=== PATIENT | male | born 1970 | race Caucasian/White ===

== ENCOUNTER 2018-06-26 06:25 | Emergency (ER) | payer OTHER ==
[2018-06-26 06:45] VITALS: BP 153/107; PULSE 88; TEMP 98; BMI 22.1
--- NOTE | 2018-06-26 07:09 | PDOC ---
History of Present Illness - General Chief Complaint: Alcohol intoxication Stated Complaint: INTOX Time Seen by Provider: 06/26/18 07:09 - History of Present Illness Initial Comments: 45yo M with PMH of HTN and alcohol intoxication brought in by a friend for intoxication and shoulder pain. Patient admits to drinking 6 beers, the most recent at 5am. Per chart review, patient presented to [facility] last week but was ineligible for detox and referred to a bilingual rehab facility. Patient denies going to rehab. He also complains of left shoulder pain for which he was assessed by Kianna. 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 Has no other acute complaints. Denies recent falls, fever, chills, chest pain, shortness of breath , or abdominal pain. Past History - Past Medical History Allergies/Adverse Reactions: Allergies Allergy/AdvReac Type Severity Reaction Status Date / Time No Known Allergies Allergy Verified 06/21/18 19:09 Home Medications: Ambulatory Orders NK [No Known Home Medication] 06/21/18 Asthma: No Cardiac Disorders: No Diabetes: No GI Disorders: No Seizures: No - Suicide/Smoking/Psychosocial Hx Smoking History: Unknown if ever smoked Have you smoked in the past 12 months: No Hx Alcohol Use: Yes Drug/Substance Use Hx: No Review of Systems - Review of Systems Comments:: Constitutional: no fever, no chills Cardiovascular: no chest pain Respiratory: no cough, no shortness of breath Gastrointestinal: no abdominal pain, no nausea, no vomiting Musculoskeletal: +shoulder pain, no myalgia Skin: no rash, no itching Neurologic: no headache, no dizziness *Physical Exam - Vital Signs Last Vital Signs Temp Pulse Resp BP Pulse Ox 98 F 88 18 153/107 H 100 06/26/18 06:25 06/26/18 06:25 06/26/18 06:25 06/26/18 06:25 06/26/18 06:25 - Physical Exam Comments: General: Awake, alert, and fully oriented, sleeping in stretchable but arousable Head: No signs of trauma Eyes: EOMI, sclera anicteric ENT: Moist mucus membranes Neck: Normal ROM, supple Lungs: Lungs clear, Normal breath sounds Cardio: Regular rhythm, S1 and S2 present Abdomen: Soft, nontender, nondistended Extremities: Distal pulses present; Left shoulder tender on drop can test, normal abduction and adduction with full range of motion. No overlying wound or lesion, neurovascularly intact SKIN: Warm, Dry, normal turgor Neurologic: Cranial nerves II through XII grossly intact. Normal speech Medical Decision Making - Medical Decision Making 45yo M with PMH of HTN and alcohol intoxication brought in by a friend for intoxication and shoulder pain. -DDX includes but not limited to rotator cuff injury, gout, pseudogout, rheumatoid arthitis, cellulitis, osteoarthritis -Presentation consistent with rotator cuff injury as patient tender upon drop can test. Has full range of motion. Neurovascularly intact. Afebrile -Ordered lidocaine patch to place over left shoulder, but patient wanted to leave before receiving one. Patient refused xray as he already had one at [facility]. -Advised patient to enter inpatient rehab but he did not want to stay for case management and asked to be discharged. -Referred to hr specialist -Discharged. 06/26/18 08:35 *DC/Admit/Observation/Transfer Diagnosis at time of Disposition: Shoulder pain, Intoxication - Discharge Dispostion Disposition: HOME Condition at time of disposition: Stable - Referrals Referrals: Rowan Lentz [Primary Care Provider] - Quoc Valdivia MD [Staff Physician] - - Patient Instructions Printed Discharge Instructions: DI for Rotator Cuff Injury, DI for Alcohol Abuse Additional Instructions: You came to the ED for alcohol intoxication and shoulder pain. You did not want us to refer you to a rehab or detox facility. Take [id number] motrin for your pain. Follow the instructions on the medication bottle. We have referred you to an orthopedic doctor. Call and make an appointment at the number provided. Immediate medical attention is required if you experience: Increased pain or swelling, signs of infection including fever and chills, nausea and vomiting, lightheadedness, inability to breathe or very rapid breathing, rapid irregular heartbeat, chest pain. If you think you are having an emergency, call for emergency medical services or present to the emergency department right away --- Usted vino a la jeremy de emergencias por intoxicacin por alcohol y dolor en el hombro. No quiso que lo remitiramos a un centro de rehabilitacin o desintoxicacin. [place] motrin de venta ashia para altamirano dolor. Siga las instrucciones en el envase del medicamento. Le hemos remitido a un mdico ortopdico. Llame y prasad dwain segundo en el nmero proporcionado. Se requiere atencin mdica inmediata si experimenta: Dolor o hinchazn incrementados, signos de infeccin que incluyen fiebre y escalofros, nuseas y vmitos, mareos, incapacidad para respirar o respiracin muy rpida, latidos irregulares rpidos del corazn, dolor en el pecho. Si randy que tiene dwain emergencia, llame para solicitar servicios mdicos de emergencia o presente al departamento de emergencias de inmediato - Post Discharge Activity
[2018-06-26] MEDS ORDERED: LIDOCAINE 5% TOPICAL PATCH TP ONE (07:48)
--- NOTE | 2018-06-26 08:09 | PDOC ---
Attending Attestation - Resident Resident Name: SharonOmairaHannah - ED Attending Attestation I have performed the following: I have examined & evaluated the patient, The case was reviewed & discussed with the resident, I agree w/resident's findings & plan - [facility] HPI: 06/26/18 08:06 48-year-old male with no significant past medical history other than alcohol and cocaine abuse in the past, recently evaluated at [facility] for detox/ rehabilitation on 06/21 but deemed nonemergent and referred, presents now with 3 days of left shoulder pain sustained after pushing a heavy appliance upstairs. The patient was seen at [facility] ED and had an x-ray performed prior to his [facility] visit, x-ray was reportedly normal at that time, he presents now because his shoulder still hurts when he abducts it. No further injuries or falls, no motor or sensory deficit, denies any other complaints. Admits to drinking beer last night, arrives here on his own. Does not wish for detox or rehabilitation at this time, wants to go home. - Physicial Exam PE: 06/26/18 08:07 Vitals as noted, blood pressure slightly elevated, heart rate normal, no tremors to suggest withdrawal Alert, well-appearing, seated on stretcher and ambulating about the emergency department Coherent speech, Sinhala-speaking Exam is atraumatic Shoulder has no obvious deformities, full range of motion with full strength with slight discomfort on full abduction. Full strength in the hand, neurovascularly intact distally. Gait stable, no tremors, no tongue fasciculations - Medical Decision Making 06/26/18 08:08 48-year-old male with alcohol abuse presents with left shoulder strain, neurovascularly intact. No history of direct injury to suggest fracture, had an x-ray at [facility] which was normal. Reassured regarding time frame of healing for shoulder strains and rotator cuff injuries, agrees with NSAIDs course and orthopedics referral as needed, understands return criteria. No indication for emergent imaging NSAIDs course and referral to orthopedics for consideration of MRI imaging as needed Declines detox or rehabilitation, no evidence of intoxication or withdrawal at this time Understands return criteria
[2018-06-26] MEDS ORDERED: LIDOCAINE PATCH REMOVAL MC SCH (22:00)
== END 2018-06-26 08:40 | disposition home or self-care (01) ==
LOC: JER 06:25
DX: F10.120 Alcohol abuse with intoxication, uncomplicated (principal); M25.512 Pain in left shoulder; I10 Essential (primary) hypertension
CPT/HCPCS: 99282-25

== ENCOUNTER 2018-07-09 08:17 | Inpatient (IN) | payer OTHER ==
[2018-07-09 08:35] VITALS: BMI 234.5
--- NOTE | 2018-07-09 08:42 | HP ---
CIWA Score Nausea/Vomitin Muscle Tremors: 2 Anxiety: 2 Agitation: 2 Paroxysmal Sweats: 1-Minimal Palms Moist Orientation: 0-Oriented Tacttile Disturbances: 1-Very Mild Itch/Numbness Auditory Disturbances: 1-Very Mild Visual Disturbances: 0-None Headache: 2-Mild CIWA-Ar Total Score: 13 - Admission Criteria [facility]ASAS Guidelines: Admission for Medically Managed Detox: Requires at least one of the followin. CIWA greater than 12 2. Seizures within the past 24 hours 3. Delirium tremens within the past 24 hours 4. Hallucinations within the past 24 hours 5. Acute intervention needed for co occurring medical disorder 6. Acute intervention needed for co occurring psychiatric disorder 7. Severe withdrawal that cannot be handled at a lower level of care (continued vomiting, continued diarrhea, abnormal vital signs) requiring intravenous medication and/or fluids 8. Patient presents the following: CIWA greater than 12 Admission Criteria Met: Admission criteria met Admission ROS [facility] - HPI Chief Complaint: i need help to stop drinking alcohol and cocaine Allergies/Adverse Reactions: Allergies Allergy/AdvReac Type Severity Reaction Status Date / Time No Known Allergies Allergy Verified 06/21/18 19:09 History of Present Illness: this 48 years old male with alcohol and cocaine dependence,seeking detox, withdrawal symptom,never been in detox before syncope alcohol need help to come in for detox Exam Limitations: No Limitations - Ebola screening Have you been sick,other than usual withdrawal symptoms: No - Review of Systems Constitutional: Loss of Appetite, Malaise, Night Sweats, Changes in sleep, Weakness, Unintentional Wgt. Loss EENT: reports: Nose Congestion Respiratory: reports: No Symptoms reported Cardiac: reports: No Symptoms Reported GI: reports: Nausea, Vomiting, Abdominal cramping : reports: No Symptoms Reported Musculoskeletal: reports: Back Pain, Muscle Pain Integumentary: reports: Dryness Neuro: reports: Headache, Tremors Endocrine: reports: No Symptoms Reported Hematology: reports: No Symptoms Reported Psychiatric: reports: No Sypmtoms Reported Other Systems: Reviewed and Negative Patient History - Patient Medical History Hx Asthma: No Hx Chronic Obstructive Pulmonary Disease (COPD): No Hx Cardiac Disorders: No Hx Congestive Heart Failure: No Hx Hypertension: No HX Cerebrovascular Accident: No Hx Seizures: No Hx Dementia: No Hx Diabetes: No Hx Gastrointestinal Disorders: No Hx Liver Disease: No Hx Genitourinary Disorders: No Hx Sexually Transmitted Disorders: No Hx Renal Disease (ESRD): No Hx Thyroid Disease: No Hx Human Immunodeficiency Virus (HIV): No (last 01/05 negative) Hx Hepatitis C: No Hx Depression: Yes Hx Suicide Attempt: No Hx Bipolar Disorder: No Hx Schizophrenia: No Other Medical History: nosuicidal,no homicidal - Patient Surgical History Past Surgical History: No - PPD History Previous Implant?: Yes Documented Results: Negative w/o proof Implanted On Prior [facility] Admission?: No PPD to be Administered?: Yes - Smoking Cessation Smoking history: Unknown if ever smoked Have you smoked in the past 12 months: No Hx Chewing Tobacco Use: No Initiated information on smoking cessation: Yes 'Breaking Loose' booklet given: 07/09/18 - Substance & Tx. History Hx Alcohol Use: Yes Hx Substance Use: No Substance Use Type: Alcohol Hx Substance Use Treatment: No - Substances Abused Alcohol Route: Oral Amount used: 1pint of rum/2 of 6 packs of 12 ozs of beer Age of first use: 20 Date of Last Use: 07/08/18 Family Disease History - Family Disease History Family Disease History: Other: Father (alcohol,sober) Admission Physical Exam S - Vital Signs Vital Signs: Vital Signs - 24 hr 07/09/18 08:30 Temperature 97.0 F L Pulse Rate 86 Respiratory 19 Rate Blood Pressure 122/80 - Physical General Appearance: Yes: Moderate Distress, Tremorous, Irritable, Sweating, Anxious HEENTM: Yes: Normal ENT Inspection, CECELIA, Pharynx Normal Respiratory: Yes: Lungs Clear, Normal Breath Sounds, No Respiratory Distress Neck: Yes: Within Normal Limits, Supple, Trachea in good position Breast: Yes: Within Normal Limits Cardiology: Yes: Within Normal Limits, Regular Rate, S1, S2 Abdominal: Yes: Within Normal Limits, Normal Bowel Sounds, Non Tender, Flat, Soft Genitourinary: Yes: Within Normal Limits Back: Yes: Muscle Spasm Musculoskeletal: Yes: Back pain, Muscle Pain Extremities: Yes: Tremors Neurological: Yes: Within Normal Limits, clamp truck driver II-XII NML intact, Fully Oriented, Alert, Motor Strength 5/5 Integumentary: Yes: Dry Lymphatic: Yes: Within Normal Limits - Diagnostic (1) Alcohol dependence with uncomplicated withdrawal Current Visit: Yes Status: Acute (2) Syncope Current Visit: Yes Status: Acute (3) Weight loss Current Visit: Yes Status: Acute Cleared for Admission [facility] - Detox or Rehab [facility] Level of Care: Medically Managed Detox Regimen/Protocol: Librium [facility] Breath Alcohol Content Breath Alcohol Content: 0 Urine Drug Screen - Results Drug Screen Negative: No Urine Drug Screen Results: THADDEUS-Cocaine, BZO-Benzodiazepines
[2018-07-09] MEDS ORDERED: MAGNESIUM CITRATE 300 ML BOTTLE PO PRN (09:12)
[2018-07-09] MEDS ORDERED: MAGNESIUM HYDROX 2400MG/30ML ORAL SUSPENSION 30 ML CUP PO PRN (09:12)
[2018-07-09] MEDS ORDERED: MENTHOL/PHENOL 1 EACH UD MM PRN (09:12)
[2018-07-09] MEDS ORDERED: LOPERAMIDE HCL 2 MG CAPSULE PO PRN (09:12)
[2018-07-09] MEDS ORDERED: guaiFENesin/D-METHORPHAN HB 10 ML UNIT-DOSE CUPS PO PRN (09:12)
[2018-07-09] MEDS ORDERED: MAG HYDROX/AL HYDROX/SIMETH 30 ML UNIT-DOSE CUP PO PRN (09:12)
[2018-07-09] MEDS ORDERED: P-EPHED 60MG/TRIPROLIDI 2.5MG TABLET PO PRN (09:12)
[2018-07-09] MEDS ORDERED: ACETAMINOPHEN 325 MG TABLET (FP) PO PRN (09:12)
[2018-07-09] MEDS ORDERED: chlordiazePOXIDE HCL 25 MG CAPSULE PO PRN (09:12)
[2018-07-09] MEDS: chlordiazePOXIDE HCL 25 MG CAPSULE PO SCH ×3 (11:01→22:03)
[2018-07-09] MEDS: PRENATAL VITAMINS W/ FOLIC ACID TABLET (FP) PO SCH (11:02)
[2018-07-09] MEDS: IBUPROFEN 400 MG TABLET (FP) PO PRN (16:36)
[2018-07-09 17:54] LABS: URINE APPEARANCE CLEAR; URINE BILIRUBIN NEGATIVE (<2.0 mg/dL); URINE COLOR YELLOW; URINE GLUCOSE (UA) NEGATIVE (NEGATIVE); URINE KETONE NEGATIVE (NEGATIVE); URINE LEUK ESTERASE NEGATIVE (NEGATIVE); URINE NITRITE NEGATIVE (NEGATIVE); URINE PROTEIN NEGATIVE (NEGATIVE); URINE UROBILINOGEN NEGATIVE mg/dL (0.2-1.0)
[2018-07-09] MEDS: MELATONIN 5 MG TABLETS PO PRN (22:03)
[2018-07-09] MEDS: THIAMINE HCL 100 MG TABLET (FP) PO SCH (22:03)
[2018-07-10] MEDS: chlordiazePOXIDE HCL 25 MG CAPSULE PO SCH ×4 (05:14→22:12)
[2018-07-10 10:09] LABS: HEMATOCRIT 37.3 % (35.4-49); HEMOGLOBIN 12.7 GM/dL (11.7-16.9); MCH 29.4 pg (25.7-33.7); MCHC 34.1 g/dl (32.0-35.9); MEAN CELL VOLUME 86.4 fl (80-96); MEAN PLT VOLUME 8.1 fl (7.5-11.1); PLATELET COUNT 248 K/MM3 (134-434); RBC 4.32 M/mm3 (4.00-5.60); RDW 14.2 % (11.9-15.9)
[2018-07-10] MEDS: PRENATAL VITAMINS W/ FOLIC ACID TABLET (FP) PO SCH (10:23)
[2018-07-10] MEDS: IBUPROFEN 400 MG TABLET (FP) PO PRN (10:23)
[2018-07-10 11:05] LABS: ALK PHOS 110 U/L (45-117); ANION GAP 12 MMOL/L (8-16); BILIRUBIN,TOTAL 0.6 mg/dL (0.2-1); BLOOD UREA NITROGEN 16 mg/dL (7-18); CHLORIDE 103 mmol/L (98-107); CO2 25 mmol/L (21-32); CREATININE 0.8 mg/dL (0.55-1.3); GLUCOSE,RANDOM 101 mg/dL (74-106); POTASSIUM 4.5 mmol/L (3.5-5.1); SGOT/AST 48 U/L (15-37); SGPT/ALT 39 U/L (13-61); SODIUM 139 mmol/L (136-145); TOT PROT 7.4 g/dl (6.4-8.2)
--- NOTE | 2018-07-10 11:28 | PN ---
S CIWA - CIWA Score Nausea/Vomitin Muscle Tremors: 4-Moderate,w/Arms Extend Anxiety: 4-Mod. Anxious/Guarded Agitation: 2 Paroxysmal Sweats: 3 Orientation: 0-Oriented Tacttile Disturbances: 1-Very Mild Itch/Numbness Auditory Disturbances: 0-None Visual Disturbances: 0-None Headache: 0-None Present CIWA-Ar Total Score: 16 [facility] Progress Note (SOAP) Subjective: Pain left arm, interrupted sleep, anxiety Objective: 07/10/18 11:27 Last Vital Signs Temp Pulse Resp BP Pulse Ox 96.9 F L 84 16 105/62 07/10/18 10:03 07/10/18 10:03 07/10/18 10:03 07/10/18 10:03 Laboratory Tests 07/09/18 07/09/18 07/10/18 10:48 11:00 05:45 WBC 6.0 RBC 4.32 Hgb 12.7 Hct 37.3 MCV 86.4 MCH 29.4 MCHC 34.1 RDW 14.2 Plt Count 248 MPV 8.1 Sodium Potassium Chloride Carbon Dioxide Anion Gap BUN Creatinine Creat Clearance w eGFR Random Glucose Calcium Total Bilirubin AST ALT Alkaline Phosphatase Total Protein Albumin Urine Color Yellow Urine Appearance Clear Urine pH 5.0 Ur Specific Ong 1.019 Urine Protein Negative Urine Glucose (UA) Negative Urine Ketones Negative Urine Blood Negative Urine Nitrite Negative Urine Bilirubin Negative Urine Urobilinogen Negative Ur Leukocyte Esterase Negative HIV 1&2 Antibody Screen Negative HIV P24 Antigen Negative 07/10/18 05:45 WBC RBC Hgb Hct MCV MCH MCHC RDW Plt Count MPV Sodium 139 Potassium 4.5 Chloride 103 Carbon Dioxide 25 Anion Gap 12 BUN 16 Creatinine 0.8 Creat Clearance w eGFR > 60 Random Glucose 101 Calcium 9.0 Total Bilirubin 0.6 AST 48 H ALT 39 Alkaline Phosphatase 110 Total Protein 7.4 Albumin 4.0 Urine Color Urine Appearance Urine pH Ur Specific Ong Urine Protein Urine Glucose (UA) Urine Ketones Urine Blood Urine Nitrite Urine Bilirubin Urine Urobilinogen Ur Leukocyte Esterase HIV 1&2 Antibody Screen HIV P24 Antigen Labs reviewed Assessment: 07/10/18 11:27 Withdrawal symptoms Plan: Continue detox Encouraged PO water intake
[2018-07-10] MEDS: THIAMINE HCL 100 MG TABLET (FP) PO SCH (22:12)
[2018-07-11] MEDS: chlordiazePOXIDE HCL 25 MG CAPSULE PO SCH (06:07)
[2018-07-11] MEDS: chlordiazePOXIDE 5 MG CAPSULE PO SCH ×3 (10:21→22:30)
[2018-07-11] MEDS: PRENATAL VITAMINS W/ FOLIC ACID TABLET (FP) PO SCH (10:21)
--- NOTE | 2018-07-11 15:03 | PN ---
S CIWA - CIWA Score Nausea/Vomitin-Mild Nausea/No Vomiting Muscle Tremors: 3 Anxiety: 2 Agitation: 3 Paroxysmal Sweats: 2 Orientation: 0-Oriented Tacttile Disturbances: 0-None Auditory Disturbances: 1-Very Mild Visual Disturbances: 0-None Headache: 1-Very Mild CIWA-Ar Total Score: 13 S Progress Note (SOAP) Subjective: Tremor, chills, sweating Objective: 07/11/18 15:02 Last Vital Signs Temp Pulse Resp BP Pulse Ox 98.3 F 98 H 17 113/69 07/11/18 13:44 07/11/18 13:44 07/11/18 13:44 07/11/18 13:44 Laboratory Tests 07/09/18 07/09/18 07/10/18 10:48 11:00 05:45 WBC 6.0 RBC 4.32 Hgb 12.7 Hct 37.3 MCV 86.4 MCH 29.4 MCHC 34.1 RDW 14.2 Plt Count 248 MPV 8.1 Sodium Potassium Chloride Carbon Dioxide Anion Gap BUN Creatinine Creat Clearance w eGFR Random Glucose Calcium Total Bilirubin AST ALT Alkaline Phosphatase Total Protein Albumin Urine Color Yellow Urine Appearance Clear Urine pH 5.0 Ur Specific [place] 1.019 Urine Protein Negative Urine Glucose (UA) Negative Urine Ketones Negative Urine Blood Negative Urine Nitrite Negative Urine Bilirubin Negative Urine Urobilinogen Negative Ur Leukocyte Esterase Negative RPR Titer HIV 1&2 Antibody Screen Negative HIV P24 Antigen Negative 07/10/18 07/10/18 05:45 05:45 WBC RBC Hgb Hct MCV MCH MCHC RDW Plt Count MPV Sodium 139 Potassium 4.5 Chloride 103 Carbon Dioxide 25 Anion Gap 12 BUN 16 Creatinine 0.8 Creat Clearance w eGFR > 60 Random Glucose 101 Calcium 9.0 Total Bilirubin 0.6 AST 48 H ALT 39 Alkaline Phosphatase 110 Total Protein 7.4 Albumin 4.0 Urine Color Urine Appearance Urine pH Ur Specific [place] Urine Protein Urine Glucose (UA) Urine Ketones Urine Blood Urine Nitrite Urine Bilirubin Urine Urobilinogen Ur Leukocyte Esterase RPR Titer Nonreactive HIV 1&2 Antibody Screen HIV P24 Antigen Labs reviewed Assessment: 07/11/18 15:02 Withdrawal symptoms Plan: Continue detox Encouraged PO water intake
[2018-07-11] MEDS: THIAMINE HCL 100 MG TABLET (FP) PO SCH (22:30)
[2018-07-12] MEDS: chlordiazePOXIDE 5 MG CAPSULE PO SCH (05:53)
[2018-07-12] MEDS: chlordiazePOXIDE HCL 10 MG CAPSULE PO SCH ×3 (10:38→22:15)
[2018-07-12] MEDS: PRENATAL VITAMINS W/ FOLIC ACID TABLET (FP) PO SCH (10:38)
[2018-07-12] MEDS: IBUPROFEN 400 MG TABLET (FP) PO PRN (10:39)
--- NOTE | 2018-07-12 12:51 | PN ---
BHS Progress Note (SOAP) Subjective: Tremor, interrupted sleep Objective: 07/12/18 12:50 Last Vital Signs Temp Pulse Resp BP Pulse Ox 97.0 F L 67 18 100/57 L 07/12/18 09:11 07/12/18 09:11 07/12/18 09:11 07/12/18 09:11 Laboratory Tests 07/09/18 07/09/18 07/10/18 10:48 11:00 05:45 WBC 6.0 RBC 4.32 Hgb 12.7 Hct 37.3 MCV 86.4 MCH 29.4 MCHC 34.1 RDW 14.2 Plt Count 248 MPV 8.1 Sodium Potassium Chloride Carbon Dioxide Anion Gap BUN Creatinine Creat Clearance w eGFR Random Glucose Calcium Total Bilirubin AST ALT Alkaline Phosphatase Total Protein Albumin Urine Color Yellow Urine Appearance Clear Urine pH 5.0 Ur Specific [place] 1.019 Urine Protein Negative Urine Glucose (UA) Negative Urine Ketones Negative Urine Blood Negative Urine Nitrite Negative Urine Bilirubin Negative Urine Urobilinogen Negative Ur Leukocyte Esterase Negative RPR Titer HIV 1&2 Antibody Screen Negative HIV P24 Antigen Negative 07/10/18 07/10/18 05:45 05:45 WBC RBC Hgb Hct MCV MCH MCHC RDW Plt Count MPV Sodium 139 Potassium 4.5 Chloride 103 Carbon Dioxide 25 Anion Gap 12 BUN 16 Creatinine 0.8 Creat Clearance w eGFR > 60 Random Glucose 101 Calcium 9.0 Total Bilirubin 0.6 AST 48 H ALT 39 Alkaline Phosphatase 110 Total Protein 7.4 Albumin 4.0 Urine Color Urine Appearance Urine pH Ur Specific [place] Urine Protein Urine Glucose (UA) Urine Ketones Urine Blood Urine Nitrite Urine Bilirubin Urine Urobilinogen Ur Leukocyte Esterase RPR Titer Nonreactive HIV 1&2 Antibody Screen HIV P24 Antigen Labs reviewed Assessment: 07/12/18 12:50 Withdrawal symptoms Plan: Continue detox Encouraged PO water intake
[2018-07-12] MEDS: THIAMINE HCL 100 MG TABLET (FP) PO SCH (22:15)
[2018-07-12] MEDS: MELATONIN 5 MG TABLETS PO PRN (22:16)
[2018-07-13] MEDS: chlordiazePOXIDE HCL 10 MG CAPSULE PO SCH (06:06)
[2018-07-13 06:24] VITALS: BP 94/63; PULSE 67; TEMP 97.1
--- NOTE | 2018-07-13 13:09 | DS ---
[facility] Detox Discharge Summary Admission Date: 07/09/18 Discharge Date: 07/13/18 - History Present History: Alcohol Dependence - Physical Exam Results Vital Signs: Vital Signs Temperature 97.1 F L 07/13/18 06:23 Pulse Rate 67 07/13/18 06:23 Respiratory Rate 18 07/13/18 06:23 Blood Pressure 94/63 07/13/18 06:23 O2 Sat by Pulse Oximetry (%) - Treatment Hospital Course: Detox Protocol Followed, Detoxed Safely, Responded well, Discharged Condition Good - Medication Discharge Medications: Ambulatory Orders NK [No Known Home Medication] 06/21/18 - AMA Did Patient Leave Against Medical Advice: No
== END 2018-07-13 10:57 | disposition home or self-care (01) | DRG 774 ==
LOC: YASAS 08:17 → Y3N 10:05
PROVIDERS: ADMIT Neuromusculoskeletal Medicine & OMM; ATTEND Neuromusculoskeletal Medicine & OMM
PROC: HZ2ZZZZ Detoxification Services for Substance Abuse Treatment (ICD-10-PCS; principal; 2018-07-09)
DX: F10.230 Alcohol dependence with withdrawal, uncomplicated (principal); F14.20 Cocaine dependence, uncomplicated; F32.9 Major depressive disorder, single episode, unspecified; R55 Syncope and collapse; M25.512 Pain in left shoulder; R63.4 Abnormal weight loss; Z68.23 Body mass index [BMI] 23.0-23.9, adult
CPT/HCPCS: 36415; 80053; 81003; 85027; 86593; 87389

== ENCOUNTER 2018-08-27 09:09 | Inpatient (IN) | payer OTHER ==
[2018-08-27 09:31] VITALS: BMI 23.3
--- NOTE | 2018-08-27 09:47 | HP ---
CIWA Score Nausea/Vomitin Muscle Tremors: 2 Anxiety: 2 Agitation: 2 Paroxysmal Sweats: 1-Minimal Palms Moist Orientation: 0-Oriented Tacttile Disturbances: 1-Very Mild Itch/Numbness Auditory Disturbances: 1-Very Mild Visual Disturbances: 0-None Headache: 2-Mild CIWA-Ar Total Score: 13 - Admission Criteria OASAS Guidelines: Admission for Medically Managed Detox: Requires at least one of the followin. CIWA greater than 12 2. Seizures within the past 24 hours 3. Delirium tremens within the past 24 hours 4. Hallucinations within the past 24 hours 5. Acute intervention needed for co occurring medical disorder 6. Acute intervention needed for co occurring psychiatric disorder 7. Severe withdrawal that cannot be handled at a lower level of care (continued vomiting, continued diarrhea, abnormal vital signs) requiring intravenous medication and/or fluids 8. Patient presents the following: CIWA greater than 12 Admission Criteria Met: Admission criteria met Admission ROS BHS - HPI Chief Complaint: i need help to stop drinking alcohol Allergies/Adverse Reactions: Allergies Allergy/AdvReac Type Severity Reaction Status Date / Time No Known Allergies Allergy Verified 08/27/18 09:39 History of Present Illness: this 48 years old male with alcohol dependence,seekining detox,withdrawal symptom,last detox [facility] 07/09/18 to 07/13/18 syncope alcohol related had previous admission before but relapse history of depression no significant period of sobriety Exam Limitations: No Limitations - Ebola screening Have you traveled outside of the country in the last 21 days: No Have you had contact with anyone from an Ebola affected area: No Have you been sick,other than usual withdrawal symptoms: No Do you have a fever: No - Review of Systems Constitutional: Loss of Appetite, Malaise, Night Sweats, Changes in sleep, Weakness, Unintentional Wgt. Loss EENT: reports: Tearing, Nose Congestion Respiratory: reports: No Symptoms reported Cardiac: reports: No Symptoms Reported GI: reports: Nausea, Poor Appetite, Abdominal cramping : reports: No Symptoms Reported Musculoskeletal: reports: Back Pain, Muscle Pain Integumentary: reports: Dryness Neuro: reports: Headache, Tremors Endocrine: reports: No Symptoms Reported Hematology: reports: No Symptoms Reported Psychiatric: reports: Judgement Intact, Mood/Affect Appropiate, Orientated x3, Agitated, Depressed Patient History - Patient Medical History Hx Anemia: No Hx Asthma: No Hx Chronic Obstructive Pulmonary Disease (COPD): No Hx Cancer: No Hx Cardiac Disorders: No Hx Congestive Heart Failure: No Hx Hypertension: No Hx Hypercholesterolemia: No Hx Pacemaker: No HX Cerebrovascular Accident: No Hx Seizures: No Hx Dementia: No Hx Diabetes: No Hx Gastrointestinal Disorders: No Hx Liver Disease: No Hx Genitourinary Disorders: No Hx Sexually Transmitted Disorders: No Hx Renal Disease (ESRD): No Hx Thyroid Disease: No Hx Human Immunodeficiency Virus (HIV): No (last 07/08 negative) Hx Hepatitis C: No Hx Depression: Yes Hx Suicide Attempt: No Hx Bipolar Disorder: No Hx Schizophrenia: No Other Medical History: no suicidal,no homicidal - Patient Surgical History Past Surgical History: No Hx Neurologic Surgery: No Hx Cataract Extraction: No Hx Cardiac Surgery: No Hx Lung Surgery: No Hx Breast Surgery: No Hx Breast Biopsy: No Hx Abdominal Surgery: No Hx Appendectomy: No Hx Cholecystectomy: No Hx Genitourinary Surgery: No Hx Section: No Hx Orthopedic Surgery: No Anesthesia Reaction: No - PPD History Previous Implant?: Yes Documented Results: Negative w/proof Implanted On Prior [facility] Admission?: Yes Date: 07/11/18 Results: 0 mm PPD to be Administered?: No - Smoking Cessation Smoking history: Unknown if ever smoked Have you smoked in the past 12 months: No Hx Chewing Tobacco Use: No - Substance & Tx. History Hx Alcohol Use: Yes Hx Substance Use: No Substance Use Type: Alcohol Hx Substance Use Treatment: Yes ([facility] 07/09/18 to 07/13/18) - Substances Abused Alcohol-beer Route: Oral Frequency: Daily Amount used: 2-6 pks. Age of first use: 20 Date of Last Use: 08/26/18 Family Disease History - Family Disease History Family Disease History: Other: Father (alcohol,sober) Admission Physical Exam BHS - Vital Signs Vital Signs: Vital Signs - 24 hr 08/27/18 09:18 Temperature 97.4 F L Pulse Rate 89 Respiratory 20 Rate Blood Pressure 122/76 - Physical General Appearance: Yes: Moderate Distress, Tremorous, Irritable, Sweating, Anxious HEENTM: Yes: Normal ENT Inspection, CECELIA, Pharynx Normal, Other (cataract left eye) Respiratory: Yes: Lungs Clear, Normal Breath Sounds, No Respiratory Distress Neck: Yes: Within Normal Limits, Supple, Trachea in good position Breast: Yes: Within Normal Limits Cardiology: Yes: Within Normal Limits, Regular Rhythm, Regular Rate, S1, S2 Abdominal: Yes: Normal Bowel Sounds, Non Tender, Flat, Soft, Organomegaly Genitourinary: Yes: Within Normal Limits Back: Yes: Within Normal Limits, Normal Inspection, Muscle Spasm Musculoskeletal: Yes: Back pain, Muscle Pain Extremities: Yes: Within Normal Limits, Normal Range of Motion, Tremors Neurological: Yes: Within Normal Limits, basketball player II-XII NML intact, Fully Oriented, Alert, Motor Strength 5/5 Integumentary: Yes: Dry Lymphatic: Yes: Within Normal Limits - Diagnostic (1) Alcohol dependence with uncomplicated withdrawal Current Visit: No Status: Resolved (2) Weight loss Current Visit: No Status: Acute (3) Depression Current Visit: No Status: Chronic (4) Syncope Current Visit: No Status: Chronic (5) Cataract, left eye Current Visit: Yes Status: Acute Cleared for Admission [facility] - Detox or Rehab [facility] Level of Care: Medically Managed Detox Regimen/Protocol: Librium S Breath Alcohol Content Breath Alcohol Content: 0.094 Urine Drug Screen - Results Drug Screen Negative: Yes
[2018-08-27] MEDS ORDERED: MAGNESIUM CITRATE 300 ML BOTTLE PO PRN (09:50)
[2018-08-27] MEDS ORDERED: hydrOXYzine PAMOATE 50 MG CAPSULE (FP) PO PRN (09:50)
[2018-08-27] MEDS ORDERED: ACETAMINOPHEN 325 MG TABLET (FP) PO PRN (09:50)
[2018-08-27] MEDS ORDERED: LOPERAMIDE HCL 2 MG CAPSULE PO PRN (09:50)
[2018-08-27] MEDS ORDERED: chlordiazePOXIDE HCL 25 MG CAPSULE PO PRN (09:50)
[2018-08-27] MEDS ORDERED: MENTHOL/PHENOL 1 EACH UD MM PRN (09:50)
[2018-08-27] MEDS ORDERED: MAGNESIUM HYDROX 2400MG/30ML ORAL SUSPENSION 30 ML CUP PO PRN (09:50)
[2018-08-27] MEDS ORDERED: P-EPHED 60MG/TRIPROLIDI 2.5MG TABLET PO PRN (09:50)
[2018-08-27] MEDS ORDERED: MAG HYDROX/AL HYDROX/SIMETH 30 ML UNIT-DOSE CUP PO PRN (09:50)
[2018-08-27] MEDS ORDERED: guaiFENesin/D-METHORPHAN HB 10 ML UNIT-DOSE CUPS PO PRN (09:50)
[2018-08-27] MEDS: PRENATAL VITAMINS W/ FOLIC ACID TABLET (FP) PO SCH (11:14)
[2018-08-27] MEDS: chlordiazePOXIDE HCL 25 MG CAPSULE PO SCH ×3 (11:14→23:46)
[2018-08-27 14:52] LABS: URINE APPEARANCE CLEAR; URINE BILIRUBIN NEGATIVE (<2.0 mg/dL); URINE COLOR STRAW; URINE GLUCOSE (UA) NEGATIVE (NEGATIVE); URINE KETONE NEGATIVE (NEGATIVE); URINE LEUK ESTERASE NEGATIVE (NEGATIVE); URINE NITRITE NEGATIVE (NEGATIVE); URINE PROTEIN NEGATIVE (NEGATIVE); URINE UROBILINOGEN NEGATIVE mg/dL (0.2-1.0)
[2018-08-27] MEDS ORDERED: MELATONIN 5 MG TABLETS PO PRN (22:00)
[2018-08-27] MEDS: THIAMINE HCL 100 MG TABLET (FP) PO SCH (23:46)
[2018-08-28] MEDS: chlordiazePOXIDE HCL 25 MG CAPSULE PO SCH ×4 (05:56→22:35)
[2018-08-28] MEDS: PRENATAL VITAMINS W/ FOLIC ACID TABLET (FP) PO SCH (10:11)
[2018-08-28 10:27] LABS: HEMATOCRIT 40.3 % (35.4-49); HEMOGLOBIN 12.8 GM/dL (11.7-16.9); MCH 27.5 pg (25.7-33.7); MCHC 31.7 g/dl (32.0-35.9); MEAN CELL VOLUME 86.7 fl (80-96); MEAN PLT VOLUME 8.5 fl (7.5-11.1); PLATELET COUNT 222 K/MM3 (134-434); RBC 4.65 M/mm3 (4.00-5.60); RDW 12.8 % (11.9-15.9); WHITE BLOOD COUNT 4.3 K/mm3 (4.0-10.0)
[2018-08-28 10:37] LABS: ALK PHOS 80 U/L (45-117); ANION GAP 9 MMOL/L (8-16); BILIRUBIN,TOTAL 0.4 mg/dL (0.2-1); BLOOD UREA NITROGEN 7 mg/dL (7-18); CALCIUM 8.6 mg/dL (8.5-10.1); CHLORIDE 99 mmol/L (98-107); CO2 28 mmol/L (21-32); CREATININE 0.9 mg/dL (0.55-1.3); GLUCOSE,RANDOM 71 mg/dL (74-106); POTASSIUM 4.5 mmol/L (3.5-5.1); SGOT/AST 30 U/L (15-37); SGPT/ALT 33 U/L (13-61); SODIUM 135 mmol/L (136-145); TOT PROT 7.2 g/dl (6.4-8.2)
[2018-08-28] MEDS: METHYL SALICYLATE/MENTHOL OINT 30 GM TUBE TP SCH ×2 (12:22→22:36)
[2018-08-28] MEDS: CYCLOBENZAPRINE HCL 10 MG TABLET (FP) PO SCH ×2 (13:31→22:35)
--- NOTE | 2018-08-28 16:00 | PN ---
[facility] CIWA - CIWA Score Nausea/Vomitin-No Nausea/No Vomiting Muscle Tremors: None Anxiety: 4-Mod. Anxious/Guarded Agitation: 2 Paroxysmal Sweats: No Perspiration Orientation: 0-Oriented Tacttile Disturbances: 2-Mild Itch/Numbness/Burn Auditory Disturbances: 2-Mild Harshness/Frighten Visual Disturbances: 2-Mild Sensitivity Headache: 0-None Present CIWA-Ar Total Score: 12 S Progress Note (SOAP) Subjective: Body Aches, Anxious. Objective: PATIENT A & O X 3, OBSERVED AMBULATING ON UNIT. IN NO ACUTE DISTRESS. 08/28/18 15:56 Vital Signs Temperature 97.9 F 08/28/18 15:31 Pulse Rate 74 08/28/18 15:31 Respiratory Rate 18 08/28/18 15:31 Blood Pressure 114/59 L 08/28/18 15:31 O2 Sat by Pulse Oximetry (%) Laboratory Tests 08/27/18 08/28/18 08/28/18 11:40 06:00 06:00 WBC 4.3 RBC 4.65 Hgb 12.8 Hct 40.3 MCV 86.7 MCH 27.5 MCHC 31.7 L RDW 12.8 Plt Count 222 MPV 8.5 Sodium 135 L Potassium 4.5 Chloride 99 Carbon Dioxide 28 Anion Gap 9 BUN 7 Creatinine 0.9 Creat Clearance w eGFR > 60 Random Glucose 71 L Calcium 8.6 Total Bilirubin 0.4 AST 30 ALT 33 Alkaline Phosphatase 80 Total Protein 7.2 Albumin 4.0 Urine Color Straw Urine Appearance Clear Urine pH 6.[address] [place] 1.004 L Urine Protein Negative Urine Glucose (UA) Negative Urine Ketones Negative Urine Blood Negative Urine Nitrite Negative Urine Bilirubin Negative Urine Urobilinogen Negative Ur Leukocyte Esterase Negative RPR Titer 08/28/18 06:00 WBC RBC Hgb Hct MCV MCH MCHC RDW Plt Count MPV Sodium Potassium Chloride Carbon Dioxide Anion Gap BUN Creatinine Creat Clearance w eGFR Random Glucose Calcium Total Bilirubin AST ALT Alkaline Phosphatase Total Protein Albumin Urine Color Urine Appearance Urine pH Ur Specific [place] Urine Protein Urine Glucose (UA) Urine Ketones Urine Blood Urine Nitrite Urine Bilirubin Urine Urobilinogen Ur Leukocyte Esterase RPR Titer Nonreactive LABS NOTED. Assessment: 08/28/18 15:57 WITHDRAWAL SYMPTOMS. Plan: CONTINUE DETOX. PATIENT REPORTS PAIN IN NECK AND LEFT UPPER BACK AREA X APPROX. 3 DAYS. ECG ORDERED TO R/O ACUTE CARDIAC DISORDER. RESULTS NOTED, NO EVIDENCE OF ACUTE CARDIAC DISORDER. PATIENT ADVISED TO FOLLOW-UP WITH CHEMICAL RADIATION TECHNICIAN AFTER DISCHARGE FROM DETOX UNIT FOR FURTHER EVALUATION IF PAIN CONDITION PERSISTS. PATIENT VERBALIZED UNDERSTANDING OF RECOMMENDATION.
[2018-08-28] MEDS: IBUPROFEN 400 MG TABLET (FP) PO PRN (18:13)
[2018-08-28] MEDS: THIAMINE HCL 100 MG TABLET (FP) PO SCH (22:35)
[2018-08-29] MEDS: chlordiazePOXIDE HCL 25 MG CAPSULE PO SCH (05:56)
[2018-08-29] MEDS: CYCLOBENZAPRINE HCL 10 MG TABLET (FP) PO SCH ×3 (05:56→22:28)
[2018-08-29] MEDS: METHYL SALICYLATE/MENTHOL OINT 30 GM TUBE TP SCH ×2 (10:48→22:28)
[2018-08-29] MEDS: PRENATAL VITAMINS W/ FOLIC ACID TABLET (FP) PO SCH (10:48)
[2018-08-29] MEDS: chlordiazePOXIDE 5 MG CAPSULE PO SCH ×3 (10:48→22:28)
[2018-08-29] MEDS: IBUPROFEN 400 MG TABLET (FP) PO PRN (10:52)
--- NOTE | 2018-08-29 11:44 | PN ---
[facility] CIWA - CIWA Score Nausea/Vomitin-No Nausea/No Vomiting Muscle Tremors: 3 Anxiety: 2 Agitation: 3 Paroxysmal Sweats: 3 Orientation: 0-Oriented Tacttile Disturbances: 0-None Auditory Disturbances: 0-None Visual Disturbances: 0-None Headache: 0-None Present CIWA-Ar Total Score: 11 [facility] Progress Note (SOAP) Subjective: left shoulder pain body aches sweats anxiety Objective: 08/29/18 11:49 Vital Signs Temperature 97.7 F 08/29/18 09:31 Pulse Rate 82 08/29/18 09:31 Respiratory Rate 18 08/29/18 09:31 Blood Pressure 130/69 08/29/18 09:31 O2 Sat by Pulse Oximetry (%) Laboratory Tests 08/27/18 08/28/18 08/28/18 11:40 06:00 06:00 WBC 4.3 RBC 4.65 Hgb 12.8 Hct 40.3 MCV 86.7 MCH 27.5 MCHC 31.7 L RDW 12.8 Plt Count 222 MPV 8.5 Sodium 135 L Potassium 4.5 Chloride 99 Carbon Dioxide 28 Anion Gap 9 BUN 7 Creatinine 0.9 Creat Clearance w eGFR > 60 Random Glucose 71 L Calcium 8.6 Total Bilirubin 0.4 AST 30 ALT 33 Alkaline Phosphatase 80 Total Protein 7.2 Albumin 4.0 Urine Color Straw Urine Appearance Clear Urine pH 6.0 Ur Specific [place] 1.004 L Urine Protein Negative Urine Glucose (UA) Negative Urine Ketones Negative Urine Blood Negative Urine Nitrite Negative Urine Bilirubin Negative Urine Urobilinogen Negative Ur Leukocyte Esterase Negative RPR Titer 08/28/18 06:00 WBC RBC Hgb Hct MCV MCH MCHC RDW Plt Count MPV Sodium Potassium Chloride Carbon Dioxide Anion Gap BUN Creatinine Creat Clearance w eGFR Random Glucose Calcium Total Bilirubin AST ALT Alkaline Phosphatase Total Protein Albumin Urine Color Urine Appearance Urine pH Ur Specific [place] Urine Protein Urine Glucose (UA) Urine Ketones Urine Blood Urine Nitrite Urine Bilirubin Urine Urobilinogen Ur Leukocyte Esterase RPR Titer Nonreactive aaox3 ambulating no acute distress Assessment: 08/29/18 11:50 withdrawal sx Plan: continue detox increase fluids lidocaine patch ordered naproxyn 500mg bid
--- NOTE | 2018-08-29 12:56 | EKG ---
Test Reason : Blood Pressure : / mmHG Vent. Rate : 064 BPM Atrial Rate : 064 BPM P-R Int : 144 ms QRS Dur : 088 ms QT Int : 408 ms P-R-T Axes : 043 035 048 degrees QTc Int : 420 ms NORMAL SINUS RHYTHM WITH SINUS ARRHYTHMIA MINIMAL VOLTAGE CRITERIA FOR LVH, MAY BE NORMAL VARIANT BORDERLINE ECG NO PREVIOUS ECGS AVAILABLE Confirmed by KRZYSZTOF RESTREPO MD ([id number]) on 08/29/2018 12:56:19 PM Referred By: Confirmed By:KRZYSZTOF RESTREPO MD
[2018-08-29] MEDS: NAPROXEN 500 MG TABLET (FP) PO SCH ×2 (14:25→22:28)
[2018-08-29] MEDS: LIDOCAINE 5% TOPICAL PATCH TP SCH (14:25)
[2018-08-29] MEDS: THIAMINE HCL 100 MG TABLET (FP) PO SCH (22:27)
[2018-08-29] MEDS: LIDOCAINE PATCH REMOVAL MC SCH (22:28)
[2018-08-30] MEDS: chlordiazePOXIDE 5 MG CAPSULE PO SCH (06:06)
[2018-08-30] MEDS: CYCLOBENZAPRINE HCL 10 MG TABLET (FP) PO SCH ×3 (06:06→23:07)
[2018-08-30] MEDS: chlordiazePOXIDE HCL 10 MG CAPSULE PO SCH ×3 (10:25→23:07)
[2018-08-30] MEDS: NAPROXEN 500 MG TABLET (FP) PO SCH ×2 (10:25→23:07)
[2018-08-30] MEDS: PRENATAL VITAMINS W/ FOLIC ACID TABLET (FP) PO SCH (10:25)
[2018-08-30] MEDS: METHYL SALICYLATE/MENTHOL OINT 30 GM TUBE TP SCH ×2 (10:25→23:08)
[2018-08-30] MEDS: LIDOCAINE 5% TOPICAL PATCH TP SCH (10:26)
--- NOTE | 2018-08-30 10:30 | PN ---
[facility] Progress Note (SOAP) Subjective: less pain to shoulder irritable Objective: 08/30/18 10:29 Vital Signs Temperature 97.3 F L 08/30/18 09:37 Pulse Rate 83 08/30/18 09:37 Respiratory Rate 18 08/30/18 09:37 Blood Pressure 129/62 08/30/18 09:37 O2 Sat by Pulse Oximetry (%) aaox3 ambulating no acute distress Assessment: 08/30/18 10:30 mild withdrawal Plan: continue detox increase fluids continue with lidocaine patch and naproxyn d/c in am
[2018-08-30] MEDS: THIAMINE HCL 100 MG TABLET (FP) PO SCH (23:07)
[2018-08-30] MEDS: LIDOCAINE PATCH REMOVAL MC SCH (23:08)
[2018-08-31] MEDS: CYCLOBENZAPRINE HCL 10 MG TABLET (FP) PO SCH (05:44)
[2018-08-31] MEDS: chlordiazePOXIDE HCL 10 MG CAPSULE PO SCH (05:45)
[2018-08-31 06:51] VITALS: BP 108/65; PULSE 84; TEMP 97.5
--- NOTE | 2018-08-31 09:29 | DS ---
[facility] Detox Discharge Summary Admission Date: 08/27/18 Discharge Date: 08/31/18 - History Present History: Alcohol Dependence, Cocaine Dependence - Physical Exam Results Vital Signs: Vital Signs Temperature 97.5 F L 08/31/18 06:50 Pulse Rate 84 08/31/18 06:50 Respiratory Rate 16 08/31/18 06:50 Blood Pressure 108/65 08/31/18 06:50 O2 Sat by Pulse Oximetry (%) - Treatment Hospital Course: Detox Protocol Followed, Detoxed Safely, Responded well, Discharged Condition Good, Rehab Referral Accepted - Medication Discharge Medications: Ambulatory Orders NK [No Known Home Medication] 06/21/18 - Diagnosis (1) Alcohol dependence with uncomplicated withdrawal Current Visit: Yes Status: Chronic (2) Cataract, left eye Current Visit: Yes Status: Chronic Qualifiers: Cataract type: unspecified Qualified Code(s): H26.9 - Unspecified cataract (3) Weight loss Current Visit: Yes Status: Acute (4) Depression Current Visit: Yes Status: Chronic Qualifiers: Depression Type: unspecified Qualified Code(s): F32.9 - Major depressive disorder, single episode, unspecified (5) Syncope Current Visit: Yes Status: Chronic Qualifiers: Syncope type: unspecified Qualified Code(s): R55 - Syncope and collapse (6) Cocaine use disorder Current Visit: Yes Status: Chronic (7) Shoulder pain Current Visit: No Status: Chronic Qualifiers: Laterality: left - AMA Did Patient Leave Against Medical Advice: No ([facility])
== END 2018-08-31 08:56 | disposition home or self-care (01) | DRG 774 ==
LOC: YASAS 09:09 → Y6N 10:03
PROC: HZ2ZZZZ Detoxification Services for Substance Abuse Treatment (ICD-10-PCS; principal; 2018-08-27)
DX: F10.230 Alcohol dependence with withdrawal, uncomplicated (principal); F14.90 Cocaine use, unspecified, uncomplicated; F32.9 Major depressive disorder, single episode, unspecified; H26.9 Unspecified cataract; M25.512 Pain in left shoulder; Z59.0 Homelessness
CPT/HCPCS: 36415; 80053; 81003; 85027; 86593; 93005; 93010

== ENCOUNTER 2018-10-30 10:42 | Inpatient (IN) | payer OTHER ==
[2018-10-30] MEDS ORDERED: SODIUM CHLORIDE 1,000 ML IV STA (11:14)
--- NOTE | 2018-10-30 11:26 | PDOC ---
History of Present Illness - General Chief Complaint: Pain, Acute Stated Complaint: INTOX Time Seen by Provider: 10/30/18 11:04 Past History - Past Medical History Allergies/Adverse Reactions: Allergies Allergy/AdvReac Type Severity Reaction Status Date / Time No Known Allergies Allergy Verified 10/30/18 10:58 Home Medications: Ambulatory Orders NK [No Known Home Medication] 06/21/18 Anemia: No Asthma: No Cancer: No Cardiac Disorders: No CVA: No COPD: No CHF: No Dementia: No Diabetes: No GI Disorders: No Disorders: No HTN: No Hypercholesterolemia: No Kidney Stones: No Liver Disease: No Seizures: No Thyroid Disease: No - Surgical History Abdominal Surgery: No Appendectomy: No Cardiac Surgery: No Cholecystectomy: No Lung Surgery: No Neurologic Surgery: No Orthopedic Surgery: No - Reproductive History Testicular Surgery: No - Suicide/Smoking/Psychosocial Hx Smoking History: Never smoked Have you smoked in the past 12 months: No 'Breaking Loose' booklet given: 07/09/18 Hx Alcohol Use: Yes Drug/Substance Use Hx: No Substance Use Type: Alcohol Hx Substance Use Treatment: Yes ([facility] 07/09/18 to 07/13/18) *Physical Exam - Vital Signs Last Vital Signs Temp Pulse Resp BP Pulse Ox 98.1 F 109 H 18 114/78 99 10/30/18 10:58 10/30/18 10:58 10/30/18 10:58 10/30/18 10:58 10/30/18 10:58 Moderate Sedation - Procedure Monitoring Vital Signs: Procedure Monitoring Vital Signs Temperature 98.1 F 10/30/18 10:58 Pulse Rate 109 H 10/30/18 10:58 Respiratory Rate 18 10/30/18 10:58 Blood Pressure 114/78 10/30/18 10:58 O2 Sat by Pulse Oximetry (%) 99 10/30/18 10:58
--- NOTE | 2018-10-30 11:27 | PDOC ---
History of Present Illness - General Chief Complaint: Pain, Acute Stated Complaint: INTOX Time Seen by Provider: 10/30/18 11:04 History Source: Patient Past History - Past Medical History Allergies/Adverse Reactions: Allergies Allergy/AdvReac Type Severity Reaction Status Date / Time No Known Allergies Allergy Verified 10/30/18 10:58 Home Medications: Ambulatory Orders NK [No Known Home Medication] 06/21/18 Anemia: No Asthma: No Cancer: No Cardiac Disorders: No CVA: No COPD: No CHF: No Dementia: No Diabetes: No GI Disorders: No Disorders: No HTN: No Hypercholesterolemia: No Kidney Stones: No Liver Disease: No Seizures: No Thyroid Disease: No - Surgical History Abdominal Surgery: No Appendectomy: No Cardiac Surgery: No Cholecystectomy: No Lung Surgery: No Neurologic Surgery: No Orthopedic Surgery: No - Reproductive History Testicular Surgery: No - Suicide/Smoking/Psychosocial Hx Smoking History: Never smoked Have you smoked in the past 12 months: No 'Breaking Loose' booklet given: 07/09/18 Hx Alcohol Use: Yes Drug/Substance Use Hx: No Substance Use Type: Alcohol Hx Substance Use Treatment: Yes ([facility] 07/09/18 to 07/13/18) Review of Systems - Review of Systems Constitutional: No: Chills, Fever Respiratory: No: Cough, Shortness of Breath Cardiac (ROS): No: Chest Pain, Lightheadedness, Palpitations, Syncope ABD/GI: No: Constipated, Diarrhea, Nausea, Vomiting, Abdominal cramping : No: Dysuria Musculoskeletal: Yes: Joint Pain. No: Joint Swelling Neurological: No: Headache, Dizziness *Physical Exam - Vital Signs Last Vital Signs Temp Pulse Resp BP Pulse Ox 98.1 F 109 H 18 114/78 99 10/30/18 10:58 10/30/18 10:58 10/30/18 10:58 10/30/18 10:58 10/30/18 10:58 - Physical Exam General Appearance: Yes: Appropriately Dressed, Intoxicated Neck: positive: Supple Respiratory/Chest: positive: Lungs Clear, Normal Breath Sounds. negative: Respiratory Distress Cardiovascular: positive: Regular Rate, S1, S2 Gastrointestinal/Abdominal: positive: Soft. negative: Tender Integumentary: positive: Dry, Warm Moderate Sedation - Procedure Monitoring Vital Signs: Procedure Monitoring Vital Signs Temperature 98.1 F 10/30/18 10:58 Pulse Rate 109 H 03/12/19 10:58 Respiratory Rate 18 10/30/18 10:58 Blood Pressure 114/78 10/30/18 10:58 O2 Sat by Pulse Oximetry (%) 99 10/30/18 10:58 ED Treatment Course - LABORATORY CBC & Chemistry Diagram: 10/30/18 11:35 10/30/18 11:35 Medical Decision Making - Medical Decision Making 10/30/18 11:41 48-year-old undomiciled male, history of depression, alcohol abuse, chronic L shoulder pain, here requesting detox. Last alcohol intake was this am per pt. No acute medical complaints. Denies recent fall. Denies any other illicit drugs recently, but per records, patient has a history of cocaine use. Of note , patient was discharged from [facility] this am after p/w ETOH intox and his chronic L shoulder pain See exam ETOH intox Req detox Last inpt detox 09/08 at [facility] No med complaints No recent fall Tachy to 109 and mostly somnolent in ED -IVF -librium to prevent withdrawal -medical clearance -arrange transfer to [facility] 10/30/18 11:47 Spoke to staff at [facility] who reports bed is available. Pt to be transferred via security once medically cleared in ER 10/30/18 12:48 EKG today C/F ? [facility] per ED attg, given deep TWI in lead V3 (of note no TWI in V2), similar findings on rpt EKG today. Changes new compared to EKG 09/08. Cardiac enzyme pending. Will admit to OBs tele. Of note, pt has no CP or SOB. Endorses L shoulder pain which is chronic in nature 10/30/18 12:52 10/30/18 13:30 I discussed case with hospitalist who recommends that I discuss case with cardiology at this time to discuss dispo 10/30/18 14:01 Case and EKG findings d/w Dr Gonzalez of cards who states if trop negative, pt can be admitted to tele. Hospitalist aware. On reassessment, pt more sober, requesting food at this time. Denies any CP or SOB. Trop neg *DC/Admit/Observation/Transfer Diagnosis at time of Disposition: Acute electrocardiogram changes Alcohol intoxication Qualifiers: Complication of substance-induced condition: uncomplicated Qualified Code(s): F10.920 - Alcohol use, unspecified with intoxication, uncomplicated - Discharge Dispostion Condition at time of disposition: Fair Decision to Admit order: Yes - Referrals Referrals: Nancy Santa [Primary Care Provider] - - Patient Instructions - Post Discharge Activity
[2018-10-30] MEDS ORDERED: KETOROLAC TROMETHAMINE 30 MG/1 ML VIAL ONE (11:28)
[2018-10-30] MEDS ORDERED: KETOROLAC TROMETHAMINE 30 MG/1 ML VIAL IVPUSH ONE (11:28)
[2018-10-30] MEDS ORDERED: chlordiazePOXIDE HCL 25 MG CAPSULE PO ONE (11:46)
[2018-10-30] MEDS ORDERED: chlordiazePOXIDE HCL 25 MG CAPSULE ONE (11:54)
[2018-10-30 12:07] LABS: BASO % 0.5 % (0-2.0); EOS % 0.8 % (0-4.5); HEMATOCRIT 37.8 % (35.4-49); HEMOGLOBIN 13.1 GM/dL (11.7-16.9); MCH 29.6 pg (25.7-33.7); MCHC 34.7 g/dl (32.0-35.9); MEAN CELL VOLUME 85.4 fl (80-96); MEAN PLT VOLUME 7.3 fl (7.5-11.1); MONO % 6.8 % (3.8-10.2); NEUT % 77.9 % (42.8-82.8); PLATELET COUNT 192 K/MM3 (134-434); RBC 4.43 M/mm3 (4.00-5.60); RDW 13.6 % (11.9-15.9)
[2018-10-30 12:28] LABS: INR 1.06 (0.83-1.09); PROTHROMBIN TIME (PATIENT) 12.5 SEC (9.7-13.0)
[2018-10-30 12:49] LABS: ALBUMIN 3.8 g/dl (3.4-5.0); ALK PHOS 88 U/L (45-117); ANION GAP 11 MMOL/L (8-16); BILIRUBIN,TOTAL 0.6 mg/dL (0.2-1); BLOOD UREA NITROGEN 7 mg/dL (7-18); CALCIUM 8.6 mg/dL (8.5-10.1); CHLORIDE 103 mmol/L (98-107); CO2 22 mmol/L (21-32); GLUCOSE,RANDOM 95 mg/dL (74-106); LIPASE 94 U/L (73-393); POTASSIUM 3.5 mmol/L (3.5-5.1); SGOT/AST 40 U/L (15-37); SGPT/ALT 36 U/L (13-61); SODIUM 136 mmol/L (136-145); TOT PROT 7.1 g/dl (6.4-8.2)
--- NOTE | 2018-10-30 13:48 | CON.CARD ---
Consult Consult Specialty:: Cardiology Reason for Consultation:: abnormal ekg - History of Present Illness History of Present Illness: 48-year-old undomiciled male, history of depression, alcohol abuse, chronic L shoulder pain, here requesting detox. Last alcohol intake was this am per pt. No acute medical complaints. Denies recent fall. Denies any other illicit drugs recently, but per records, patient has a history of cocaine use. Of note , patient was discharged from [facility] this am after p/w ETOH intox and his chronic L shoulder pain - History Source History Provided By: Patient, Medical Record - Alcohol/Substance Use Hx Alcohol Use: Yes - Smoking History Smoking history: Never smoked Have you smoked in the past 12 months: No Home Medications - Allergies Allergies/Adverse Reactions: Allergies Allergy/AdvReac Type Severity Reaction Status Date / Time No Known Allergies Allergy Verified 10/30/18 10:58 - Home Medications Home Medications: Ambulatory Orders NK [No Known Home Medication] 06/21/18 Family Disease History - Family Disease History Family Disease History: Other: Father (alcohol,sober) Review of Systems - Review of Systems Constitutional: reports: No Symptoms Eyes: reports: No Symptoms HENT: reports: No Symptoms Neck: reports: No Symptoms Cardiovascular: reports: No Symptoms Gastrointestinal: reports: No Symptoms Genitourinary: reports: No Symptoms Breasts: reports: No Symptoms Reported Musculoskeletal: reports: No Symptoms Integumentary: reports: No Symptoms Neurological: reports: No Symptoms Endocrine: reports: No Symptoms Hematology/Lymphatic: reports: No Symptoms Psychiatric: reports: No Symptoms Vital Signs: Vital Signs Temperature 98.1 F 10/30/18 10:58 Pulse Rate 109 H 10/30/18 10:58 Respiratory Rate 18 10/30/18 10:58 Blood Pressure 114/78 10/30/18 10:58 O2 Sat by Pulse Oximetry (%) 99 10/30/18 10:58 Constitutional: Yes: Well Nourished, No Distress, Calm Eyes: Yes: WNL, Conjunctiva Clear, EOM Intact HENT: Yes: WNL, Atraumatic, Normocephalic Neck: Yes: WNL, Supple, Trachea Midline Respiratory: Yes: WNL, Regular, CTA Bilaterally Gastrointestinal: Yes: WNL, Normal Bowel Sounds Renal/: Yes: WNL Cardiovascular: Yes: WNL, Regular Rate and Rhythm Heart Sounds: Yes: S1, S2 Musculoskeletal: Yes: WNL Extremities: Yes: WNL Integumentary: Yes: WNL Neurological: Yes: WNL, Alert, Oriented ...Motor Strength: WNL Psychiatric: Yes: WNL, Alert, Oriented - Other Data Labs, Other Data: CBC, BMP 10/30/18 11:35 10/30/18 11:35 INR, PTT INR 1.06 (0.83-1.09) 10/30/18 11:35 Troponin, BNP 10/30/18 11:35 Troponin I < 0.02 Troponin, BNP 10/30/18 11:35 Troponin I < 0.02 Laboratory Tests 10/30/18 10/30/18 10/30/18 11:35 11:35 11:35 WBC 7.0 RBC 4.43 Hgb 13.1 Hct 37.8 MCV 85.4 MCH 29.6 MCHC 34.7 RDW 13.6 Plt Count 192 MPV 7.3 L D Absolute Neuts (auto) 5.5 Neutrophils % 77.9 Lymphocytes % 14.0 Monocytes % 6.8 Eosinophils % 0.8 Basophils % 0.5 Nucleated RBC % 0 PT with INR 12.50 INR 1.06 Sodium 136 Potassium 3.5 Chloride 103 Carbon Dioxide 22 Anion Gap 11 BUN 7 Creatinine 1.0 Creat Clearance w eGFR > 60 Random Glucose 95 Hemoglobin A1c % Calcium 8.6 Phosphorus 3.1 Magnesium 2.1 Total Bilirubin 0.6 AST 40 H ALT 36 Alkaline Phosphatase 88 Creatine Kinase 526 H Creatine Kinase Index 0.7 CK-MB (CK-2) 4.1 H Troponin I < 0.02 Total Protein 7.1 Albumin 3.8 Triglycerides Cholesterol Total LDL Cholesterol HDL Cholesterol Lipase 94 Urine Color Urine Appearance Urine pH Ur Specific [place] Urine Protein Urine Glucose (UA) Urine Ketones Urine Blood Urine Nitrite Urine Bilirubin Urine Urobilinogen Ur Leukocyte Esterase Opiates Screen Methadone Screen Barbiturate Screen Phencyclidine Screen Ur Amphetamines Screen MDMA (Ecstasy) Screen Benzodiazepines Screen Cocaine Screen U Marijuana (THC) Screen Alcohol, Quantitative 10/30/18 10/30/18 10/30/18 14:11 14:12 16:30 WBC RBC Hgb Hct MCV MCH MCHC RDW Plt Count MPV Absolute Neuts (auto) Neutrophils % Lymphocytes % Monocytes % Eosinophils % Basophils % Nucleated RBC % PT with INR INR Sodium Potassium Chloride Carbon Dioxide Anion Gap BUN Creatinine Creat Clearance w eGFR Random Glucose Hemoglobin A1c % Calcium Phosphorus 2.9 Magnesium 2.0 Total Bilirubin AST ALT Alkaline Phosphatase Creatine Kinase Creatine Kinase Index CK-MB (CK-2) Troponin I Total Protein Albumin Triglycerides 73 Cholesterol 159 Total LDL Cholesterol 38 HDL Cholesterol 99 H Lipase Urine Color Straw Urine Appearance Clear Urine pH 6.0 Ur Specific [place] 1.006 L Urine Protein Negative Urine Glucose (UA) Negative Urine Ketones Negative Urine Blood Negative Urine Nitrite Negative Urine Bilirubin Negative Urine Urobilinogen Negative Ur Leukocyte Esterase Negative Opiates Screen Negative Methadone Screen Negative Barbiturate Screen Negative Phencyclidine Screen Negative Ur Amphetamines Screen Negative MDMA (Ecstasy) Screen Negative Benzodiazepines Screen Negative Cocaine Screen Negative U Marijuana (THC) Screen Negative Alcohol, Quantitative 32.3 H 10/30/18 16:30 WBC RBC Hgb Hct MCV MCH MCHC RDW Plt Count MPV Absolute Neuts (auto) Neutrophils % Lymphocytes % Monocytes % Eosinophils % Basophils % Nucleated RBC % PT with INR INR Sodium Potassium Chloride Carbon Dioxide Anion Gap BUN Creatinine Creat Clearance w eGFR Random Glucose Hemoglobin A1c % 4.6 Calcium Phosphorus Magnesium Total Bilirubin AST ALT Alkaline Phosphatase Creatine Kinase Creatine Kinase Index CK-MB (CK-2) Troponin I Total Protein Albumin Triglycerides Cholesterol Total LDL Cholesterol HDL Cholesterol Lipase Urine Color Urine Appearance Urine pH Ur Specific [place] Urine Protein Urine Glucose (UA) Urine Ketones Urine Blood Urine Nitrite Urine Bilirubin Urine Urobilinogen Ur Leukocyte Esterase Opiates Screen Methadone Screen Barbiturate Screen Phencyclidine Screen Ur Amphetamines Screen MDMA (Ecstasy) Screen Benzodiazepines Screen Cocaine Screen U Marijuana (THC) Screen Alcohol, Quantitative Imaging - Results Chest X-ray: Image Reviewed (no i/e) EKG: Image Reviewed (sr rep abn) Problem List - Problems (1) Acute electrocardiogram changes Code(s): R94.31 - ABNORMAL ELECTROCARDIOGRAM [ECG] [EKG] (2) Alcohol intoxication Code(s): F10.929 - ALCOHOL USE, UNSPECIFIED WITH INTOXICATION, UNSPECIFIED Qualifiers: Complication of substance-induced condition: uncomplicated Qualified Code(s ): F10.920 - Alcohol use, unspecified with intoxication, uncomplicated (3) Weight loss Code(s): R63.4 - ABNORMAL WEIGHT LOSS (4) Alcohol dependence with uncomplicated withdrawal Code(s): F10.230 - ALCOHOL DEPENDENCE WITH WITHDRAWAL, UNCOMPLICATED (5) Cataract, left eye Code(s): H26.9 - UNSPECIFIED CATARACT Qualifiers: Cataract type: unspecified Qualified Code(s): H26.9 - Unspecified cataract (6) Cocaine use disorder Code(s): F14.10 - COCAINE ABUSE, UNCOMPLICATED (7) Depression Code(s): F32.9 - MAJOR DEPRESSIVE DISORDER, SINGLE EPISODE, UNSPECIFIED Qualifiers: Depression Type: unspecified Qualified Code(s): F32.9 - Major depressive disorder, single episode, unspecified (8) Shoulder pain Code(s): M25.519 - PAIN IN UNSPECIFIED SHOULDER Qualifiers: Laterality: left (9) Syncope Code(s): R55 - SYNCOPE AND COLLAPSE Qualifiers: Syncope type: unspecified Qualified Code(s): R55 - Syncope and collapse Assessment/Plan etoh abuse/intoxication abnormal ekg l shoulder pain r/o mi - ist tni neg h/o cocaine use Plan rx for ETOH withdrawal echo EST when medically stable
[2018-10-30] MEDS ORDERED: FOLIC ACID INJECTION - 1 MG, THIAMINE HCL 100 MG, MULTIVIT INJECTION ADULT 10 ML in SOD... IVPB ONE (13:53)
[2018-10-30 14:25] LABS: URINE APPEARANCE CLEAR; URINE BILIRUBIN NEGATIVE (<2.0 mg/dL); URINE COLOR STRAW; URINE GLUCOSE (UA) NEGATIVE (NEGATIVE); URINE KETONE NEGATIVE (NEGATIVE); URINE LEUK ESTERASE NEGATIVE (NEGATIVE); URINE NITRITE NEGATIVE (NEGATIVE); URINE PROTEIN NEGATIVE (NEGATIVE); URINE UROBILINOGEN NEGATIVE mg/dL (0.2-1.0)
[2018-10-30] MEDS ORDERED: ASPIRIN 81 MG CHEWABLE TABLETS PO ONE (14:40)
[2018-10-30] MEDS ORDERED: chlordiazePOXIDE HCL 10 MG CAPSULE PO PRN (14:42)
[2018-10-30 14:46] LABS: MAGNESIUM 2.1 mg/dL (1.8-2.4); PHOSPHOROUS 3.1 mg/dL (2.5-4.9)
--- NOTE | 2018-10-30 14:52 | HP ---
CHIEF COMPLAINT: detox request PCP: Dr. Pedraza HISTORY OF PRESENT ILLNESS: 48 y/o homeless M with PMH depression, cocaine abuse, alcohol abuse, chronic L shoulder pain, who presents to the ED requesting detox. As per ED staff, pt was d/c from [facility] this AM for alcohol withdrawal tx, and subsequently presented to [facility] ED. Pt poor historian likely 2/2 current state of withdrawal. States that last drink was this AM and consisted of "branham and liquor." Unable to quantify. During this time, pt only c/o L shoulder pain, exacerbated by active and passive ROM. Without further complaint. Denies [place], fever, chills, N/V, chest pain or pressure, or changes in urinary or bowel function. As per ED staff, pt received a bed at [facility] to continue detox. However, was recommended to stay at [facility] for cardiac medical clearance prior to doing so due to new EKG changes compared to previous (08/2018): deep TWI in lead V3. ER course was notable for: (1) librium 50mg x 1 (2) toradol 30mg x 1 (3) IVF NS 1L Recent Travel: denies PAST MEDICAL HISTORY: as above PAST SURGICAL HISTORY: denies Social History: homeless. unable to obtain due to pt condition, see above Smoking: Alcohol: Drugs: Family History: as above Allergies No Known Allergies Allergy (Verified 10/30/18 10:58) HOME MEDICATIONS: Home Medications Medication Instructions Recorded NK [No Known Home Medication] 06/21/18 REVIEW OF SYSTEMS CONSTITUTIONAL: Absent: fever, chills, diaphoresis, generalized weakness, malaise, loss of appetite, weight change HEENT: Absent: rhinorrhea, nasal congestion, throat pain, throat swelling, difficulty swallowing, mouth swelling, ear pain, eye pain, visual changes CARDIOVASCULAR: Absent: chest pain, syncope, palpitations, irregular heart rate, lightheadedness , peripheral edema RESPIRATORY: Absent: cough, shortness of breath, dyspnea with exertion, orthopnea, wheezing, stridor, hemoptysis GASTROINTESTINAL: Absent: abdominal pain, abdominal distension, nausea, vomiting, diarrhea, constipation, melena, hematochezia GENITOURINARY: Absent: dysuria, frequency, urgency, hesitancy, hematuria, flank pain, genital pain MUSCULOSKELETAL: Absent: myalgia, arthralgia, joint swelling, back pain, neck pain SKIN: Absent: rash, itching, pallor HEMATOLOGIC/IMMUNOLOGIC: Absent: easy bleeding, easy bruising, lymphadenopathy, frequent infections ENDOCRINE: Absent: unexplained weight gain, unexplained weight loss, heat intolerance, cold intolerance NEUROLOGIC: +confusion Absent: headache, focal weakness or paresthesias, dizziness, unsteady gait, seizure, mental status changes, bladder or bowel incontinence PSYCHIATRIC: Absent: anxiety, depression, suicidal or homicidal ideation, hallucinations. PHYSICAL EXAMINATION Vital Signs - 24 hr 10/30/18 10/30/18 10:58 14:39 Temperature 98.1 F Pulse Rate 109 H Pulse Rate [ 96 H Apical] Respiratory 18 18 Rate Blood Pressure 114/78 Blood Pressure 118/64 [Left Arm] O2 Sat by Pulse 99 99 Oximetry (%) GENERAL: AAOx1 (self). pleasant, resting in bed HEAD: Normal with no signs of trauma. EYES: Pupils equal, round and reactive to light, extraocular movements intact, sclera anicteric, conjunctiva clear. EARS, NOSE, THROAT: Ears normal, nares patent, oropharynx clear without exudates. Moist mucous membranes. NECK: Normal range of motion, supple without lymphadenopathy LUNGS: Breath sounds equal, clear to auscultation bilaterally. No wheezes, and no crackles. No accessory muscle use. HEART: +tachycardic rate and rhythm, normal S1 and S2 without murmur, rub or gallop. ABDOMEN: Soft, nontender, not distended, normoactive bowel sounds, no guarding, no rebound, no masses. MUSCULOSKELETAL: +decreased active and passive ROM - R shoulder. UPPER EXTREMITIES: 2+ radial pulses, warm, well-perfused. No cyanosis. No clubbing. No peripheral edema. LOWER EXTREMITIES: 2+ pt pulses, warm, well-perfused. No calf tenderness. +RLE: with trace edema at ankle. without bruising NEUROLOGICAL: unable to assess due to pt condition- however able to move UE, LE PSYCHIATRIC: Cooperative however appears confused SKIN: Warm, dry, normal turgor Laboratory Results - last 24 hr 10/30/18 10/30/18 10/30/18 11:35 11:35 11:35 WBC 7.0 RBC 4.43 Hgb 13.1 Hct 37.8 MCV 85.4 MCH 29.6 MCHC 34.7 RDW 13.6 Plt Count 192 MPV 7.3 L D Absolute Neuts (auto) 5.5 Neutrophils % 77.9 Lymphocytes % 14.0 Monocytes % 6.8 Eosinophils % 0.8 Basophils % 0.5 Nucleated RBC % 0 PT with INR 12.50 INR 1.06 Sodium 136 Potassium 3.5 Chloride 103 Carbon Dioxide 22 Anion Gap 11 BUN 7 Creatinine 1.0 Creat Clearance w eGFR > 60 Random Glucose 95 Calcium 8.6 Phosphorus 3.1 Magnesium 2.1 Total Bilirubin 0.6 AST 40 H ALT 36 Alkaline Phosphatase 88 Creatine Kinase 526 H Creatine Kinase Index 0.7 CK-MB (CK-2) 4.1 H Troponin I < 0.02 Total Protein 7.1 Albumin 3.8 Lipase 94 Urine Color CXR: without acute abnormalities EKG: NSR, rate 90bpm, qtc 457ms. with new deep TWI in v3 compared to previous from 08/2018 ASSESSMENT/PLAN: 48 y/o homeless M with PMH depression, cocaine abuse, alcohol abuse, chronic L shoulder pain, who presents to the ED requesting detox. #New EKG changes -new deep TWI v3 compared to 09/08, however asymptomatic. without chest pain -possibility of wellen syndrome, though less likely as changes only seen in V3. without biphasic T waves as well -as per cardio rec, will give asax1 -f/u lipid profile, trops, serial EKG -f/u ECHO -cont to follow lytes; dilia K, Mg, P. K>4, Mg>2 -cardio on board: Dr. Richardson -tele monitoring #alcohol withdrawal -current CIWA 6-7; mild withdrawal -will give banana bag, follow lytes -c/w thiamine, folic -librium protocol #L shoulder pain, R foot pain -f/u XR imaging (L shoulder, R foot) -f/u uric acid to r/o gout #F/E/N IV NS 100 cc/hr continue to follow lytes NPO to avoid aspiration d/t lethargy. reassess as day progresses #PPX DVT: lovenox #Dispo obs tele upon d/c can continue detox at [facility], once cardiac clearance obtained Visit type - Emergency Visit Emergency Visit: Yes ED Registration Date: 10/30/18 Care time: The patient presented to the Emergency Department on the above date and was hospitalized for further evaluation of their emergent condition. - New Patient This patient is new to me today: Yes Date on this admission: 10/30/18 - Critical Care Critical Care patient: No
[2018-10-30] MEDS ORDERED: ASPIRIN 81 MG CHEWABLE TABLETS ONE (15:03)
[2018-10-30 15:39] LABS: COCAINE, UR NEGATIVE ng/ml (CUTOFF=300); METHADONE, UR NEGATIVE ng/ml (CUTOFF=300); OPIATES, URI NEGATIVE ng/ml (CUTOFF=300); PHENCYCLIDINE,URINE NEGATIVE ng/ml (CUTOFF=25); URINE AMPHETAMINES NEGATIVE ng/ml (CUTOFF=500); URINE BARBITURATES NEGATIVE ng/ml (CUTOFF=200); URINE BENZODIAZEPINES NEGATIVE ng/ml (CUTOFF=200)
[2018-10-30 15:53] VITALS: BMI 23.3
[2018-10-30] MEDS: chlordiazePOXIDE HCL 25 MG CAPSULE PO SCH ×2 (15:58→22:05)
[2018-10-30 17:29] LABS: PHOSPHOROUS 2.9 mg/dL (2.5-4.9)
--- NOTE | 2018-10-30 18:39 | PN ---
Teaching Attending Note Name of Resident: Patrica Gonzalez ATTENDING PHYSICIAN STATEMENT I saw and evaluated the patient. I reviewed the resident's note and discussed the case with the resident. I agree with the resident's findings and plan as documented. SUBJECTIVE: Complains of Left shoulder and R foot pain. Denies trauma. No chest pain/palpitations/SOB. Last alcoholic beverage today. OBJECTIVE: Afebrile, Hemodynamically Stable. Last Vital Signs Temp Pulse Resp BP Pulse Ox 98.8 F 108 H 18 134/78 98 10/30/18 15:56 10/30/18 15:56 10/30/18 15:56 10/30/18 15:56 10/30/18 15:30 HEENT - Atraumatic, Normocephalic. Neuro - Drowsy but rousable to orientation X 3. Heart - S1, S2, tachy Lungs - clear to auscultation, no crackles/wheeze. Abdomen - Soft, non-tender. Bowel Sounds normal. Extremities - R foot swelling/tenderness. No bruising. No calf tenderness. MS - R shoulder pain on ROM Laboratory Results - last 24 hr 10/30/18 10/30/18 10/30/18 11:35 11:35 11:35 WBC 7.0 RBC 4.43 Hgb 13.1 Hct 37.8 MCV 85.4 MCH 29.6 MCHC 34.7 RDW 13.6 Plt Count 192 MPV 7.3 L D Absolute Neuts (auto) 5.5 Neutrophils % 77.9 Lymphocytes % 14.0 Monocytes % 6.8 Eosinophils % 0.8 Basophils % 0.5 Nucleated RBC % 0 PT with INR 12.50 INR 1.06 Sodium 136 Potassium 3.5 Chloride 103 Carbon Dioxide 22 Anion Gap 11 BUN 7 Creatinine 1.0 Creat Clearance w eGFR > 60 Random Glucose 95 Calcium 8.6 Phosphorus 3.1 Magnesium 2.1 Total Bilirubin 0.6 AST 40 H ALT 36 Alkaline Phosphatase 88 Creatine Kinase 526 H Creatine Kinase Index 0.7 CK-MB (CK-2) 4.1 H Troponin I < 0.02 Total Protein 7.1 Albumin 3.8 Triglycerides Cholesterol Total LDL Cholesterol HDL Cholesterol Lipase 94 Urine Color Urine Appearance Urine pH Ur Specific [place] Urine Protein Urine Glucose (UA) Urine Ketones Urine Blood Urine Nitrite Urine Bilirubin Urine Urobilinogen Ur Leukocyte Esterase Opiates Screen Methadone Screen Barbiturate Screen Phencyclidine Screen Ur Amphetamines Screen MDMA (Ecstasy) Screen Benzodiazepines Screen Cocaine Screen U Marijuana (THC) Screen Alcohol, Quantitative 10/30/18 10/30/18 10/30/18 14:11 14:12 16:30 WBC RBC Hgb Hct MCV MCH MCHC RDW Plt Count MPV Absolute Neuts (auto) Neutrophils % Lymphocytes % Monocytes % Eosinophils % Basophils % Nucleated RBC % PT with INR INR Sodium Potassium Chloride Carbon Dioxide Anion Gap BUN Creatinine Creat Clearance w eGFR Random Glucose Calcium Phosphorus 2.9 Magnesium 2.0 Total Bilirubin AST ALT Alkaline Phosphatase Creatine Kinase Creatine Kinase Index CK-MB (CK-2) Troponin I Total Protein Albumin Triglycerides 73 Cholesterol 159 Total LDL Cholesterol 38 HDL Cholesterol 99 H Lipase Urine Color Straw Urine Appearance Clear Urine pH 6.0 Ur Specific [place] 1.006 L Urine Protein Negative Urine Glucose (UA) Negative Urine Ketones Negative Urine Blood Negative Urine Nitrite Negative Urine Bilirubin Negative Urine Urobilinogen Negative Ur Leukocyte Esterase Negative Opiates Screen Negative Methadone Screen Negative Barbiturate Screen Negative Phencyclidine Screen Negative Ur Amphetamines Screen Negative MDMA (Ecstasy) Screen Negative Benzodiazepines Screen Negative Cocaine Screen Negative U Marijuana (THC) Screen Negative Alcohol, Quantitative 32.3 H Current Medications Generic Name Dose Route Start Last Admin Trade Name Freq PRN Reason Stop Dose Admin Chlordiazepoxide HCl 10 mg 11/01/18 13:00 Librium - PO 11/02/18 12:59 Q12H PRN Signs/symptoms of Withdrawal Chlordiazepoxide HCl 10 mg 10/30/18 14:42 Librium - PO 10/31/18 14:41 Q8H PRN Signs/symptoms of Withdrawal Chlordiazepoxide HCl 25 mg 10/30/18 15:00 10/30/18 15:58 Librium - PO 10/31/18 07:01 25 mg Q8H LEILA Administration Chlordiazepoxide HCl 15 mg 10/31/18 15:00 Librium - PO 11/01/18 07:01 Q8H LEILA Chlordiazepoxide HCl 10 mg 11/01/18 15:00 Librium - PO 11/02/18 15:01 Q8H LEILA Folic Acid 1 mg 10/31/18 10:00 Folic Acid - PO DAILY LEILA Folic Acid 1 mg/ Thiamine HCl 1,000 mls @ 125 mls/hr 10/30/18 13:53 10/30/18 15:02 100 mg/ Multivitamins/Minerals IVPB 10/30/18 21:52 125 mls/hr 10 ml/ Sodium Chloride ONCE ONE Administration Sodium Chloride 1,000 mls @ 100 mls/hr 10/30/18 15:00 Normal Saline - IV ASDIR LEILA Thiamine HCl 100 mg 10/31/18 10:00 Vitamin B1 - PO DAILY LEILA ASSESSMENT AND PLAN: 48 year old undomiciled male with Depression, Polysubstance Abuse (cocaine, alcohol), presents asking for detox as per ED notes. Currently patient only reports attending for L shoulder and R foot pain., recommended for admission due to ECG abnormality. CXR: no acute cardiopulmonary findings. EKG: NSR rate 90, non-specific T wave abnormality with some inversion in V3. 1. Non-specific ECG changes - recommended for admission by Cardiology. Chest Pain free, denies episodes of palpitations, lightheadedness, nausea, diaphoresis Electrolytes normal. Urine toxicology negative. Troponin negative, will trend Echo requested Cardiology formally consulted for further eval and recommendations. Telemonitoring. 2. Left shoulder and R foot pain/swelling Etiology unclear - patient poor historian - no clear history of trauma Xray Left shoulder and R foot requested. Possible gout R foot - will add on Uric Acid levels. 3. Acute Alcohol Withdrawal On Librium protocol. Banana bag Daily thiamine, Folic Acid. IV hydration ongoing. Electrolyte monitoring. DVT Px - Lovenox SQ
[2018-10-30 20:58] LABS: BASO % 0.2 % (0-2.0); EOS % 0.8 % (0-4.5); HEMATOCRIT 37.7 % (35.4-49); HEMOGLOBIN 12.8 GM/dL (11.7-16.9); LYMPH % 8.9 % (8-40); MCHC 33.8 g/dl (32.0-35.9); MEAN CELL VOLUME 85.9 fl (80-96); MEAN PLT VOLUME 7.4 fl (7.5-11.1); NEUT % 82.1 % (42.8-82.8); PLATELET COUNT 179 K/MM3 (134-434); RBC 4.39 M/mm3 (4.00-5.60); WHITE BLOOD COUNT 5.4 K/mm3 (4.0-10.0)
[2018-10-30 21:11] LABS: PROTHROMBIN TIME (PATIENT) 11.8 SEC (9.7-13.0)
[2018-10-30 21:27] LABS: URIC ACID 5.8 mg/dL (2.6-7.2)
[2018-10-30] MEDS: SODIUM CHLORIDE 1,000 ML IV SCH (22:00)
[2018-10-31] MEDS ORDERED: chlordiazePOXIDE 5 MG CAPSULE PO PRN (04:45)
[2018-10-31] MEDS: chlordiazePOXIDE HCL 25 MG CAPSULE PO SCH (06:41)
--- NOTE | 2018-10-31 07:15 | EKG ---
Test Reason : Blood Pressure : / mmHG Vent. Rate : 098 BPM Atrial Rate : 098 BPM P-R Int : 134 ms QRS Dur : 084 ms QT Int : 342 ms P-R-T Axes : 052 034 041 degrees QTc Int : 436 ms NORMAL SINUS RHYTHM NONSPECIFIC T WAVE ABNORMALITY ABNORMAL ECG WHEN COMPARED WITH ECG OF 28-AUG-2018 14:57, VENT. RATE HAS INCREASED BY [address] NO LONGER ELEVATED IN INFERIOR LEADS Confirmed by MD MILY, BOWEN ([id number]) on 10/30/2018 5:13:56 PM Referred By: Confirmed By:BOWEN MINOR MD
[2018-10-31 07:41] LABS: PHOSPHOROUS 2.6 mg/dL (2.5-4.9)
[2018-10-31] MEDS: SODIUM CHLORIDE 1,000 ML IV SCH (09:43)
[2018-10-31] MEDS ORDERED: THIAMINE HCL 100 MG TABLET (FP) PO SCH (10:00)
[2018-10-31] MEDS ORDERED: ENOXAPARIN NA (PORCINE) 40 MG/0.4 ML DISP.SYRIN SQ SCH (10:00)
[2018-10-31] MEDS ORDERED: FOLIC ACID 1 MG TABLET (FP) PO SCH (10:00)
--- NOTE | 2018-10-31 10:12 | PN ---
Progress Note, Physician History of Present Illness: 48-year-old undomiciled male, history of depression, alcohol abuse, chronic L shoulder pain, here requesting detox. Last alcohol intake was this am per pt. No acute medical complaints. Denies recent fall. Denies any other illicit drugs recently, but per records, patient has a history of cocaine use. Of note , patient was discharged from [facility] this am after p/w ETOH intox and his chronic L shoulder pain - Current Medication List Current Medications: Active Medications Chlordiazepoxide HCl (Librium -) 10 mg PO Q12H PRN PRN Reason: Signs/symptoms of Withdrawal Stop: 11/02/18 12:59 Chlordiazepoxide HCl (Librium -) 15 mg PO Q8H [facility] Stop: 11/01/18 07:01 Chlordiazepoxide HCl (Librium -) 10 mg PO Q8H [facility] Stop: 11/02/18 15:01 Chlordiazepoxide HCl (Librium -) 10 mg PO Q8H PRN PRN Reason: Signs/symptoms of Withdrawal Stop: 10/31/18 14:41 Enoxaparin Sodium (Lovenox -) 40 mg SQ DAILY [facility] Last Admin: 10/31/18 09:42 Dose: 40 mg Folic Acid (Folic Acid -) 1 mg PO DAILY [facility] Last Admin: 10/31/18 09:41 Dose: 1 mg Sodium Chloride (Normal Saline -) 1,000 mls @ 100 mls/hr IV ASDIR [facility] Last Admin: 10/31/18 09:43 Dose: 100 mls/hr Thiamine HCl (Vitamin B1 -) 100 mg PO DAILY [facility] Last Admin: 10/31/18 09:42 Dose: 100 mg - Objective Vital Signs: Vital Signs Temperature 97.7 F 10/31/18 09:39 Pulse Rate 84 10/31/18 09:39 Respiratory Rate 18 10/31/18 09:39 Blood Pressure 142/86 10/31/18 09:39 O2 Sat by Pulse Oximetry (%) 99 10/30/18 21:00 Eyes: Yes: WNL, Conjunctiva Clear, EOM Intact HENT: Yes: WNL, Atraumatic, Normocephalic Neck: Yes: WNL, Supple, Trachea Midline Cardiovascular: Yes: WNL, Regular Rate and Rhythm Respiratory: Yes: WNL, Regular, CTA Bilaterally Gastrointestinal: Yes: WNL, Normal Bowel Sounds Genitourinary: Yes: WNL Musculoskeletal: Yes: WNL Extremities: Yes: WNL Edema: No Integumentary: Yes: WNL Neurological: Yes: WNL, Alert, Oriented ...Motor Strength: WNL Psychiatric: Yes: WNL Labs: CBC, BMP 10/30/18 20:30 10/30/18 11:35 INR, PTT INR 1.00 (0.83-1.09) 10/30/18 20:30 Problem List - Problems (1) Acute electrocardiogram changes Code(s): R94.31 - ABNORMAL ELECTROCARDIOGRAM [ECG] [EKG] (2) Alcohol intoxication Code(s): F10.929 - ALCOHOL USE, UNSPECIFIED WITH INTOXICATION, UNSPECIFIED Qualifiers: Complication of substance-induced condition: uncomplicated Qualified Code(s ): F10.920 - Alcohol use, unspecified with intoxication, uncomplicated (3) Weight loss Code(s): R63.4 - ABNORMAL WEIGHT LOSS (4) Alcohol dependence with uncomplicated withdrawal Code(s): F10.230 - ALCOHOL DEPENDENCE WITH WITHDRAWAL, UNCOMPLICATED (5) Cataract, left eye Code(s): H26.9 - UNSPECIFIED CATARACT Qualifiers: Cataract type: unspecified Qualified Code(s): H26.9 - Unspecified cataract (6) Cocaine use disorder Code(s): F14.10 - COCAINE ABUSE, UNCOMPLICATED (7) Depression Code(s): F32.9 - MAJOR DEPRESSIVE DISORDER, SINGLE EPISODE, UNSPECIFIED Qualifiers: Depression Type: unspecified Qualified Code(s): F32.9 - Major depressive disorder, single episode, unspecified (8) Shoulder pain Code(s): M25.519 - PAIN IN UNSPECIFIED SHOULDER Qualifiers: Laterality: left (9) Syncope Code(s): R55 - SYNCOPE AND COLLAPSE Qualifiers: Syncope type: unspecified Qualified Code(s): R55 - Syncope and collapse Assessment/Plan etoh abuse/intoxication abnormal ekg l shoulder pain r/o mi - ist tni neg h/o cocaine use Plan rx for ETOH withdrawal echo EST today
--- NOTE | 2018-10-31 11:07 | EKG ---
Test Reason : Blood Pressure : / mmHG Vent. Rate : 083 BPM Atrial Rate : 083 BPM P-R Int : 138 ms QRS Dur : 088 ms QT Int : 374 ms P-R-T Axes : 052 029 036 degrees QTc Int : 439 ms NORMAL SINUS RHYTHM MINIMAL VOLTAGE CRITERIA FOR LVH, MAY BE NORMAL VARIANT NONSPECIFIC ST AND T WAVE ABNORMALITY ABNORMAL ECG WHEN COMPARED WITH ECG OF 30-OCT-2018 15:43, NO SIGNIFICANT CHANGE WAS FOUND Confirmed by [email or web address] RESTREPO MD ([id number]) on 10/31/2018 11:07:26 AM Referred By: David PERERA Confirmed By:[id number] RESTREPO MD
--- NOTE | 2018-10-31 11:14 | ECHO ---
Name: GAIL HURLEY Exam:Adult Echocardiogram Study Date: 10/31/2018 07:38 AM Age: 48 yrs Reason For Study: ekg changes Height: 67 in Weight: 158 lb BSA: 1.8 m2 MMode/2D Measurements & Calculations IVSd: 0.92 cm Ao root diam: 3.8 cm LVIDd: 4.4 cm LA dimension: 2.7 cm LVIDs: 3.1 cm ACS: 2.5 cm LVPWd: 1.0 cm IVSs: 1.1 cm LVPWs: 1.1 cm EDV(Teich): 88.9 ml ESV(Teich): 37.6 ml Doppler Measurements & Calculations MV E max david: 63.4 cm/sec Ao V2 max: 110.9 cm/sec MV A max david: 57.8 cm/sec Ao max P.9 mmHg MV E/A: 1.1 Ao V2 mean: 75.9 cm/sec Ao mean P.7 mmHg Ao V2 VTI: 18.7 cm TR max david: 219.2 cm/sec Med Peak E' David: 9.5 cm/sec TR max P.3 mmHg Med E/e': 6.7 Lat Peak E' David: 8.4 cm/sec Lat E/e': 7.6 Procedure A two-dimensional transthoracic echocardiogram with color flow and Doppler was performed. Left Ventricle The left ventricular size, thickness and function are normal. The left ventricular ejection fraction is normal. Left Ventricular Filling pattern is normal for age. The left ventricular wall motion is irene l. Right Ventricle The right ventricle is normal size. There is normal right ventricular wall thickness. The right ventr icular systolic function is normal. The right ventricular wall motion is normal. Atria Normal left and right atrial size and function. Right atrial size is normal. The interatrial septum i s intact with no evidence for an atrial septal defect. Mitral Valve There is mild mitral valve thickening. There is no mitral valve stenosis. There is trace mitral regur gitation. Tricuspid Valve The tricuspid valve is normal in structure and function. There is no tricuspid stenosis. There is tra ce tricuspid regurgitation. Right ventricular systolic pressure is normal. Aortic Valve The aortic valve is normal in structure and function. No hemodynamically significant valvular aortic stenosis. No aortic regurgitation is present. Pulmonic Valve The pulmonic valve is not well visualized. There is no pulmonic valvular stenosis. There is no pulmon ic valvular regurgitation. Great Vessels The aortic root is normal size. Pericardium/Pleura There is no pericardial effusion. Interpretation Summary There is trace mitral regurgitation. The left ventricular size, thickness and function are normal The left ventricular ejection fraction is normal. Left Ventricular Filling pattern is normal for age. The left ventricular wall motion is normal. There is trace tricuspid regurgitation. Right ventricular systolic pressure is normal. MD Bright Richardson 10/31/2018 11:14 AM
--- NOTE | 2018-10-31 14:18 | TRE ---
Protocol Name : MARLO Max Work Load (METS*10) : 74 Time In Exercise Phase : 00:06:17 Max. Systolic BP : 158 mmHg Max Diastolic BP : 94 mmHg Max Heart Rate : 136 BPM Max Predicted Heart Rate : 174 BPM Attending Physician : DR. RESTREPO Reason For Termination : Syncope Reason for Test : CP Stress Protocol : MARLO Rest HR : 80 BPM PeakEx METs : 7.4 METS Recovery ECG Response (OLD) : Diagnosis : Negative stress test. at peak exercise no diagnostic ekg changes no arrhythmias no ischemic symptoms Confirmed by LAURO MOSQUEDA, [id number] ([id number]) on 10/31/2018 2:18:32 PM
[2018-10-31] MEDS ORDERED: chlordiazePOXIDE 5 MG CAPSULE PO SCH (15:00)
[2018-10-31] MEDS ORDERED: ACETAMINOPHEN 325 MG TABLET (FP) PO PRN (15:22)
[2018-10-31] MEDS ORDERED: IBUPROFEN 400 MG TABLET (FP) PO PRN (15:23)
--- NOTE | 2018-10-31 15:27 | PN ---
Physical Exam: SUBJECTIVE: Patient seen and examined at bedside. Complains of ongoing Left shoulder and R foot pain, per pt has been to multiple hospitals, in [place] they gave him steroid shot which helped. Denies trauma. No chest pain/ palpitations/SOB, fever, n/v/d, urinary sx. Last alcoholic beverage on 09/27 OBJECTIVE: Vital Signs Period Temp Pulse Resp BP Sys/Pena Pulse Ox Last 24 Hr 97.7 F-99.1 F 83-108 18-20 117-142/67-86 96-99 GENERAL: AAOx3. pleasant, resting in bed. CIWA 0-2 HEAD: Normal with no signs of trauma. EYES: Pupils equal, round and reactive to light, extraocular movements intact, sclera anicteric, conjunctiva clear. EARS, NOSE, THROAT: nares patent, oropharynx clear without exudates. Moist mucous membranes. NECK: Normal range of motion, supple without lymphadenopathy LUNGS: CTAB HEART: RRR, normal S1 and S2 without murmur, rub or gallop. ABDOMEN: Soft, nontender, not distended, normoactive bowel sounds, no guarding, no rebound, no masses. MUSCULOSKELETAL: +decreased active and passive ROM - R shoulder. R shoulder tenderness. +mild tremor UPPER EXTREMITIES: 2+ radial pulses, warm, well-perfused. No cyanosis. No clubbing. No peripheral edema. LOWER EXTREMITIES: 2+ pt pulses, warm, well-perfused. No calf tenderness. +RLE: with trace edema at ankle. without bruising NEUROLOGICAL: strength sensation grossly intact. CN II-XII grossly intact PSYCHIATRIC: Cooperative however appears confused SKIN: Warm, dry, normal turgor Laboratory Results - last 24 hr 10/30/18 10/30/18 10/30/18 14:11 16:30 16:30 WBC RBC Hgb Hct MCV MCH MCHC RDW Plt Count MPV Absolute Neuts (auto) Neutrophils % Lymphocytes % Monocytes % Eosinophils % Basophils % Nucleated RBC % PT with INR INR Hemoglobin A1c % 4.6 Uric Acid Phosphorus 2.9 Magnesium 2.0 Creatine Kinase Creatine Kinase Index CK-MB (CK-2) Troponin I Triglycerides 73 Cholesterol 159 Total LDL Cholesterol 38 HDL Cholesterol 99 H Opiates Screen Negative Methadone Screen Negative Barbiturate Screen Negative Phencyclidine Screen Negative Ur Amphetamines Screen Negative MDMA (Ecstasy) Screen Negative Benzodiazepines Screen Negative Cocaine Screen Negative U Marijuana (THC) Screen Negative Alcohol, Quantitative 32.3 H 10/30/18 10/30/18 10/30/18 20:30 20:30 20:30 WBC 5.4 RBC 4.39 Hgb 12.8 Hct 37.7 MCV 85.9 MCH 29.0 MCHC 33.8 RDW 14.0 Plt Count 179 MPV 7.4 L Absolute Neuts (auto) 4.5 Neutrophils % 82.1 Lymphocytes % 8.9 D Monocytes % 8.0 Eosinophils % 0.8 Basophils % 0.2 Nucleated RBC % 0 PT with INR 11.80 INR 1.00 Hemoglobin A1c % Uric Acid 5.8 Phosphorus Magnesium Creatine Kinase 332 H Creatine Kinase Index 0.6 CK-MB (CK-2) 2.2 Troponin I < 0.02 Triglycerides Cholesterol Total LDL Cholesterol HDL Cholesterol Opiates Screen Methadone Screen Barbiturate Screen Phencyclidine Screen Ur Amphetamines Screen MDMA (Ecstasy) Screen Benzodiazepines Screen Cocaine Screen U Marijuana (THC) Screen Alcohol, Quantitative 10/31/18 10/31/18 05:50 05:50 WBC RBC Hgb Hct MCV MCH MCHC RDW Plt Count MPV Absolute Neuts (auto) Neutrophils % Lymphocytes % Monocytes % Eosinophils % Basophils % Nucleated RBC % PT with INR INR Hemoglobin A1c % Uric Acid Phosphorus 2.6 Magnesium 2.0 Creatine Kinase 216 Creatine Kinase Index 0.5 CK-MB (CK-2) 1.1 Troponin I Triglycerides Cholesterol Total LDL Cholesterol HDL Cholesterol Opiates Screen Methadone Screen Barbiturate Screen Phencyclidine Screen Ur Amphetamines Screen MDMA (Ecstasy) Screen Benzodiazepines Screen Cocaine Screen U Marijuana (THC) Screen Alcohol, Quantitative Active Medications Generic Name Dose Route Start Last Admin Trade Name Freq PRN Reason Stop Dose Admin Acetaminophen 650 mg 10/31/18 15:22 Tylenol - PO Q4H PRN PAIN LEVEL 7-10 Chlordiazepoxide HCl 10 mg 11/01/18 13:00 Librium - PO 11/02/18 12:59 Q12H PRN Signs/symptoms of Withdrawal Chlordiazepoxide HCl 15 mg 10/31/18 15:00 10/31/18 14:32 Librium - PO 11/01/18 07:01 15 mg Q8H LEILA Administration Chlordiazepoxide HCl 10 mg 11/01/18 15:00 Librium - PO 11/02/18 15:01 Q8H LEILA Enoxaparin Sodium 40 mg 10/31/18 10:00 10/31/18 09:42 Lovenox - SQ 40 mg DAILY LEILA Administration Folic Acid 1 mg 10/31/18 10:00 10/31/18 09:41 Folic Acid - PO 1 mg DAILY LEILA Administration Sodium Chloride 1,000 mls @ 100 mls/hr 10/30/18 15:00 10/31/18 09:43 Normal Saline - IV 100 mls/hr ASDIR LEILA Administration Ibuprofen 400 mg 10/31/18 15:23 Motrin - PO Q8H PRN PAIN LEVEL 4 - 6 Thiamine HCl 100 mg 10/31/18 10:00 10/31/18 09:42 Vitamin B1 - PO 100 mg DAILY LEILA Administration CXR: without acute abnormalities EKG: NSR, rate 90bpm, qtc 457ms. with new deep TWI in v3 compared to previous from 08/2018 ECHO Interpretation Summary There is trace mitral regurgitation. The left ventricular size, thickness and function are normal The left ventricular ejection fraction is normal. Left Ventricular Filling pattern is normal for age. The left ventricular wall motion is normal. There is trace tricuspid regurgitation. Right ventricular systolic pressure is normal. ASSESSMENT/PLAN: 48 y/o homeless M with PMH depression, cocaine abuse, alcohol abuse, chronic L shoulder pain, presents with Left shoulder pain, recommended for admission due to ECG abnormality. Denies chest pain. #Non-specific EKG changes - resolved. recommended for admission by Cardiology. Chest Pain free, denies episodes of palpitations, lightheadedness, nausea, diaphoresis -new deep TWI v3 compared to 09/08, however asymptomatic. without chest pain. trops neg x3 -possibility of wellen syndrome, though less likely as changes only seen in V3. without biphasic T waves as well -as per cardio rec, s/p asax1 -lipid profile: HDL 99, no need for statin low ASCVD score -Urine toxicology negative. -ECHO nl -stress test nl -cont to follow lytes; dilia K, Mg, P. K>4, Mg>2 -cardio on board: Dr. Richardson -tele monitoring -A1c 4.6 #alcohol withdrawal - pt [facility] and wants to detox here -current CIWA 0-2 -s/p banana bag, follow lytes -c/w thiamine, folic -librium protocol #L shoulder pain, R foot pain - Etiology unclear, no clear history of trauma. per pt has been to multiple hospitals, in [place] they gave him steroid shot which helped. - XR imaging (L shoulder, R foot) - no acute frx. +arthritic changes -Uric Acid level 5.8 -ortho consult for L shoulder steroid shot -pain ctl: motrin/tylenol #F/E/N PO hydration continue to follow lytes regular diet #PPX DVT: lovenox SQ #Dispo tele Visit type - Emergency Visit Emergency Visit: Yes ED Registration Date: 10/30/18 Care time: The patient presented to the Emergency Department on the above date and was hospitalized for further evaluation of their emergent condition. - New Patient This patient is new to me today: Yes Date on this admission: 10/31/18 - Critical Care Critical Care patient: No
--- NOTE | 2018-10-31 15:48 | PN ---
Teaching Attending Note Name of Resident: Loi Urbina ATTENDING PHYSICIAN STATEMENT I saw and evaluated the patient. I reviewed the resident's note and discussed the case with the resident. I agree with the resident's findings and plan as documented. SUBJECTIVE: Complains of ongoing Left shoulder and R foot pain. Denies trauma. No chest pain/palpitations/SOB. Last alcoholic beverage 2/7 ago OBJECTIVE: Afebrile, Hemodynamically Stable. Last Vital Signs Temp Pulse Resp BP Pulse Ox 98.3 F 83 20 117/82 96 10/31/18 14:00 10/31/18 14:00 10/31/18 14:00 10/31/18 14:00 10/31/18 09:00 HEENT - Atraumatic, Normocephalic. Neuro - AAO X 3. Tone/Power normal all 4 extremities. Heart - S1, S2, RRR Lungs - clear to auscultation, no crackles/wheeze. Abdomen - Soft, non-tender. Bowel Sounds normal. Extremities - R foot swelling/tenderness. No bruising. No calf tenderness. MS - R shoulder tenderness and decreased ROM Laboratory Results - last 24 hr 10/30/18 10/30/18 10/30/18 16:30 16:30 20:30 WBC 5.4 RBC 4.39 Hgb 12.8 Hct 37.7 MCV 85.9 MCH 29.0 MCHC 33.8 RDW 14.0 Plt Count 179 MPV 7.4 L Absolute Neuts (auto) 4.5 Neutrophils % 82.1 Lymphocytes % 8.9 D Monocytes % 8.0 Eosinophils % 0.8 Basophils % 0.2 Nucleated RBC % 0 PT with INR INR Hemoglobin A1c % 4.6 Uric Acid Phosphorus 2.9 Magnesium 2.0 Creatine Kinase Creatine Kinase Index CK-MB (CK-2) Troponin I Triglycerides 73 Cholesterol 159 Total LDL Cholesterol 38 HDL Cholesterol 99 H Alcohol, Quantitative 32.3 H 10/30/18 10/30/18 10/31/18 20:30 20:30 05:50 WBC RBC Hgb Hct MCV MCH MCHC RDW Plt Count MPV Absolute Neuts (auto) Neutrophils % Lymphocytes % Monocytes % Eosinophils % Basophils % Nucleated RBC % PT with INR 11.80 INR 1.00 Hemoglobin A1c % Uric Acid 5.8 Phosphorus 2.6 Magnesium 2.0 Creatine Kinase 332 H Creatine Kinase Index 0.6 CK-MB (CK-2) 2.2 Troponin I < 0.02 Triglycerides Cholesterol Total LDL Cholesterol HDL Cholesterol Alcohol, Quantitative 10/31/18 05:50 WBC RBC Hgb Hct MCV MCH MCHC RDW Plt Count MPV Absolute Neuts (auto) Neutrophils % Lymphocytes % Monocytes % Eosinophils % Basophils % Nucleated RBC % PT with INR INR Hemoglobin A1c % Uric Acid Phosphorus Magnesium Creatine Kinase 216 Creatine Kinase Index 0.5 CK-MB (CK-2) 1.1 Troponin I Triglycerides Cholesterol Total LDL Cholesterol HDL Cholesterol Alcohol, Quantitative Current Medications Generic Name Dose Route Start Last Admin Trade Name Freq PRN Reason Stop Dose Admin Acetaminophen 650 mg 10/31/18 15:22 Tylenol - PO Q4H PRN PAIN LEVEL 7-10 Chlordiazepoxide HCl 10 mg 11/01/18 13:00 Librium - PO 11/02/18 12:59 Q12H PRN Signs/symptoms of Withdrawal Chlordiazepoxide HCl 15 mg 10/31/18 15:00 10/31/18 14:32 Librium - PO 11/01/18 07:01 15 mg Q8H LEILA Administration Chlordiazepoxide HCl 10 mg 11/01/18 15:00 Librium - PO 11/02/18 15:01 Q8H LEILA Enoxaparin Sodium 40 mg 10/31/18 10:00 10/31/18 09:42 Lovenox - SQ 40 mg DAILY LEILA Administration Folic Acid 1 mg 10/31/18 10:00 10/31/18 09:41 Folic Acid - PO 1 mg DAILY LEILA Administration Sodium Chloride 1,000 mls @ 100 mls/hr 10/30/18 15:00 10/31/18 09:43 Normal Saline - IV 100 mls/hr ASDIR LEILA Administration Ibuprofen 400 mg 10/31/18 15:23 Motrin - PO Q8H PRN PAIN LEVEL 4 - 6 Thiamine HCl 100 mg 10/31/18 10:00 10/31/18 09:42 Vitamin B1 - PO 100 mg DAILY LEILA Administration ASSESSMENT AND PLAN: 48 year old undomiciled male with Depression, Polysubstance Abuse (cocaine, alcohol), presents with Left shoulder pain, recommended for admission due to ECG abnormality. Denies chest pain. CXR: no acute cardiopulmonary findings. EKG: NSR rate 90, non-specific T wave abnormality with some inversion in V3. 1. Non-specific ECG changes - recommended for admission by Cardiology. Chest Pain free, denies episodes of palpitations, lightheadedness, nausea, diaphoresis Electrolytes normal. Urine toxicology negative. Troponin negative x 3 Echo normal Cardiology formally consulted for further eval and recommendations - recommended Stress Test which was also negative. 2. Left shoulder and R foot pain/swelling Etiology unclear - patient poor historian - no clear history of trauma Xray Left shoulder and R foot - no fracture Uric Acid level 5.8 Orthopedic eval requested. 3. Acute Alcohol Withdrawal On Librium protocol. Banana bag given Daily thiamine, Folic Acid. IV hydration ongoing. Electrolyte monitoring. DVT Px - Lovenox SQ
--- NOTE | 2018-10-31 17:56 | DS ---
Physical Exam: SUBJECTIVE: pt left AMA OBJECTIVE: Vital Signs Period Temp Pulse Resp BP Sys/Pena Pulse Ox Last 24 Hr 97.7 F-99.1 F 83-96 18-20 117-142/67-86 96-99 PHYSICAL EXAM pt left AMA LABS Laboratory Results - last 24 hr 10/30/18 10/30/18 10/30/18 16:30 20:30 20:30 WBC 5.4 RBC 4.39 Hgb 12.8 Hct 37.7 MCV 85.9 MCH 29.0 MCHC 33.8 RDW 14.0 Plt Count 179 MPV 7.4 L Absolute Neuts (auto) 4.5 Neutrophils % 82.1 Lymphocytes % 8.9 D Monocytes % 8.0 Eosinophils % 0.8 Basophils % 0.2 Nucleated RBC % 0 PT with INR 11.80 INR 1.00 Hemoglobin A1c % 4.6 Uric Acid Phosphorus Magnesium Creatine Kinase Creatine Kinase Index CK-MB (CK-2) Troponin I 10/30/18 10/31/18 10/31/18 20:30 05:50 05:50 WBC RBC Hgb Hct MCV MCH MCHC RDW Plt Count MPV Absolute Neuts (auto) Neutrophils % Lymphocytes % Monocytes % Eosinophils % Basophils % Nucleated RBC % PT with INR INR Hemoglobin A1c % Uric Acid 5.8 Phosphorus 2.6 Magnesium 2.0 Creatine Kinase 332 H 216 Creatine Kinase Index 0.6 0.5 CK-MB (CK-2) 2.2 1.1 Troponin I < 0.02 CXR: without acute abnormalities EKG: NSR, rate 90bpm, qtc 457ms. with new deep TWI in v3 compared to previous from 08/2018 ECHO Interpretation Summary There is trace mitral regurgitation. The left ventricular size, thickness and function are normal The left ventricular ejection fraction is normal. Left Ventricular Filling pattern is normal for age. The left ventricular wall motion is normal. There is trace tricuspid regurgitation. Right ventricular systolic pressure is normal. HOSPITAL COURSE: Date of Admission:10/31/18 Date of Discharge: 10/31/18 48 y/o homeless M with PMH depression, cocaine abuse, alcohol abuse, chronic L shoulder pain, presents with Left shoulder pain, recommended for admission due to ECG abnormality. Denies chest pain. Ad[facility] for Non-specific EKG changes, concern for wellen syndrome. cardio consult Dr. Richardson. s/p asax1. EKG new deep TWI v3 compared to 09/08 , however asymptomatic. without chest pain. trops neg x2. ECHO nl, stress test nl. Urine toxicology negative. A1c 4.6, lipid profile: HDL 99, no need for statin low ASCVD score. #alcohol withdrawal - pt refusing [facility] or detox here -current CIWA 0-2 -s/p banana bag -s/p thiamine, folic -librium protocol, did not complete...AMA #L shoulder pain, R foot pain - Etiology unclear, no clear history of trauma. per pt has been to multiple hospitals, in [place] they gave him steroid shot which helped. - XR imaging (L shoulder, R foot) - no acute frx. +arthritic changes -Uric Acid level 5.8 -pain ctl: motrin/tylenol -ortho consulted for L shoulder steroid shot....did not get bec left AMA pt informed of risks of leaving AMA including worsening condition and . Pt left AMA Minutes to complete discharge: 38 Discharge Summary Reason For Visit: ALCOHOL DEPEND W COMPL WITHDRWAL,ACUTE Current Active Problems Acute electrocardiogram changes (Acute) Alcohol intoxication (Acute) Condition: Stable - Instructions Diet, Activity, Other Instructions: you came in for L shoulder pain, alcohol detox, and were found to have some electrical changes in your heart on your EKG.your ultrasound of the heart and stress test were both normal. you did not have a heart attack. we gave you meds for to help you detox and pain meds for your shoulder. you had xrays done of your shoulder and right foot and there was no evidence of fractures. we offered you to detox here or in [facility] and you refused. you wanted to leave against medical advice. risks of leaving including and worsening of condition were explained and you were aware of this. Please resume your home meds Please enroll yourself into a detox program. please avoid alcohol. If you continue to drink however please do not abruptly stop as this can worsen your withdrawal. please follow up with your primary care physician about or have your primary care physician refer you to a pain specialist or orthopedist to help with your shoulder pain please follow up with your primary care physician within 1 week please follow up with jewelry facer Dr. Richardson within 1 week if you experience any chest pain, shortness of breath, passing out, dizzy, hallucinations, sweats, confusion, please go to ER or call 911 Referrals: Bright Richardson MD [Staff Physician] - 1 Week Nancy Santa [Primary Care Provider] - 1 Week Disposition: AGAINST MEDICAL ADVICE - Home Medications Comprehensive Discharge Medication List: Ambulatory Orders NK [No Known Home Medication] 06/21/18 This patient is new to me today: Yes Date on this admission: 10/31/18 Emergency Visit: Yes ED Registration Date: 10/31/18 Care time: The patient presented to the Emergency Department on the above date and was hospitalized for further evaluation of their emergent condition. Critical Care patient: No - Discharge Referral Referred to [facility] Med [facility] No
[2018-10-31 20:49] VITALS: BP 138/75; PULSE 80; TEMP 98
[2018-11-01] MEDS ORDERED: chlordiazePOXIDE 5 MG CAPSULE PO PRN (13:00)
[2018-11-01] MEDS ORDERED: chlordiazePOXIDE 5 MG CAPSULE PO SCH (15:00)
--- NOTE | 2018-11-03 18:12 | EKG ---
Test Reason : Blood Pressure : / mmHG Vent. Rate : 090 BPM Atrial Rate : 090 BPM P-R Int : 140 ms QRS Dur : 092 ms QT Int : 374 ms P-R-T Axes : 049 039 041 degrees QTc Int : 457 ms NORMAL SINUS RHYTHM NONSPECIFIC T WAVE ABNORMALITY ABNORMAL ECG WHEN COMPARED WITH ECG OF 28-AUG-2018 14:57, NO SIGNIFICANT CHANGE WAS FOUND Confirmed by MD MILY, BOWEN ([id number]) on 11/03/2018 6:11:58 PM Referred By: Confirmed By:BOWEN MINOR MD
== END 2018-10-31 17:53 | disposition left against medical advice (07) | DRG 770 ==
LOC: JER 10:42 → JERBED 12:51 → J4W 15:12 → OBSVTOIN 10-31 16:32
PROC: HZ2ZZZZ Detoxification Services for Substance Abuse Treatment (ICD-10-PCS; principal; 2018-10-30)
DX: F10.230 Alcohol dependence with withdrawal, uncomplicated (principal); Y90.1 Blood alcohol level of 20-39 mg/100 ml; F32.9 Major depressive disorder, single episode, unspecified; F14.20 Cocaine dependence, uncomplicated; M25.512 Pain in left shoulder; R55 Syncope and collapse; R94.31 Abnormal electrocardiogram [ECG] [EKG]; R63.4 Abnormal weight loss; Z68.23 Body mass index [BMI] 23.0-23.9, adult; H26.9 Unspecified cataract; Z59.0 Homelessness; M25.571 Pain in right ankle and joints of right foot
CPT/HCPCS: 36415; 71045-TC-FY; 73030-TC-LT-FY; 73610-TC-RT-FY; 73630-TC-RT-FY; 80053; 80061; 80307; 81003; 82550; 82553; 83036; 83690; 83721; 83735; 84100; 84484; 84550; 85025; 85610; 93005; 93010; 93017; 93018; 93306-TC; 97116-GP; 97161-GP; 99284-25; G0378; J7030

== ENCOUNTER 2018-11-08 08:47 | Inpatient (IN) | payer OTHER ==
[2018-11-08 09:13] VITALS: BMI 20.7
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
[2018-11-08] MEDS ORDERED: NICOTINE POLACRILEX 2 MG GUM BUC PRN (11:28)
[2018-11-08] MEDS ORDERED: ACETAMINOPHEN 325 MG TABLET (FP) PO PRN ×2 (11:28)
[2018-11-08] MEDS ORDERED: IBUPROFEN 400 MG TABLET (FP) PO PRN (11:28)
[2018-11-08] MEDS ORDERED: chlordiazePOXIDE HCL 10 MG CAPSULE PO PRN (11:28)
[2018-11-08] MEDS ORDERED: MELATONIN 5 MG TABLETS PO PRN (11:28)
[2018-11-08] MEDS ORDERED: MENTHOL/PHENOL 1 EACH UD MM PRN (11:28)
[2018-11-08] MEDS ORDERED: BISMUTH SUBSALICYLATE 524 MG/30 ML UD PO PRN (11:28)
[2018-11-08] MEDS ORDERED: MAGNESIUM CITRATE 300 ML BOTTLE PO PRN (11:28)
[2018-11-08] MEDS ORDERED: MAGNESIUM HYDROX 2400MG/30ML ORAL SUSPENSION 30 ML CUP PO PRN (11:28)
[2018-11-08] MEDS ORDERED: MAG HYDROX/AL HYDROX/SIMETH 30 ML UNIT-DOSE CUP PO PRN (11:28)
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
--- NOTE | 2018-11-08 13:14 | PN ---
S Progress Note Note: patient stated playing basketball,injury to right ankle 2days ago,tenderness in lateral aspect of right ankle,ambulate with pain will do xray right ankle on Mon11/09/18 at 14.00 sprain of right ankle a/o fracture
[2018-11-08] MEDS: chlordiazePOXIDE HCL 25 MG CAPSULE PO SCH ×2 (15:02→22:40)
[2018-11-08] MEDS: THIAMINE HCL 100 MG TABLET (FP) PO SCH (22:40)
[2018-11-09] MEDS: chlordiazePOXIDE HCL 25 MG CAPSULE PO SCH (05:44)
[2018-11-09] MEDS ORDERED: PRENATAL VITAMINS W/ FOLIC ACID TABLET (FP) PO SCH (10:00)
[2018-11-09 11:22] LABS: HEMATOCRIT 39.8 % (35.4-49); HEMOGLOBIN 13.4 GM/dL (11.7-16.9); MCH 29.4 pg (25.7-33.7); MCHC 33.6 g/dl (32.0-35.9); MEAN CELL VOLUME 87.5 fl (80-96); MEAN PLT VOLUME 7.3 fl (7.5-11.1); PLATELET COUNT 234 K/MM3 (134-434); RBC 4.55 M/mm3 (4.00-5.60); RDW 14.4 % (11.9-15.9); WHITE BLOOD COUNT 4.9 K/mm3 (4.0-10.0)
[2018-11-09 11:53] LABS: ALBUMIN 3.4 g/dl (3.4-5.0); ALK PHOS 83 U/L (45-117); ANION GAP 4 MMOL/L (8-16); BILIRUBIN,TOTAL 0.8 mg/dL (0.2-1); BLOOD UREA NITROGEN 10 mg/dL (7-18); CALCIUM 8.6 mg/dL (8.5-10.1); CHLORIDE 104 mmol/L (98-107); CO2 30 mmol/L (21-32); CREATININE 0.7 mg/dL (0.55-1.3); GLUCOSE,RANDOM 84 mg/dL (74-106); SGOT/AST 28 U/L (15-37); SGPT/ALT 31 U/L (13-61); SODIUM 138 mmol/L (136-145); TOT PROT 6.6 g/dl (6.4-8.2)
[2018-11-09] MEDS: chlordiazePOXIDE 5 MG CAPSULE PO SCH ×2 (14:03→21:07)
--- NOTE | 2018-11-09 14:17 | PN ---
S CIWA - CIWA Score Nausea/Vomitin Muscle Tremors: 2 Anxiety: 2 Agitation: 2 Paroxysmal Sweats: 1-Minimal Palms Moist Orientation: 0-Oriented Tacttile Disturbances: 1-Very Mild Itch/Numbness Auditory Disturbances: 1-Very Mild Visual Disturbances: 0-None Headache: 2-Mild CIWA-Ar Total Score: 13 [facility] Progress Note (SOAP) Subjective: alert,irritable,anxious,interrupted sleep,tremor,pain in right ankle is less Objective: 11/09/18 14:16 Vital Signs Temperature 98.2 F 11/09/18 13:49 Pulse Rate 85 11/09/18 13:49 Respiratory Rate 18 11/09/18 13:49 Blood Pressure 141/92 11/09/18 13:49 O2 Sat by Pulse Oximetry (%) 11/09/18 14:16 Laboratory Last Values WBC 4.9 K/mm3 (4.0-10.0) 11/09/18 07:00 RBC 4.55 M/mm3 (4.00-5.60) 11/09/18 07:00 Hgb 13.4 GM/dL (11.7-16.9) 11/09/18 07:00 Hct 39.8 % (35.4-49) 11/09/18 07:00 MCV 87.5 fl (80-96) 11/09/18 07:00 MCH 29.4 pg (25.7-33.7) 11/09/18 07:00 MCHC 33.6 g/dl (32.0-35.9) 11/09/18 07:00 RDW 14.4 % (11.9-15.9) 11/09/18 07:00 Plt Count 234 K/MM3 (134-434) D 11/09/18 07:00 MPV 7.3 fl (7.5-11.1) L 11/09/18 07:00 Sodium 138 mmol/L (136-145) 11/09/18 07:00 Potassium 4.0 mmol/L (3.5-5.1) 11/09/18 07:00 Chloride 104 mmol/L (98-107) 11/09/18 07:00 Carbon Dioxide 30 mmol/L (21-32) 11/09/18 07:00 Anion Gap 4 MMOL/L (8-16) L 11/09/18 07:00 BUN 10 mg/dL (7-18) 11/09/18 07:00 Creatinine 0.7 mg/dL (0.55-1.3) 11/09/18 07:00 Creat Clearance w eGFR 121.41 (>60) 11/09/18 07:00 Random Glucose 84 mg/dL (74-106) 11/09/18 07:00 Calcium 8.6 mg/dL (8.5-10.1) 11/09/18 07:00 Total Bilirubin 0.8 mg/dL (0.2-1) 11/09/18 07:00 AST 28 U/L (15-37) 11/09/18 07:00 ALT 31 U/L (13-61) 11/09/18 07:00 Alkaline Phosphatase 83 U/L (45-117) 11/09/18 07:00 Total Protein 6.6 g/dl (6.4-8.2) 11/09/18 07:00 Albumin 3.4 g/dl (3.4-5.0) 11/09/18 07:00 RPR Titer Nonreactive (NONREACTIVE) 11/09/18 07:00 Assessment: 11/09/18 14:17 withdrawal symptom Plan: continue detox,xray of right ankle today
[2018-11-09] MEDS: THIAMINE HCL 100 MG TABLET (FP) PO SCH (22:24)
[2018-11-10] MEDS: chlordiazePOXIDE 5 MG CAPSULE PO SCH (06:41)
[2018-11-10 09:34] VITALS: BP 126/67; PULSE 70; TEMP 98.4
[2018-11-10] MEDS ORDERED: chlordiazePOXIDE HCL 10 MG CAPSULE PO SCH (13:00)
[2018-11-10] MEDS ORDERED: chlordiazePOXIDE HCL 10 MG CAPSULE PO PRN (13:00)
--- NOTE | 2018-11-10 15:46 | PN ---
[facility] Progress Note Note: pt requesting to leave the unit, states he wants to leave AMA. Encouraged pt to stay one more day to complete detox but he declines stating "I Have to go, I will sign AMA". pt was A & O x 3 gait was steady other than being agitated, pt was in no acutre distress. Will be discharged AMA Vital Signs Temperature 98.4 F 11/10/18 09:33 Pulse Rate 70 11/10/18 09:33 Respiratory Rate 18 11/10/18 09:33 Blood Pressure 126/67 11/10/18 09:33 O2 Sat by Pulse Oximetry (%)
--- NOTE | 2018-11-10 15:46 | DS ---
[facility] Detox Discharge Summary Admission Date: 11/08/18 Discharge Date: 11/10/18 - History Additional Comments: pls see progress note - Physical Exam Results Vital Signs: Vital Signs Temperature 98.4 F 11/10/18 09:33 Pulse Rate 70 11/10/18 09:33 Respiratory Rate 18 11/10/18 09:33 Blood Pressure 126/67 11/10/18 09:33 O2 Sat by Pulse Oximetry (%) - Medication Discharge Medications: Ambulatory Orders NK [No Known Home Medication] 06/21/18 - AMA Did Patient Leave Against Medical Advice: Yes
== END 2018-11-10 10:51 | disposition left against medical advice (07) | DRG 770 ==
LOC: YASAS 08:47 → Y6N 12:01
PROVIDERS: ADMIT Surgery; ATTEND Surgery
PROC: HZ2ZZZZ Detoxification Services for Substance Abuse Treatment (ICD-10-PCS; principal; 2018-11-08)
DX: F10.230 Alcohol dependence with withdrawal, uncomplicated (principal); F14.10 Cocaine abuse, uncomplicated; F10.24 Alcohol dependence with alcohol-induced mood disorder; R60.0 Localized edema; R21 Rash and other nonspecific skin eruption; S99.811A Other specified injuries of right ankle, initial encounter; S93.491A Sprain of other ligament of right ankle, initial encounter; X50.1XXA Overexertion from prolonged static or awkward postures, initial encounter; Y93.67 Activity, basketball; Y92.310 Basketball court as the place of occurrence of the external cause; Y99.8 Other external cause status; Z59.0 Homelessness
CPT/HCPCS: 36415; 73610-TC-RT-FY; 80053; 85027; 86593

== ENCOUNTER 2018-11-15 06:12 | Emergency (ER) | payer OTHER ==
--- NOTE | 2018-11-15 07:19 | PDOC ---
History of Present Illness - General Chief Complaint: Cold Symptoms Stated Complaint: FEVER Time Seen by Provider: 11/15/18 07:15 - History of Present Illness Initial Comments: 11/15/18 07:50 Pt presents to the ED complaining of generalized malaise and lightheadness that started yesterday. Denies fevers, nausea and vomiting, chest or abdominal pain. Denies cough or shortness of breath. History of chronic alcoholism, recently admitted to [facility] for detox, but states that he resumed drinking on discharge and that he was drinking heavily last night. He is asking for referral to a new detox program. Also complains of L shoulder pain which seems to be chronic. Negative shoulder xray at [facility]. Past History - Past Medical History Allergies/Adverse Reactions: Allergies Allergy/AdvReac Type Severity Reaction Status Date / Time No Known Allergies Allergy Verified 11/15/18 06:50 Home Medications: Ambulatory Orders NK [No Known Home Medication] 06/21/18 Anemia: No Asthma: No Cancer: No Cardiac Disorders: No CVA: No COPD: No CHF: No Dementia: No Diabetes: No GI Disorders: No Disorders: No HTN: No Hypercholesterolemia: No Kidney Stones: No Liver Disease: No Seizures: No Thyroid Disease: No - Surgical History Abdominal Surgery: No Appendectomy: No Cardiac Surgery: No Cholecystectomy: No Lung Surgery: No Neurologic Surgery: No Orthopedic Surgery: No - Reproductive History Testicular Surgery: No - Immunization History Immunization Up to Date: Yes - Suicide/Smoking/Psychosocial Hx Smoking History: Never smoked Have you smoked in the past 12 months: No Information on smoking cessation initiated: No 'Breaking Loose' booklet given: 07/09/18 Hx Alcohol Use: No Drug/Substance Use Hx: No Substance Use Type: Alcohol Hx Substance Use Treatment: Yes Review of Systems - Review of Systems Able to Perform ROS?: Yes Is the patient limited Armenian proficient: Yes Constitutional: Yes: Malaise. No: Symptoms Reported, See HPI, Chills, Diaphoresis, Fever, Loss of Appetite, Night Sweats, Weakness, Weight Stable, Unintentional Wgt. Loss, Unexplained wgt Loss, Other HEENTM: No: Symptoms Reported, See HPI, Eye Pain, Blurred Vision, Tearing, Recent change in vision, Double Vision, Cataracts, Ear Pain, Ocular Prothesis, Ear Discharge, Nose Pain, Nose Congestion, Tinnitus, Nose Bleeding, Hearing Loss , Throat Pain, Throat Swelling, Mouth Pain, Dental Problems, Difficulty Swallowing, Mouth Swelling, Other Respiratory: No: Symptoms reported, See HPI, Cough, Orthopnea, Shortness of Breath, SOB with Exertion, SOB at Rest, Stridor, Wheezing, Productive cough, Hemoptysis, Other Cardiac (ROS): No: Symptoms Reported, See HPI, Chest Pain, Edema, Irregular Heart Rate, Lightheadedness, Palpitations, Syncope, Chest Tightness, Other ABD/GI: No: Symptoms Reported, See HPI, Abdominal Distended, Abd. Pain w/ defecation, Blood Streaked Bowels, Constipated, Diarrhea, Difficulty Swallowing , Nausea, Poor Appetite, Poor Fluid Intake, Rectal Bleeding, Vomiting, Indigestion, Abdominal cramping, Tarry Stools, Other : No: Symptoms Reported, See HPI, Burning, Dysuria, Discharge, Frequency, Flank Pain, Hematuria, Incontinence, Pain, Urgency, Testicular Mass, Testicular Swelling, Lesions, Testicular Pain, Other Musculoskeletal: No: Symptoms Reported, See HPI, Back Pain, Gout, Joint Pain, Joint Swelling, Muscle Pain, Muscle Weakness, Neck Pain, Joint Stiffness, Other Integumentary: No: Symptoms Reported, See HPI, Bruising, Change in Color, Change in Hair/Nails, Dryness, Erythema, Flushing, Lesions, Lumps, Pallor, Pruritus, Rash, Sweating, Other Neurological: Yes: Dizziness. No: Symptoms reported, See HPI, Headache, Numbness, Paresthesia, Pre-Existing Deficit, Seizure, Tingling, Tremors, Weakness, Unsteady Gait, Ataxia, Other Psychiatric: No: Anxiety, Depression, Frequent Crying, Stressors, Sleep Pattern Change, Emotional Problems, Mood Swings, Change in Appetite, Other Endocrine: No: Symptoms Reported, See HPI, Excessive Sweating, Flushing, Intolerance to Cold, Intolerance to Heat, Increased Hunger, Increased Thirst, Increased Urine, Unexplained Weight Gain, Unexplained Weight Loss, Change in Weight, Other Hematologic/Lymphatic: No: Symptoms Reported, See HPI, Anemia, Blood Clots, Easy Bleeding, Easy Bruising, Bleeding Diathesis, Lymph Node Abnormalities, Swollen Glands, Other *Physical Exam - Vital Signs Last Vital Signs Temp Pulse Resp BP Pulse Ox 99.1 F 77 18 126/91 99 11/15/18 06:50 11/15/18 06:50 11/15/18 06:50 11/15/18 06:50 11/15/18 06:50 - Physical Exam General Appearance: Yes: Nourished, Appropriately Dressed HEENT: positive: EOMI, Normal Voice Neck: positive: Supple Respiratory/Chest: positive: Lungs Clear, Normal Breath Sounds Cardiovascular: positive: Regular Rhythm, Regular Rate, S1, S2 Gastrointestinal/Abdominal: positive: Flat, Soft. 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 Differential diagnosis includes dehydration, viral syndrome, less likely alcoholic ketoacidosis. Will check labs and give IV hydration, likely discharge home if labs are negative. *DC/Admit/Observation/Transfer Diagnosis at time of Disposition: Malaise and fatigue - Discharge Dispostion Disposition: HOME Condition at time of disposition: Good Decision to Admit order: No - Referrals Referrals: Nancy Santa [Primary Care Provider] - - Patient Instructions Printed Discharge Instructions: DI for Fatigue Additional Instructions: you came to the ED because you were not feeling well, but all of the tests we did in the ED were normal. return to the ED for fever, nausea and vomiting, severe chest or abdominal pain, other new or worsening symptoms - Post Discharge Activity
[2018-11-15 07:28] VITALS: BP 126/91; PULSE 77; TEMP 99.1; BMI 22.1
[2018-11-15] MEDS ORDERED: SODIUM CHLORIDE 0.9% 500 ML INFUS.BAG IV ONE (07:28)
[2018-11-15] MEDS ORDERED: IBUPROFEN 600 MG TABLET (FP) PO ONE ×2 (07:31→08:19)
[2018-11-15 08:17] LABS: BASO % 0.5 % (0-2.0); EOS % 1.4 % (0-4.5); HEMATOCRIT 36.5 % (35.4-49); HEMOGLOBIN 11.9 GM/dL (11.7-16.9); LYMPH % 24.9 % (8-40); MCH 27.9 pg (25.7-33.7); MCHC 32.6 g/dl (32.0-35.9); MEAN CELL VOLUME 85.7 fl (80-96); MONO % 9.3 % (3.8-10.2); NEUT % 63.9 % (42.8-82.8); PLATELET COUNT 234 K/MM3 (134-434); RBC 4.26 M/mm3 (4.00-5.60); RDW 14.2 % (11.9-15.9); WHITE BLOOD COUNT 5.1 K/mm3 (4.0-10.0)
[2018-11-15 08:50] LABS: ALBUMIN 3.5 g/dl (3.4-5.0); ALK PHOS 83 U/L (45-117); ANION GAP 7 MMOL/L (8-16); BILIRUBIN,TOTAL 0.6 mg/dL (0.2-1); BLOOD UREA NITROGEN 14 mg/dL (7-18); CALCIUM 7.9 mg/dL (8.5-10.1); CHLORIDE 102 mmol/L (98-107); CO2 28 mmol/L (21-32); CREATININE 0.9 mg/dL (0.55-1.3); GLUCOSE,RANDOM 98 mg/dL (74-106); SGOT/AST 34 U/L (15-37); SGPT/ALT 30 U/L (13-61); SODIUM 137 mmol/L (136-145); TOT PROT 6.7 g/dl (6.4-8.2)
== END 2018-11-15 12:30 | disposition home or self-care (01) ==
LOC: JER 06:12
PROC: 3E0337Z Introduction of Electrolytic and Water Balance Substance into Peripheral Vein, Percutaneous Approach (ICD-10-PCS; principal; 2018-11-15)
DX: R53.81 Other malaise (principal)
CPT/HCPCS: 36415; 80053; 80307; 85025; 99284-25

== ENCOUNTER 2018-12-08 08:01 | Inpatient (IN) | payer OTHER ==
[2018-12-08 08:40] VITALS: BMI 23.3
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
[2018-12-08] MEDS ORDERED: MELATONIN 5 MG TABLETS PO PRN (09:24)
[2018-12-08] MEDS ORDERED: METHOCARBAMOL 500 MG TABLET PO PRN (09:24)
[2018-12-08] MEDS ORDERED: MAGNESIUM HYDROX 2400MG/30ML ORAL SUSPENSION 30 ML CUP PO PRN (09:24)
[2018-12-08] MEDS ORDERED: ACETAMINOPHEN 325 MG TABLET (FP) PO PRN (09:24)
[2018-12-08] MEDS ORDERED: IBUPROFEN 400 MG TABLET (FP) PO PRN (09:24)
[2018-12-08] MEDS ORDERED: hydrOXYzine PAMOATE 25 MG CAPSULE (FP) PO PRN (09:24)
[2018-12-08] MEDS ORDERED: MENTHOL/PHENOL 1 EACH UD MM PRN (09:24)
[2018-12-08] MEDS ORDERED: MAG HYDROX/AL HYDROX/SIMETH 30 ML UNIT-DOSE CUP PO PRN (09:24)
[2018-12-08] MEDS ORDERED: BISMUTH SUBSALICYLATE 524 MG/30 ML UD PO PRN (09:24)
[2018-12-08] MEDS ORDERED: MAGNESIUM CITRATE 300 ML BOTTLE PO PRN (09:24)
[2018-12-08] MEDS ORDERED: chlordiazePOXIDE HCL 25 MG CAPSULE PO PRN (09:24)
[2018-12-08] MEDS: PRENATAL VITAMINS W/ FOLIC ACID TABLET (FP) PO SCH (12:09)
[2018-12-08 12:22] LABS: ALBUMIN 4.5 g/dl (3.4-5.0); ALK PHOS 87 U/L (45-117); ANION GAP 9 MMOL/L (8-16); BILIRUBIN,TOTAL 0.4 mg/dL (0.2-1); BLOOD UREA NITROGEN 9 mg/dL (7-18); CALCIUM 8.6 mg/dL (8.5-10.1); CHLORIDE 100 mmol/L (98-107); CO2 28 mmol/L (21-32); CREATININE 0.9 mg/dL (0.55-1.3); GLUCOSE,RANDOM 113 mg/dL (74-106); POTASSIUM 3.9 mmol/L (3.5-5.1); SGOT/AST 41 U/L (15-37); SGPT/ALT 38 U/L (13-61); SODIUM 137 mmol/L (136-145); TOT PROT 8.1 g/dl (6.4-8.2)
[2018-12-08 12:23] LABS: HEMATOCRIT 40.2 % (35.4-49); HEMOGLOBIN 13.1 GM/dL (11.7-16.9); MCH 28.1 pg (25.7-33.7); MCHC 32.6 g/dl (32.0-35.9); MEAN CELL VOLUME 86.1 fl (80-96); MEAN PLT VOLUME 7.4 fl (7.5-11.1); PLATELET COUNT 294 K/MM3 (134-434); RBC 4.67 M/mm3 (4.00-5.60); RDW 13.9 % (11.9-15.9); WHITE BLOOD COUNT 6.7 K/mm3 (4.0-10.0)
[2018-12-08] MEDS: chlordiazePOXIDE HCL 25 MG CAPSULE PO SCH ×2 (23:46→23:56)
[2018-12-08] MEDS: THIAMINE HCL 100 MG TABLET (FP) PO SCH (23:46)
[2018-12-09] MEDS: chlordiazePOXIDE HCL 25 MG CAPSULE PO SCH ×4 (06:05→23:15)
[2018-12-09] MEDS: PRENATAL VITAMINS W/ FOLIC ACID TABLET (FP) PO SCH (10:39)
--- NOTE | 2018-12-09 16:15 | PN ---
S CIWA - CIWA Score Nausea/Vomitin Muscle Tremors: 4-Moderate,w/Arms Extend Anxiety: 4-Mod. Anxious/Guarded Agitation: 4-Moderately Restless Paroxysmal Sweats: 3 Orientation: 0-Oriented Tacttile Disturbances: 0-None Auditory Disturbances: 0-None Visual Disturbances: 0-None Headache: 0-None Present CIWA-Ar Total Score: 17 [facility] Progress Note (SOAP) Subjective: Tremor, sweating, chills, left shoulder pain Objective: 12/09/18 16:14 Last Vital Signs Temp Pulse Resp BP Pulse Ox 98.1 F 70 18 129/78 12/09/18 14:30 12/09/18 14:30 12/09/18 14:30 12/09/18 14:30 Laboratory Tests 12/08/18 12/08/18 12/08/18 10:00 10:00 10:00 WBC 6.7 RBC 4.67 Hgb 13.1 Hct 40.2 MCV 86.1 MCH 28.1 MCHC 32.6 RDW 13.9 Plt Count 294 D MPV 7.4 L Sodium 137 Potassium 3.9 Chloride 100 Carbon Dioxide 28 Anion Gap 9 BUN 9 Creatinine 0.9 Creat Clearance w eGFR 90.84 Random Glucose 113 H Calcium 8.6 Total Bilirubin 0.4 AST 41 H ALT 38 Alkaline Phosphatase 87 Total Protein 8.1 Albumin 4.5 RPR Titer Nonreactive Labs reviewed Assessment: 12/09/18 16:15 Withdrawal symptoms Plan: Continue detox Encouraged PO water intake
[2018-12-09] MEDS: THIAMINE HCL 100 MG TABLET (FP) PO SCH (23:15)
[2018-12-10] MEDS: chlordiazePOXIDE HCL 25 MG CAPSULE PO SCH (05:47)
[2018-12-10 06:41] VITALS: BP 125/72; PULSE 55; TEMP 97.2
--- NOTE | 2018-12-10 13:03 | PN ---
[facility] Progress Note Note: PATIENT REQUESTED TO SIGN OUT AMA. PATIENT STATED HE HAD TO GO TO WORK AND THAT HIS HOUSING DEPENDED ON IT. PATIENT ENCOURAGED TO STAY IN TREATMENT BUT REFUSED. PATIENT IS MEDICALLY STABLE, DENIES WITHDRAWAL SX AND SI/HI. PATIENT STRONGLY GIVEN RISK FACTORS OF RELAPSE WITH SIGNING OUT AMA BUT CONTINUED WITH PROCESS. ENCOURAGED TO FOLLOW UP WITH PCP AND TO ATTEND GROUP MEETINGS TO PREVENT RELAPSE. Vital Signs Temperature 97.2 F L 12/10/18 06:00 Pulse Rate 55 L 12/10/18 06:00 Respiratory Rate 18 12/10/18 06:00 Blood Pressure 125/72 12/10/18 06:00 O2 Sat by Pulse Oximetry (%)
[2018-12-10] MEDS ORDERED: chlordiazePOXIDE HCL 10 MG CAPSULE PO PRN (17:00)
[2018-12-10] MEDS ORDERED: chlordiazePOXIDE HCL 10 MG CAPSULE PO SCH (17:00)
[2018-12-11] MEDS ORDERED: chlordiazePOXIDE HCL 10 MG CAPSULE PO SCH (17:00)
== END 2018-12-10 09:30 | disposition left against medical advice (07) | DRG 770 ==
LOC: YASAS 08:01 → Y6N 09:22
PROVIDERS: ADMIT Surgery; ATTEND Surgery
PROC: HZ2ZZZZ Detoxification Services for Substance Abuse Treatment (ICD-10-PCS; principal; 2018-12-08)
PROC: HZ2ZZZZ Detoxification Services for Substance Abuse Treatment (ICD-10-PCS; 2018-12-08)
DX: F10.230 Alcohol dependence with withdrawal, uncomplicated (principal); F14.20 Cocaine dependence, uncomplicated; F32.9 Major depressive disorder, single episode, unspecified; M25.512 Pain in left shoulder; G89.29 Other chronic pain; H26.1 Traumatic cataract; L85.3 Xerosis cutis; Z91.5 Personal history of self-harm; Z59.0 Homelessness
CPT/HCPCS: 36415; 80053; 85027; 86593

== ENCOUNTER 2018-12-10 20:40 | Emergency (ER) | payer OTHER ==
[2018-12-10 20:42] VITALS: BP 128/82; PULSE 72; TEMP 98.5; BMI 22.7
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
== END 2018-12-10 22:00 | disposition left against medical advice (07) ==
LOC: JER 20:40
DX: F10.120 Alcohol abuse with intoxication, uncomplicated (principal)
CPT/HCPCS: 99281-25

== ENCOUNTER 2018-12-12 15:03 | Emergency (ER) | payer OTHER ==
[2018-12-12 15:10] VITALS: BMI 23.5
--- NOTE | 2018-12-12 15:24 | PDOC ---
Rapid Medical Evaluation Chief Complaint: Alcohol intoxication Time Seen by Provider: 12/12/18 15:23 Medical Evaluation: Allergies Allergy/AdvReac Type Severity Reaction Status Date / Time No Known Allergies Allergy Verified 12/10/18 20:43 Vital Signs Temp Pulse Resp BP Pulse Ox 97.8 F 88 18 115/71 98 12/12/18 15:06 12/12/18 15:06 12/12/18 15:06 12/12/18 15:06 12/12/18 15:06 12/12/18 15:23 I have performed a brief in-person evaluation of this patient. The patient presents with a chief complaint of: chest pain Pertinent physical exam findings: refusing PE. +AOB. I have ordered the following: ekg The patient will proceed to the ED for further evaluation. Discharge Disposition - Diagnosis Acute alcohol intoxication, Chest pain - Referrals - Patient Instructions - Post Discharge Activity
--- NOTE | 2018-12-12 16:24 | PDOC ---
History of Present Illness - General Chief Complaint: Alcohol intoxication Stated Complaint: HYPERTENSION Time Seen by Provider: 12/12/18 15:23 - History of Present Illness Initial Comments: 48 year old male with PMH of presentation with acute EtOH intoxication presenting intoxicated and complaining of chest pain in triage but not on my exam. He was actually complaining only of thirst. States he drank a pint of vodka an hour ago. Denied any fevers, nausea, vomiting, diarrhea, chest pain, abdominal pain, SOB, or other symptoms. 12/12/18 16:44 Past History - Past Medical History Allergies/Adverse Reactions: Allergies Allergy/AdvReac Type Severity Reaction Status Date / Time No Known Allergies Allergy Verified 12/10/18 20:43 Home Medications: Ambulatory Orders Unobtainable 12/12/18 Anemia: No Asthma: No Cancer: No Cardiac Disorders: No CVA: No COPD: No CHF: No Dementia: No Diabetes: No GI Disorders: No Disorders: No HTN: No Hypercholesterolemia: No Kidney Stones: No Liver Disease: No Seizures: No Thyroid Disease: No - Surgical History Abdominal Surgery: No Appendectomy: No Cardiac Surgery: No Cholecystectomy: No Lung Surgery: No Neurologic Surgery: No Orthopedic Surgery: No - Reproductive History Testicular Surgery: No - Immunization History Immunization Up to Date: Yes - Suicide/Smoking/Psychosocial Hx Smoking History: Never smoked Have you smoked in the past 12 months: No 'Breaking Loose' booklet given: 11/22/18 Hx Alcohol Use: Yes Drug/Substance Use Hx: Yes Substance Use Type: Alcohol, Cocaine Hx Substance Use Treatment: Yes Review of Systems - Review of Systems Constitutional: No: Chills, Diaphoresis, Fever HEENTM: No: Blurred Vision, Tearing Respiratory: No: Orthopnea, Shortness of Breath, Wheezing Cardiac (ROS): No: Chest Pain, Irregular Heart Rate ABD/GI: Yes: Poor Appetite, Poor Fluid Intake. No: Constipated, Diarrhea, Nausea, Vomiting : No: Dysuria, Discharge Musculoskeletal: No: Back Pain, Joint Pain Integumentary: No: Bruising, Change in Color, Erythema, Flushing Neurological: No: Headache, Numbness, Paresthesia Psychiatric: No: Anxiety, Depression Hematologic/Lymphatic: No: Anemia, Blood Clots, Easy Bleeding *Physical Exam - Vital Signs Last Vital Signs Temp Pulse Resp BP Pulse Ox 97.8 F 88 18 115/71 98 12/12/18 15:06 12/12/18 15:06 12/12/18 15:06 12/12/18 15:06 12/12/18 15:06 - Physical Exam General Appearance: Yes: Nourished, Appropriately Dressed. No: Apparent Distress HEENT: positive: EOMI, CECELIA, Normal ENT Inspection, Normal Voice, Other ( indented scar on his chin that is well healed.) Neck: positive: Trachea midline, Normal Thyroid, Supple. negative: Tender, Rigid Respiratory/Chest: positive: Lungs Clear, Normal Breath Sounds. negative: Chest Tender, Respiratory Distress, Accessory Muscle Use Cardiovascular: positive: Regular Rhythm, Regular Rate Gastrointestinal/Abdominal: positive: Normal Bowel Sounds, Flat, Soft. negative : Tender Lymphatic: negative: Adenopathy, Tenderness Musculoskeletal: positive: Normal Inspection. negative: Decreased Range of Motion Extremity: positive: Normal Capillary Refill, Normal Inspection, Normal Range of Motion. negative: Tender Integumentary: positive: Normal Color, Dry, Warm Neurologic: positive: Fully Oriented, Alert, Normal Mood/Affect, Normal Response , Motor Strength 5/5, Other (intoxicated) ED Treatment Course - LABORATORY CBC & Chemistry Diagram: 12/12/18 21:46 Medical Decision Making - Medical Decision Making 48 year who represented intoxicated then subsequently sobered up 6 hours later and complained of "dizziness" and felt unsteady while ambulating. States that he has had this issue before and was seen at [facility] and the [place] for the same issue. He has multiple presentations to our ED for intoxication. He also states that he has no where to go and lives at a nursing home. CT head and labs pending on sign out to Dr. Pryor. 12/12/18 22:32 *DC/Admit/Observation/Transfer Diagnosis at time of Disposition: Acute alcohol intoxication, Chest pain - Referrals Referrals: Nancy Santa [Primary Care Provider] - - Patient Instructions - Post Discharge Activity
--- NOTE | 2018-12-12 18:24 | PDOC ---
Documentation entered by Melissa Louis SCRIBE, acting as scribe for Ena Martinez MD. Ena Martinez MD: This documentation has been prepared by the Missy zuñiga Amanda, SCRIBE, under my direction and personally reviewed by me in its entirety. I confirm that the documentation accurately reflects all work, treatment, procedures, and medical decision making performed by me. Attending Attestation - Resident Resident Name: Mary White - ED Attending Attestation I have performed the following: I have examined & evaluated the patient, The case was reviewed & discussed with the resident, I agree w/resident's findings & plan - HPI HPI: 12/12/18 17:39 Mr Pedraza is a 48 yo M who reports no significant past medical history He presents to the ER, reported chest pain in E area To Dr White and his nurse he denies chest pain On my assessment, pt is somnolent and does not report chest pain He did tell Dr White that he ingested 1 L vodka prior to arrival to the ER (he left detox 2 days ago) He denies any fevers, nausea, vomiting, diarrhea, chest pain, abdominal pain, SOB, or other symptoms. - Physicial Exam PE: 12/12/18 18:22 GENERAL: The patient is in no acute distress, somnolent ENT: Ears normal, nares patent, oropharynx clear without exudates. Moist mucous membranes. NECK: Normal range of motion LUNGS: Breath sounds equal, clear to auscultation bilaterally. HEART:Regular rate and rhythm, normal S1 and S2 without murmur, rub or gallop. ABDOMEN: Soft, nontender EXTREMITIES: Normal range of motion NEUROLOGICAL: Cranial nerves II through XII grossly intact. Normal speech. No focal neurological deficits. SKIN: well healed chin scar - Medical Decision Making 12/12/18 18:24 Will allow pt to metabolize alcohol and re assess Pt denies any other drug use 12/12/18 18:30 Pt awoke requesting a sandwich Signed out to Dr Hackett
[2018-12-12 22:24] LABS: BASO % 0.9 % (0-2.0); EOS % 4.2 % (0-4.5); HEMATOCRIT 42.1 % (35.4-49); HEMOGLOBIN 13.8 GM/dL (11.7-16.9); LYMPH % 46.4 % (8-40); MCH 28.6 pg (25.7-33.7); MCHC 32.8 g/dl (32.0-35.9); MEAN CELL VOLUME 87.3 fl (80-96); MEAN PLT VOLUME 7.2 fl (7.5-11.1); MONO % 6.5 % (3.8-10.2); PLATELET COUNT 257 K/MM3 (134-434); RBC 4.82 M/mm3 (4.00-5.60); RDW 13.9 % (11.9-15.9); WHITE BLOOD COUNT 4.5 K/mm3 (4.0-10.0)
--- NOTE | 2018-12-12 22:50 | PDOC ---
*Physical Exam - Vital Signs Last Vital Signs Temp Pulse Resp BP Pulse Ox 97.9 F 76 16 115/71 100 12/12/18 21:29 12/12/18 21:29 12/12/18 21:29 12/12/18 21:29 12/12/18 21:29 ED Treatment Course - LABORATORY CBC & Chemistry Diagram: 12/12/18 21:46 12/12/18 23:00 - ADDITIONAL ORDERS Additional order review: 12/12/18 21:46 RBC 4.82 MCV 87.3 MCHC 32.8 RDW 13.9 MPV 7.2 L Neutrophils % 42.0 L D Lymphocytes % 46.4 H D Monocytes % 6.5 Eosinophils % 4.2 D Basophils % 0.9 Medical Decision Making - Medical Decision Making Pt was signed out to me by resident Dr. White, who explained the presentation, ED course, any pending results, and needed interventions. Pending results include CT head and labs. Pt is currently stable and is in CT. 12/12/18 22:49 CBC WNL. 12/12/18 22:50 CMP and cardiac labs WNL. Pt still refuses to walk, stating continued vertigo. Providing banana bag, 10 mg IV reglan, 25 mg PO meclizine. Paging hospitalist team for admission for further work-up. 12/13/18 01:23 Pt was attempting to elope from ED with IV in, no longer complaining of vertigo after interventions. Informed pt that he cannot elope while clinically intoxicated. Sent repeat alcohol level, which was 107 at 2:00am. If pt is clinically sober and vertigo has improved, he can be discharged to home. 12/13/18 03:50 Pt is sober and able to stand (speaking in full sentences, A/O x3, no nystagmus or slurred speech). Pt signed out AMA using interpretor ([id number]). 12/13/18 04:25 *DC/Admit/Observation/Transfer Diagnosis at time of Disposition: Vertigo Acute alcohol intoxication Qualifiers: Complication of substance-induced condition: with unspecified complication Qualified Code(s): F10.929 - Alcohol use, unspecified with intoxication, unspecified Chest pain Qualifiers: Chest pain type: unspecified Qualified Code(s): R07.9 - Chest pain, unspecified - Discharge Dispostion Disposition: AGAINST MEDICAL ADVICE Condition at time of disposition: Improved Decision to Admit order: No - Referrals Referrals: Nancy Santa [Primary Care Provider] - - Patient Instructions Printed Discharge Instructions: DI for Alcohol Abuse Additional Instructions: You were seen in the ER today for alcohol intoxication. The results of your labs and imaging today were normal. Please follow-up with your primary care doctor within 1-2 days to discuss your visit and make sure your symptoms have improved. Please return to the ER if you have any worsening pain, development of fevers or chills, loss of consciousness, inability to tolerate food or fluids , or any other concerns. Please refrain from drinking alcohol, or present to detox facility for treatment. - Post Discharge Activity
[2018-12-12 23:34] LABS: INR 0.97 (0.83-1.09); PROTHROMBIN TIME (PATIENT) 11.4 SEC (9.7-13.0)
[2018-12-12 23:41] LABS: ALK PHOS 83 U/L (45-117); ANION GAP 11 MMOL/L (8-16); BILIRUBIN,TOTAL 0.5 mg/dL (0.2-1); BLOOD UREA NITROGEN 8 mg/dL (7-18); CALCIUM 8.5 mg/dL (8.5-10.1); CHLORIDE 102 mmol/L (98-107); CO2 23 mmol/L (21-32); CREATININE 0.9 mg/dL (0.55-1.3); GLUCOSE,RANDOM 103 mg/dL (74-106); POTASSIUM 4.2 mmol/L (3.5-5.1); SGOT/AST 29 U/L (15-37); SGPT/ALT 30 U/L (13-61); SODIUM 136 mmol/L (136-145); TOT PROT 7.8 g/dl (6.4-8.2)
[2018-12-13] MEDS ORDERED: METOCLOPRAMIDE HCL INJECTION 10 MG/2 ML VIAL IVPUSH ONE (00:54)
[2018-12-13] MEDS ORDERED: SODIUM CHLORIDE 1,000 ML IV STA (00:57)
[2018-12-13] MEDS ORDERED: MECLIZINE HCL 25 MG TABLET (FP) PO ONE (01:03)
[2018-12-13] MEDS ORDERED: FOLIC ACID INJECTION - 1 MG, THIAMINE HCL 100 MG, MULTIVIT INJECTION ADULT 10 ML in SOD... IVPB ONE (01:03)
[2018-12-13] MEDS ORDERED: METOCLOPRAMIDE HCL INJECTION 10 MG/2 ML VIAL ONE (01:06)
[2018-12-13] MEDS ORDERED: MECLIZINE HCL 25 MG TABLET (FP) ONE (01:45)
--- NOTE | 2018-12-13 02:22 | PN ---
Teaching Attending Note Name of Resident: Patrica Gonzalez ATTENDING PHYSICIAN STATEMENT I saw and evaluated the patient. I reviewed the resident's note and discussed the case with the resident. I agree with the resident's findings and plan as documented. SUBJECTIVE: Patient is 48 year old homeless man with PMH of alcohol abuse, depression, chronic left shoulder pain, cocaine use and multiple ER visits for intoxication who presented intoxicated then subsequently sobered up 6 hours later and complained of "dizziness" and felt unsteady while ambulating. States that he has had this issue before and was seen at [facility] and the [place] for the same issue. He also states that he has no where to go and [facility]. Denies fever, chills, nausea, vomiting, diarrhea or dysuria. OBJECTIVE: Somnolent but arousable Vital Signs Period Temp Pulse Resp BP Sys/Pena Pulse Ox Last 24 Hr 97.8 F-97.9 F 76-88 16-18 115-115/71-71 98-100 HEENT: No Jaundice, eye redness or discharge, PERRLA, EOMI. Normocephalic, atraumatic. External ears are normal and hearing is grossly intact. No nasal discharge. Neck: Supple, nontender. No palpable adenopathy or thyromegaly. No JVD Chest: Good effort. Clear to auscultation and percussion. Heart: Regular. No S3, rub or murmur Abdomen: Not distended, soft, nontender and no HSM. No rebound or guarding. Normal bowel sounds. Ext: Peripheral pulses intact. No leg edema. Skin: Warm and dry. No petechiae, rash or ecchymosis. Neuro: Alert. Oriented x3. CN 2-12 grossly intact. Sensation grossly intact in all four extremities and DTR are symmetric. Psych: Appropriate mood and affect. Poor insight. Current Medications Generic Name Dose Route Start Last Admin Trade Name Freq PRN Reason Stop Dose Admin Folic Acid 1 mg/ Thiamine HCl 1,000 mls @ 125 mls/hr 12/13/18 01:03 100 mg/ Multivitamins/Minerals IVPB 12/13/18 09:02 10 ml/ Sodium Chloride ONCE ONE Home Medications Medication Instructions Recorded Unobtainable 12/12/18 Abnormal Lab Results 12/12/18 21:46 MPV 7.2 L Neutrophils % 42.0 L D Lymphocytes % 46.4 H D ASSESSMENT AND PLAN: 1. Dizziness/Alcohol abuse - No acute pathology on head CT scan. Dizziness may be due to alcohol intoxication. Got IV NS and started on Meclizine for Vertigo in the ER and will consult neurology. Will implement [facility] alcohol withdrawal protocol and do neurochecks. Implement seizure, fall and aspiration precautions. Treat with thiamine and folic acid and monitor electrolytes (Ca,Mg, K,P). Counseled patient about abstaining from alcohol. Will consult air intelligence specialist and refer to alcohol detox upon discharge. 2. DVT prophylaxis - Lovenox 40 mg SQ q 24 hours. 3. Advance directives - Full code
[2018-12-13 03:55] VITALS: BP 117/70; PULSE 97; TEMP 98.7
--- NOTE | 2018-12-13 12:08 | EKG ---
Test Reason : Blood Pressure : / mmHG Vent. Rate : 075 BPM Atrial Rate : 075 BPM P-R Int : 138 ms QRS Dur : 086 ms QT Int : 392 ms P-R-T Axes : 063 047 047 degrees QTc Int : 437 ms NORMAL SINUS RHYTHM MINIMAL VOLTAGE CRITERIA FOR LVH, MAY BE NORMAL VARIANT BORDERLINE ECG WHEN COMPARED WITH ECG OF 31-OCT-2018 09:58, NONSPECIFIC T WAVE ABNORMALITY NO LONGER EVIDENT IN INFERIOR LEADS Confirmed by MARY MOSQUEDA, ALAN ([id number]) on 12/13/2018 12:08:38 PM Referred By: Confirmed By:ALAN HERNANDEZ MD
== END 2018-12-13 04:45 | disposition left against medical advice (07) ==
LOC: JER 15:03
PROC: 3E033GC Introduction of Other Therapeutic Substance into Peripheral Vein, Percutaneous Approach (ICD-10-PCS; principal; 2018-12-12)
DX: F10.120 Alcohol abuse with intoxication, uncomplicated (principal); R07.9 Chest pain, unspecified
CPT/HCPCS: 36415; 70450-TC; 80053; 80307; 82550; 82553; 84484; 85025; 85610; 93005; 93010; 99283-25; J7030

== ENCOUNTER 2018-12-31 13:36 | Inpatient (IN) | payer OTHER ==
--- NOTE | 2018-12-31 16:49 | HP ---
CIWA Score Nausea/Vomitin-No Nausea/No Vomiting Muscle Tremors: 3 Anxiety: 2 Agitation: 1-Slight > Activity Paroxysmal Sweats: 1-Minimal Palms Moist Orientation: 1-Uncertain about Date Tacttile Disturbances: 1-Very Mild Itch/Numbness Auditory Disturbances: 1-Very Mild Visual Disturbances: 1-Very Mild Sensitivity Headache: 2-Mild CIWA-Ar Total Score: 13 - Admission Criteria OASAS Guidelines: Admission for Medically Managed Detox: Requires at least one of the followin. CIWA greater than 12 2. Seizures within the past 24 hours 3. Delirium tremens within the past 24 hours 4. Hallucinations within the past 24 hours 5. Acute intervention needed for co occurring medical disorder 6. Acute intervention needed for co occurring psychiatric disorder 7. Severe withdrawal that cannot be handled at a lower level of care (continued vomiting, continued diarrhea, abnormal vital signs) requiring intravenous medication and/or fluids 8. Admission ROS [facility] Chief Complaint: WITHDRAWAL SYMPTOMS Allergies/Adverse Reactions: Allergies Allergy/AdvReac Type Severity Reaction Status Date / Time No Known Allergies Allergy Verified 12/15/18 09:47 History of Present Illness: 48 Y.O. MAN WITH AN EXTENSIVE HISTORY OF ALCOHOL AND COCAINE DEPENDENCE IS HERE SEEKING DETOX SERVICES. HE WAS LAST HERE FORM 12/08/18-12/10/18. DOES NOT HAVE A SIGNIFICANT PERIOD OF SOBRIETY. Exam Limitations: No Limitations - Ebola screening Have you traveled outside of the country in the last 21 days: No Have you had contact with anyone from an Ebola affected area: No Do you have a fever: No - Review of Systems Constitutional: Changes in sleep, Unexplained wgt Loss EENT: reports: Blurred Vision, Tearing Respiratory: reports: Shortness of Breath Cardiac: reports: No Symptoms Reported GI: reports: No Symptoms Reported : reports: No Symptoms Reported Musculoskeletal: reports: Back Pain Integumentary: reports: No Symptoms Reported Neuro: reports: Headache, Tremors, Other (H/O SYNCOPE) Endocrine: reports: No Symptoms Reported Hematology: reports: No Symptoms Reported Psychiatric: reports: Depressed Other Systems: Reviewed and Negative Patient History - Patient Medical History Hx Anemia: No Hx Asthma: No Hx Chronic Obstructive Pulmonary Disease (COPD): No Hx Cancer: No Hx Cardiac Disorders: No Hx Congestive Heart Failure: No Hx Hypertension: No Hx Hypercholesterolemia: No Hx Pacemaker: No HX Cerebrovascular Accident: No Hx Seizures: No Hx Dementia: No Hx Diabetes: No Hx Gastrointestinal Disorders: No Hx Liver Disease: No Hx Genitourinary Disorders: No Hx Sexually Transmitted Disorders: No Hx Renal Disease (ESRD): No Hx Thyroid Disease: No Hx Human Immunodeficiency Virus (HIV): No (last 07/08 negative) Hx Hepatitis C: No Hx Depression: Yes Hx Suicide Attempt: Yes Hx Bipolar Disorder: No Hx Schizophrenia: No - Patient Surgical History Past Surgical History: No Hx Neurologic Surgery: No Hx Cataract Extraction: No Hx Cardiac Surgery: No Hx Lung Surgery: No Hx Breast Surgery: No Hx Breast Biopsy: No Hx Abdominal Surgery: No Hx Appendectomy: No Hx Cholecystectomy: No Hx Genitourinary Surgery: No Hx Section: No Hx Orthopedic Surgery: No Anesthesia Reaction: No - PPD History Previous Implant?: Yes Documented Results: Negative w/proof Implanted On Prior [facility] Admission?: Yes Date: 07/11/18 Results: 0 mm PPD to be Administered?: No - Reproductive History Patient is a Female of Child Bearing Age (11 -55 yrs old): No - Smoking Cessation Smoking history: Never smoked Have you smoked in the past 12 months: No Hx Chewing Tobacco Use: No Initiated information on smoking cessation: No - Substance & Tx. History Hx Alcohol Use: Yes Hx Substance Use: Yes Substance Use Type: Alcohol, Cocaine - Substances abused Alcohol Substance route: Oral Frequency: Daily Amount used: 2 pints of vodka Age of first use: 20 Date of last use: 12/30/18 Cocaine Substance route: Inhalation Frequency: Daily Amount used: 2 gram Age of first use: 27 Date of last use: 12/28/18 Family Disease History - Family Disease History Family Disease History: Other: Father (alcohol,sober), Mother (88 - dementia ), Brother (five - healthy), Sister (three - healthy) Admission Physical Exam BHS - Vital Signs Vital Signs: Vital Signs - 24 hr 12/31/18 14:23 Temperature 97.2 F L Pulse Rate 102 H Respiratory 20 Rate Blood Pressure 103/63 - Physical General Appearance: Yes: Tremorous, Irritable, Anxious HEENTM: Yes: Hearing grossly Normal, Normocephalic, Normal Voice Respiratory: Yes: Chest Non-Tender, Lungs Clear, Normal Breath Sounds, No Respiratory Distress, No Accessory Muscle Use Neck: Yes: No masses,lesions,Nodules Breast: Yes: Breast Exam Deferred Cardiology: Yes: Regular Rhythm, Regular Rate Abdominal: Yes: Normal Bowel Sounds, Non Tender, Flat Genitourinary: Yes: Other (NO COMPLAINTS REPORTED) Musculoskeletal: Yes: Gait Steady, Pelvis Stable Extremities: Yes: Normal Capillary Refill, Normal Inspection Neurological: Yes: Alert, Normal Mood/Affect, Normal Response Integumentary: Yes: Normal Color, Warm Lymphatic: Yes: Within Normal Limits - Diagnostic (1) Weight loss Current Visit: Yes Status: Acute (2) Alcohol dependence with uncomplicated withdrawal Current Visit: Yes Status: Chronic (3) Cataract, left eye Current Visit: No Status: Chronic Qualifiers: Cataract type: traumatic Traumatic cataract type: localized Qualified Code(s): H26.112 - Localized traumatic opacities, left eye (4) Cocaine use disorder Current Visit: Yes Status: Chronic (5) Syncope Current Visit: Yes Status: Acute Qualifiers: Syncope type: unspecified Qualified Code(s): R55 - Syncope and collapse Cleared for Admission S - Detox or Rehab [facility] Level of Care: Medically Managed Detox Regimen/Protocol: Librium Breathalyzer - Breathalyzer Breathalyzer: 0.150 Urine Drug Screen - Test Device Lot number: [id number] Expiration date: 09/20/20 - Control Is test valid?: Yes - Results Drug screen NEGATIVE: No Urine drug screen results: THADDEUS-Cocaine, BZO-Benzodiazepines Inpatient Rehab Admission - Rehab Decision to Admit Inpatient rehab admission?: No
[2018-12-31] MEDS ORDERED: MAG HYDROX/AL HYDROX/SIMETH 30 ML UNIT-DOSE CUP PO PRN (16:53)
[2018-12-31] MEDS ORDERED: hydrOXYzine PAMOATE 25 MG CAPSULE (FP) PO PRN (16:53)
[2018-12-31] MEDS ORDERED: MELATONIN 5 MG TABLETS PO PRN (16:53)
[2018-12-31] MEDS ORDERED: chlordiazePOXIDE HCL 25 MG CAPSULE PO PRN (16:53)
[2018-12-31] MEDS ORDERED: MAGNESIUM CITRATE 300 ML BOTTLE PO PRN (16:53)
[2018-12-31] MEDS ORDERED: MENTHOL/PHENOL 1 EACH UD MM PRN (16:53)
[2018-12-31] MEDS ORDERED: MAGNESIUM HYDROX 2400MG/30ML ORAL SUSPENSION 30 ML CUP PO PRN (16:53)
[2018-12-31] MEDS ORDERED: METHOCARBAMOL 500 MG TABLET PO PRN (16:53)
[2018-12-31] MEDS ORDERED: BISMUTH SUBSALICYLATE 524 MG/30 ML UD PO PRN (16:53)
[2018-12-31] MEDS ORDERED: ACETAMINOPHEN 325 MG TABLET (FP) PO PRN ×2 (16:53)
[2018-12-31] MEDS ORDERED: IBUPROFEN 400 MG TABLET (FP) PO PRN (16:53)
[2018-12-31] MEDS ORDERED: chlordiazePOXIDE HCL 25 MG CAPSULE PO ONE (18:00)
[2018-12-31] MEDS: chlordiazePOXIDE HCL 25 MG CAPSULE PO SCH (22:32)
[2018-12-31] MEDS: THIAMINE HCL 100 MG TABLET (FP) PO SCH (22:33)
[2019-01-01] MEDS: chlordiazePOXIDE HCL 25 MG CAPSULE PO SCH ×4 (06:22→22:18)
--- NOTE | 2019-01-01 08:56 | PN ---
BHS CIWA - CIWA Score Nausea/Vomitin Muscle Tremors: 2 Anxiety: 2 Agitation: 2 Paroxysmal Sweats: 1-Minimal Palms Moist Orientation: 0-Oriented Tacttile Disturbances: 1-Very Mild Itch/Numbness Auditory Disturbances: 1-Very Mild Visual Disturbances: 0-None Headache: 2-Mild CIWA-Ar Total Score: 13 BHS Progress Note (SOAP) Subjective: alert,irritable,anxious,interrupted sleep,tremor Objective: 01/01/19 08:54 Vital Signs Temperature 97.7 F 01/01/19 06:00 Pulse Rate 73 01/01/19 06:00 Respiratory Rate 18 01/01/19 06:00 Blood Pressure 113/67 01/01/19 06:00 O2 Sat by Pulse Oximetry (%) 01/01/19 08:55 labs pending Assessment: 01/01/19 08:55 withdrawal symptom Plan: continue detox
[2019-01-01] MEDS: PRENATAL VITAMINS W/ FOLIC ACID TABLET (FP) PO SCH (10:19)
[2019-01-01 12:28] LABS: HEMATOCRIT 38.7 % (35.4-49); HEMOGLOBIN 12.6 GM/dL (11.7-16.9); MCH 28.2 pg (25.7-33.7); MCHC 32.6 g/dl (32.0-35.9); MEAN CELL VOLUME 86.5 fl (80-96); MEAN PLT VOLUME 7.8 fl (7.5-11.1); PLATELET COUNT 173 K/MM3 (134-434); RBC 4.48 M/mm3 (4.00-5.60); RDW 14.2 % (11.9-15.9); WHITE BLOOD COUNT 3.6 K/mm3 (4.0-10.0)
[2019-01-01 12:40] LABS: ALBUMIN 3.6 g/dl (3.4-5.0); BILIRUBIN,TOTAL 0.6 mg/dL (0.2-1); CALCIUM 8.7 mg/dL (8.5-10.1); CREATININE 0.8 mg/dL (0.55-1.3); POTASSIUM 4.1 mmol/L (3.5-5.1); TOT PROT 6.6 g/dl (6.4-8.2)
--- NOTE | 2019-01-01 15:05 | CONSULT ---
[facility] Psychiatric Consult - Data Date of interview: 01/01/19 Admission source: [facility] Identifying data: Readmission to [facility] for this 48 y/o [place] male self-referred for detoxification (alcohol, cocaine). Examined on . Patient is single, no dependents, homeless, unemployed and deprived of financial assistance. Substance Abuse History: Confirmed by patient in this sesssion : Smoking history : Never smoked. Have you smoked in the past 12 months: No. Hx Chewing Tobacco Use: No. Initiated information on smoking cessation: No. - Substance & Tx. History. Hx Alcohol Use: Yes. Hx Substance Use: Yes. Substance Use Type: Alcohol, Cocaine. - Substances abused. Alcohol. Substance route: Oral. Frequency: Daily. Amount used: 2 pints of vodka. Age of first use: 20. Date of last use: 12/30/18. Cocaine. Substance route: Inhalation. Frequency: Daily. Amount used: 2 gram. Age of first use: 27. Date of last use: 12/28/18 Medical History: Patient endorses good general health. Psychiatric History: Patient reports a history of two psychiatric hospitalizations ([facility], [facility] in [place]). Diagnosed with MDD and Schizophrenia. Mr Pedraza denies connection with OPD care. Admits to non-adherence to medications (in spite of confirmed refills for olanzapine 5 mg/day + sertraline 50 mg/day at [facility] + [facility] on 12/04/18 + 12/18/18 respectively). No rehospitalization since 2010(circumstance of admission : [place] Physical/Sexual Abuse/Trauma History: Patient denies. Additional Comment: Urine drug screen results: THADDEUS-Cocaine, BZO- Benzodiazepines. Noted. Mental Status Exam - Mental Status Exam Alert and Oriented to: Time, Place, Person Cognitive Function: Grossly Intact Patient Appearance: Unkempt, Disheveled Mood: Nervous, Withdrawn, Anxious Affect: Mood Congruent, Constricted Patient Behavior: Fatigued, Appropriate, Cooperative Speech Pattern: Clear (more comfortable in faroese), Appropriate Voice Loudness: Normal Thought Process: Goal Oriented Thought Disorder: Not Present Hallucinations: Denies Suicidal Ideation: Denies Homicidal Ideation: Denies Insight/Judgement: Poor Sleep: Poorly, Difficulty falling asleep Appetite: Good Muscle strength/Tone: Normal Gait/Station: Normal Psychiatric Findings - Problem List ([place] 1, 2,3) (1) Alcohol dependence with uncomplicated withdrawal Current Visit: Yes Status: Acute (2) Cocaine use disorder Current Visit: Yes Status: Chronic (3) History of schizophrenia Current Visit: Yes Status: Chronic (4) Insomnia Current Visit: Yes Status: Acute (5) Non compliance w medication regimen Current Visit: Yes Status: Chronic - Initial Treatment Plan Initial Treatment Plan: Psychoeducation. Sleep hygiene. Detoxification. AA meetings. Resume : olanzapine 5 mg po hs + zoloft 50 mg po daily. Side effecst/ benefits of both drugs are discussed with the patient. Consent (verbal) given to MD. Observation.
[2019-01-01] MEDS: OLANZapine 5 MG TABLET PO SCH (22:18)
[2019-01-01] MEDS: THIAMINE HCL 100 MG TABLET (FP) PO SCH (22:18)
[2019-01-02] MEDS: chlordiazePOXIDE HCL 25 MG CAPSULE PO SCH ×2 (06:21→10:27)
[2019-01-02] MEDS ORDERED: SERTRALINE HCL 50 MG TABLET (FP) PO SCH (10:00)
[2019-01-02] MEDS: PRENATAL VITAMINS W/ FOLIC ACID TABLET (FP) PO SCH (10:27)
--- NOTE | 2019-01-02 14:01 | PN ---
S CIWA - CIWA Score Nausea/Vomitin-No Nausea/No Vomiting Muscle Tremors: None Anxiety: 1-Mildly Anxious Agitation: 1-Slight > Activity Paroxysmal Sweats: No Perspiration Orientation: 0-Oriented Tacttile Disturbances: 0-None Auditory Disturbances: 0-None Visual Disturbances: 1-Very Mild Sensitivity Headache: 0-None Present CIWA-Ar Total Score: 3 BHS Progress Note (SOAP) Subjective: Anxious (Mild), Tremors (Mild). Patient Reports that current withdrawal symptoms are mild in degree and tolerable at this time. Objective: PATIENT A & O X 3, OBSERVED AMBULATING ON UNIT UNASSISTED. IN NO ACUTE DISTRESS. 01/02/19 13:59 Vital Signs Temperature 97.7 F 01/02/19 13:11 Pulse Rate 67 01/02/19 13:11 Respiratory Rate 18 01/02/19 13:11 Blood Pressure 136/95 01/02/19 13:11 O2 Sat by Pulse Oximetry (%) Laboratory Tests 01/01/19 01/01/19 01/01/19 07:30 07:30 07:30 WBC 3.6 L RBC 4.48 Hgb 12.6 Hct 38.7 MCV 86.5 MCH 28.2 MCHC 32.6 RDW 14.2 Plt Count 173 D MPV 7.8 Sodium 141 Potassium 4.1 Chloride 105 Carbon Dioxide 31 Anion Gap 5 L BUN 10 Creatinine 0.8 Est GFR (CKD-EPI)AfAm 124.16 Est GFR (CKD-EPI)NonAf 107.13 Random Glucose 99 Calcium 8.7 Total Bilirubin 0.6 AST 58 H ALT 51 Alkaline Phosphatase 74 Total Protein 6.6 Albumin 3.6 RPR Titer Nonreactive LABS NOTED. Assessment: 01/02/19 14:00 WITHDRAWAL SYMPTOMS. Plan: CONTINUE DETOX. INCREASE DAILY PO FLUID INTAKE. PATIENT REPORTS THAT CURRENT WITHDRAWAL / DETOX SYMPTOMS MILD IN DEGREE AND THAT HE IS TOLERATING THEM WELL. AT PATIENT'S REQUEST, CURRENT DETOX MEDICATION REGIMEN MODIFIED SO THAT PATIENT MAY BE DISCHARGED TOMORROW, 01/03/2019, HE WOULD LIKE TO RETURN TO WORK.
[2019-01-02] MEDS: chlordiazePOXIDE HCL 10 MG CAPSULE PO SCH ×2 (17:41→22:28)
[2019-01-02] MEDS: THIAMINE HCL 100 MG TABLET (FP) PO SCH (22:26)
[2019-01-02] MEDS: OLANZapine 5 MG TABLET PO SCH (22:27)
[2019-01-02] MEDS ORDERED: chlordiazePOXIDE HCL 10 MG CAPSULE PO SCH (23:00)
[2019-01-02] MEDS ORDERED: chlordiazePOXIDE HCL 10 MG CAPSULE PO PRN (23:00)
[2019-01-03 06:45] VITALS: BP 132/75; PULSE 62; TEMP 97.3
--- NOTE | 2019-01-03 08:32 | DS ---
[facility] Detox Discharge Summary Admission Date: 12/31/18 Discharge Date: 01/03/19 - History Present History: Alcohol Dependence, Cocaine Dependence - Physical Exam Results Vital Signs: Vital Signs Temperature 97.3 F L 01/03/19 06:44 Pulse Rate 62 01/03/19 06:44 Respiratory Rate 16 01/03/19 06:44 Blood Pressure 132/75 01/03/19 06:44 O2 Sat by Pulse Oximetry (%) - Treatment Hospital Course: Detox Protocol Followed, Detoxed Safely, Responded well, Discharged Condition Good, Rehab Referral Accepted - Medication Discharge Medications: Ambulatory Orders NK [No Known Home Medication] 12/15/18 - Diagnosis (1) Alcohol dependence with uncomplicated withdrawal Current Visit: Yes Status: Chronic (2) Insomnia Current Visit: Yes Status: Acute (3) Syncope Current Visit: Yes Status: Acute Qualifiers: Syncope type: unspecified Qualified Code(s): R55 - Syncope and collapse (4) Weight loss Current Visit: Yes Status: Acute (5) Cocaine use disorder Current Visit: Yes Status: Chronic (6) History of schizophrenia Current Visit: Yes Status: Chronic (7) Non compliance w medication regimen Current Visit: Yes Status: Chronic (8) Acute alcohol intoxication Current Visit: No Status: Acute Qualifiers: Complication of substance-induced condition: with unspecified complication Qualified Code(s): F10.929 - Alcohol use, unspecified with intoxication, unspecified (9) Acute electrocardiogram changes Current Visit: No Status: Acute (10) Alcohol intoxication Current Visit: No Status: Acute Qualifiers: Complication of substance-induced condition: uncomplicated Qualified Code(s ): F10.920 - Alcohol use, unspecified with intoxication, uncomplicated (11) Alcohol-induced mood disorder Current Visit: No Status: Acute (12) Chest pain Current Visit: No Status: Acute Qualifiers: Chest pain type: unspecified Qualified Code(s): R07.9 - Chest pain, unspecified (13) Malaise and fatigue Current Visit: No Status: Acute (14) Vertigo Current Visit: No Status: Acute (15) Cataract, left eye Current Visit: No Status: Chronic Qualifiers: Cataract type: traumatic Traumatic cataract type: localized Qualified Code(s): H26.112 - Localized traumatic opacities, left eye (16) Depression Current Visit: No Status: Chronic Qualifiers: Depression Type: unspecified Qualified Code(s): F32.9 - Major depressive disorder, single episode, unspecified (17) Shoulder pain Current Visit: No Status: Chronic Qualifiers: Chronicity: chronic Laterality: left Qualified Code(s): M25.512 - Pain in left shoulder; G89.29 - Other chronic pain - AMA Did Patient Leave Against Medical Advice: No (pt declined rehab/aftercare)
[2019-01-03] MEDS ORDERED: chlordiazePOXIDE HCL 10 MG CAPSULE PO SCH (23:00)
== END 2019-01-03 09:04 | disposition home or self-care (01) | DRG 774 ==
LOC: YASAS 13:36 → Y6N 17:15
PROVIDERS: ADMIT Surgery; ATTEND Surgery
PROC: HZ2ZZZZ Detoxification Services for Substance Abuse Treatment (ICD-10-PCS; principal; 2018-12-31)
DX: F10.230 Alcohol dependence with withdrawal, uncomplicated (principal); F10.220 Alcohol dependence with intoxication, uncomplicated; F10.24 Alcohol dependence with alcohol-induced mood disorder; F14.90 Cocaine use, unspecified, uncomplicated; F32.9 Major depressive disorder, single episode, unspecified; G47.00 Insomnia, unspecified; R63.4 Abnormal weight loss; R94.31 Abnormal electrocardiogram [ECG] [EKG]; H26.1 Traumatic cataract; M25.512 Pain in left shoulder; G89.29 Other chronic pain; R53.83 Other fatigue; Z91.14 Patient's other noncompliance with medication regimen
CPT/HCPCS: 36415; 80053; 85027; 86593

== ENCOUNTER 2019-01-29 10:54 | Inpatient (IN) | payer OTHER | END 2019-01-31 11:42 | disposition left against medical advice (07) | LOC: YASAS 10:54 → Y3N 12:53 ==

== ENCOUNTER 2019-02-12 11:52 | Inpatient (IN) | payer OTHER | END 2019-02-14 09:25 | disposition left against medical advice (07) | LOC: YASAS 11:52 → Y3N 15:00 ==

== ENCOUNTER 2019-05-16 09:31 | Inpatient (IN) | payer OTHER ==
[2019-05-16 10:02] VITALS: BMI 21.9
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
[2019-05-16] MEDS ORDERED: MAG HYDROX/AL HYDROX/SIMETH 30 ML UNIT-DOSE CUP PO PRN (11:04)
[2019-05-16] MEDS ORDERED: MENTHOL/PHENOL 1 EACH UD MM PRN (11:04)
[2019-05-16] MEDS ORDERED: MAGNESIUM HYDROX 2400MG/30ML ORAL SUSPENSION 30 ML CUP PO PRN (11:04)
[2019-05-16] MEDS ORDERED: IBUPROFEN 400 MG TABLET (FP) PO PRN (11:04)
[2019-05-16] MEDS ORDERED: hydrOXYzine PAMOATE 25 MG CAPSULE (FP) PO PRN (11:04)
[2019-05-16] MEDS ORDERED: MAGNESIUM CITRATE 300 ML BOTTLE PO PRN (11:04)
[2019-05-16] MEDS ORDERED: ACETAMINOPHEN 325 MG TABLET (FP) PO PRN ×2 (11:04)
[2019-05-16] MEDS ORDERED: MELATONIN 5 MG TABLETS PO PRN (11:04)
[2019-05-16] MEDS ORDERED: BISMUTH SUBSALICYLATE 262 MG/15 ML BTL PO PRN (11:04)
[2019-05-16] MEDS ORDERED: chlordiazePOXIDE HCL 25 MG CAPSULE PO PRN (11:05)
[2019-05-16] MEDS: chlordiazePOXIDE HCL 25 MG CAPSULE PO SCH ×3 (11:52→22:26)
[2019-05-16 14:37] LABS: HEMATOCRIT 37.2 % (35.4-49); HEMOGLOBIN 12.3 GM/dL (11.7-16.9); MCH 29.1 pg (25.7-33.7); MCHC 33.2 g/dl (32.0-35.9); MEAN CELL VOLUME 87.7 fl (80-96); MEAN PLT VOLUME 7.4 fl (7.5-11.1); PLATELET COUNT 234 K/MM3 (134-434); RBC 4.24 M/mm3 (4.00-5.60); RDW 14.6 % (11.9-15.9); WHITE BLOOD COUNT 4.6 K/mm3 (4.0-10.0)
[2019-05-16 14:47] LABS: BILIRUBIN,TOTAL 0.9 mg/dL (0.2-1); BLOOD UREA NITROGEN 10.9 mg/dL (7-18); CALCIUM 9.2 mg/dL (8.5-10.1); CREATININE 0.8 mg/dL (0.55-1.3); TOT PROT 7.5 g/dl (6.4-8.2)
[2019-05-16] MEDS ORDERED: THIAMINE HCL 100 MG TABLET (FP) PO SCH (22:00)
[2019-05-17] MEDS: chlordiazePOXIDE HCL 25 MG CAPSULE PO SCH (06:23)
[2019-05-17 09:20] VITALS: BP 126/95; PULSE 86; TEMP 96.6
--- NOTE | 2019-05-17 09:36 | DS ---
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 Denies SI/ HI. Patient advised on the risk of interrupting treatment which include relapse and . Patient reports he will follow up at [facility] in which he was schedule to start Vivitrol prior to admission to detox [facility]. Patient verbalizes understanding. Pertinent Past History: Left eye cataract - Physical Exam Results Vital Signs: Vital Signs Temperature 96.6 F L 05/17/19 09:20 Pulse Rate 86 05/17/19 09:20 Respiratory Rate 18 05/17/19 09:20 Blood Pressure 126/95 05/17/19 09:20 O2 Sat by Pulse Oximetry (%) Pertinent Admission Physical Exam Findings: Vital Signs Temperature 96.6 F L 05/17/19 09:20 Pulse Rate 86 05/17/19 09:20 Respiratory Rate 18 05/17/19 09:20 Blood Pressure 126/95 05/17/19 09:20 O2 Sat by Pulse Oximetry (%) Laboratory Last Values WBC 4.6 K/mm3 (4.0-10.0) 05/16/19 12:50 RBC 4.24 M/mm3 (4.00-5.60) 05/16/19 12:50 Hgb 12.3 GM/dL (11.7-16.9) 05/16/19 12:50 Hct 37.2 % (35.4-49) 05/16/19 12:50 MCV 87.7 fl (80-96) 05/16/19 12:50 MCH 29.1 pg (25.7-33.7) 05/16/19 12:50 MCHC 33.2 g/dl (32.0-35.9) 05/16/19 12:50 RDW 14.6 % (11.9-15.9) 05/16/19 12:50 Plt Count 234 K/MM3 (134-434) 05/16/19 12:50 MPV 7.4 fl (7.5-11.1) L D 05/16/19 12:50 Sodium 137 mmol/L (136-145) 05/16/19 12:50 Potassium 4.0 mmol/L (3.5-5.1) 05/16/19 12:50 Chloride 98 mmol/L (98-107) 05/16/19 12:50 Carbon Dioxide 27 mmol/L (21-32) 05/16/19 12:50 Anion Gap 11 MMOL/L (8-16) 05/16/19 12:50 BUN 10.9 mg/dL (7-18) 05/16/19 12:50 Creatinine 0.8 mg/dL (0.55-1.3) 05/16/19 12:50 Est GFR (CKD-EPI)AfAm 124.16 05/16/19 12:50 Est GFR (CKD-EPI)NonAf 107.13 05/16/19 12:50 Random Glucose 108 mg/dL (74-106) H 05/16/19 12:50 Calcium 9.2 mg/dL (8.5-10.1) 05/16/19 12:50 Total Bilirubin 0.9 mg/dL (0.2-1) 05/16/19 12:50 AST 34 U/L (15-37) 05/16/19 12:50 ALT 38 U/L (13-61) 05/16/19 12:50 Alkaline Phosphatase 84 U/L (45-117) 05/16/19 12:50 Total Protein 7.5 g/dl (6.4-8.2) 05/16/19 12:50 Albumin 4.0 g/dl (3.4-5.0) 05/16/19 12:50 RPR Titer Nonreactive (NONREACTIVE) 05/16/19 12:50 AOx3 no acute distress EENT WNL, + left eye cataract lungs clear s1 s2 no JVD skin intact no edema or erythema full ROM no gait abnormality - Treatment Hospital Course: Discharged Condition Good - Medication Discharge Medications: Ambulatory Orders NK [No Known Home Medication] 12/15/18 - Diagnosis (1) Alcohol dependence with uncomplicated withdrawal Current Visit: Yes Status: Acute (2) Cocaine use disorder Current Visit: Yes Status: Chronic (3) Cataract, left eye Current Visit: Yes Status: Chronic Qualifiers: Cataract type: traumatic Traumatic cataract type: localized Qualified Code(s): H26.112 - Localized traumatic opacities, left eye - AMA Did Patient Leave Against Medical Advice: Yes
[2019-05-17] MEDS ORDERED: PRENATAL VITAMINS W/ FOLIC ACID TABLET (FP) PO SCH (10:00)
[2019-05-18] MEDS ORDERED: chlordiazePOXIDE HCL 25 MG CAPSULE PO SCH (05:00)
[2019-05-19] MEDS ORDERED: chlordiazePOXIDE HCL 10 MG CAPSULE PO PRN
[2019-05-19] MEDS ORDERED: chlordiazePOXIDE HCL 10 MG CAPSULE PO SCH (05:00)
[2019-05-20] MEDS ORDERED: chlordiazePOXIDE HCL 10 MG CAPSULE PO SCH (05:00)
[2019-05-21] MEDS ORDERED: chlordiazePOXIDE HCL 10 MG CAPSULE PO ONE (05:00)
== END 2019-05-17 10:07 | disposition left against medical advice (07) | DRG 770 ==
LOC: YASAS 09:31 → Y6N 11:14
PROVIDERS: ADMIT Surgery; ATTEND Surgery
PROC: HZ2ZZZZ Detoxification Services for Substance Abuse Treatment (ICD-10-PCS; principal; 2019-05-16)
DX: F10.230 Alcohol dependence with withdrawal, uncomplicated (principal); F10.220 Alcohol dependence with intoxication, uncomplicated; F14.90 Cocaine use, unspecified, uncomplicated; H26.1 Traumatic cataract
CPT/HCPCS: 36415; 80053; 85027; 86593

== ENCOUNTER 2019-09-01 09:16 | Inpatient (IN) | payer OTHER ==
[2019-09-01 10:05] VITALS: BMI 24.9
--- NOTE | 2019-09-01 10:45 | HP ---
CIWA Score Nausea/Vomitin Muscle Tremors: 2 Anxiety: 1-Mildly Anxious Agitation: 1-Slight > Activity Paroxysmal Sweats: 2 Orientation: 1-Uncertain about Date Tacttile Disturbances: 1-Very Mild Itch/Numbness Auditory Disturbances: 0-None Visual Disturbances: 1-Very Mild Sensitivity Headache: 2-Mild CIWA-Ar Total Score: 13 - Admission Criteria OASAS Guidelines: Admission for Medically Managed Detox: Requires at least one of the followin. CIWA greater than 12 2. Seizures within the past 24 hours 3. Delirium tremens within the past 24 hours 4. Hallucinations within the past 24 hours 5. Acute intervention needed for co occurring medical disorder 6. Acute intervention needed for co occurring psychiatric disorder 7. Severe withdrawal that cannot be handled at a lower level of care (continued vomiting, continued diarrhea, abnormal vital signs) requiring intravenous medication and/or fluids 8. Patient presents the following: CIWA greater than 12 Admission Criteria Met: Admission criteria met Admitting History and Physical - Smoking History Smoking history: Never smoked Have you smoked in the past 12 months: No - Alcohol/Substance Use Hx Alcohol Use: Yes Admission ROS S - [facility] Chief Complaint: Withdrawal sx Allergies/Adverse Reactions: Allergies Allergy/AdvReac Type Severity Reaction Status Date / Time No Known Allergies Allergy Verified 09/01/19 10:02 History of Present Illness: Patient is a 49 year old male who presents for detox from alcohol, last treatment at [facility] was on 05/16/19 with discharge AMA the next day. Patient unable to provide information on any recent detox treatments. He denies alcohol related seizures/blackouts. Exam Limitations: No Limitations - Ebola screening Have you traveled outside of the country in the last 21 days: No (N) Have you had contact with anyone from an Ebola affected area: No Have you been sick,other than usual withdrawal symptoms: No Do you have a fever: No - Review of Systems Constitutional: Chills, Changes in sleep EENT: reports: No Symptoms Reported Respiratory: reports: Cough Cardiac: reports: Lightheadedness GI: reports: Nausea, Poor Fluid Intake, Abdominal cramping : reports: No Symptoms Reported Musculoskeletal: reports: Back Pain, Muscle Pain Integumentary: reports: Sweating Endocrine: reports: No Symptoms Reported Hematology: reports: No Symptoms Reported Psychiatric: reports: Anxious, Depressed Other Systems: Reviewed and Negative Patient History - Patient Medical History Hx Anemia: No Hx Asthma: No Hx Chronic Obstructive Pulmonary Disease (COPD): No Hx Cancer: No Hx Cardiac Disorders: No Hx Congestive Heart Failure: No Hx Hypertension: No Hx Hypercholesterolemia: No Hx Pacemaker: No HX Cerebrovascular Accident: No Hx Seizures: No Hx Dementia: No Hx Diabetes: No Hx Gastrointestinal Disorders: No Hx Liver Disease: No Hx Genitourinary Disorders: No Hx Sexually Transmitted Disorders: No Hx Renal Disease (ESRD): No Hx Thyroid Disease: No Hx Human Immunodeficiency Virus (HIV): No Hx Hepatitis C: No Hx Depression: Yes Hx Suicide Attempt: No Hx Bipolar Disorder: No Hx Schizophrenia: No - Patient Surgical History Past Surgical History: No - PPD History Previous Implant?: Yes Documented Results: Negative w/proof Implanted On Prior R Admission?: Yes Date: 07/11/18 Results: 0 mm PPD to be Administered?: Yes - Smoking Cessation Smoking history: Never smoked Have you smoked in the past 12 months: Yes Aproximately how many cigarettes per day: 20 Hx Chewing Tobacco Use: No Initiated information on smoking cessation: Yes 'Breaking Loose' booklet given: 09/01/19 - Substances abused Alcohol Substance route: Oral Frequency: Daily Amount used: 2 pints of vodka & 2 six beer Age of first use: 20 Date of last use: 09/01/19 Cocaine Substance route: Inhalation Frequency: 1-2 times per week Amount used: 1/2 -1 gram Age of first use: 27 Date of last use: 08/30/19 Heroin Substance route: Inhalation Frequency: 3-6 times per week Amount used: 2 bags Age of first use: 27 Date of last use: 02/08/19 Admission Physical Exam S - Vital Signs Vital Signs: Vital Signs - 24 hr 09/01/19 10:03 Temperature 98.6 F Pulse Rate 124 H Respiratory 14 Rate Blood Pressure 137/85 - Physical General Appearance: Yes: No Apparent Distress HEENTM: Yes: Normocephalic, Normal Voice, Other (poor dentition) Respiratory: Yes: Chest Non-Tender, Lungs Clear, No Respiratory Distress, No Accessory Muscle Use Neck: Yes: No masses,lesions,Nodules, Supple Breast: Yes: Breast Exam Deferred Cardiology: Yes: Regular Rhythm, Regular Rate, S1, S2 Abdominal: Yes: Normal Bowel Sounds, Non Tender, Soft Genitourinary: Yes: Within Normal Limits Back: Yes: Normal Inspection Musculoskeletal: Yes: Gait Steady, Back pain, Muscle Pain, Muscle weakness Extremities: Yes: Tremors, Coldness 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 Level of Care: Medically Managed Detox Regimen/Protocol: Librium Claeared for Rehab Admission: No Breathalyzer - Breathalyzer Breathalyzer: 0.126 Urine Drug Screen - Test Device Lot number: [id number] Expiration date: 03/20/21 - Control Is test valid?: Yes - Results Drug screen NEGATIVE: No Urine drug screen results: BZO-Benzodiazepines Inpatient Rehab Admission - Rehab Decision to Admit Inpatient rehab admission?: No
[2019-09-01] MEDS ORDERED: MAGNESIUM HYDROX 2400MG/30ML ORAL SUSPENSION 30 ML CUP PO PRN (10:47)
[2019-09-01] MEDS ORDERED: ACETAMINOPHEN 325 MG TABLET (FP) PO PRN ×2 (10:47)
[2019-09-01] MEDS ORDERED: MENTHOL/PHENOL 1 EACH UD MM PRN (10:47)
[2019-09-01] MEDS ORDERED: MELATONIN 5 MG TABLETS PO PRN (10:47)
[2019-09-01] MEDS ORDERED: IBUPROFEN 400 MG TABLET (FP) PO PRN (10:47)
[2019-09-01] MEDS ORDERED: NICOTINE POLACRILEX 2 MG GUM BUC PRN (10:47)
[2019-09-01] MEDS ORDERED: hydrOXYzine PAMOATE 25 MG CAPSULE (FP) PO PRN (10:47)
[2019-09-01] MEDS ORDERED: MAG HYDROX/AL HYDROX/SIMETH 30 ML UNIT-DOSE CUP PO PRN (10:47)
[2019-09-01] MEDS ORDERED: METHOCARBAMOL 500 MG TABLET PO PRN (10:47)
[2019-09-01] MEDS ORDERED: BISMUTH SUBSALICYLATE 524 MG/30 ML UD PO PRN (10:47)
[2019-09-01] MEDS ORDERED: chlordiazePOXIDE HCL 10 MG CAPSULE PO PRN (10:47)
[2019-09-01] MEDS ORDERED: MAGNESIUM CITRATE 300 ML BOTTLE PO PRN (10:47)
[2019-09-01] MEDS ORDERED: NICOTINE 14 MG/24 HOURS TOPICAL PATCH TD SCH (11:00)
[2019-09-01] MEDS: chlordiazePOXIDE HCL 25 MG CAPSULE PO SCH ×2 (12:25→22:26)
[2019-09-01] MEDS ORDERED: THIAMINE HCL 100 MG TABLET (FP) PO SCH (22:00)
[2019-09-02 07:09] VITALS: PULSE 90
[2019-09-02] MEDS: chlordiazePOXIDE HCL 25 MG CAPSULE PO SCH (07:09)
[2019-09-02 09:05] VITALS: BP 144/83; TEMP 97.5
--- NOTE | 2019-09-02 09:05 | CONSULT ---
[facility] Psychiatric Consult - Data Date of interview: 09/02/19 Psychiatric History: Patient is in the process of leaving the program against medical advice
--- NOTE | 2019-09-02 09:39 | PN ---
S Progress Note Note: pt did not want to stay and complete his detox; pt was advised to complete and reduce risk of relapse, seizures, DT, OD and/or loss. pt chose to sign out AMA.
--- NOTE | 2019-09-02 09:48 | DS ---
[facility] Detox Discharge Summary Admission Date: 09/01/19 - History Present History: Alcohol Dependence, Cocaine Dependence - Physical Exam Results Vital Signs: Vital Signs Temperature 97.5 F L 09/02/19 09:04 Pulse Rate 90 09/02/19 09:04 Respiratory Rate 20 09/02/19 09:04 Blood Pressure 144/83 09/02/19 09:04 O2 Sat by Pulse Oximetry (%) - Treatment Patient has Accepted a Rehab Referral to: pt refused rehab; referral provided - Medication Discharge Medications: Ambulatory Orders NK [No Known Home Medication] 12/15/18 - Diagnosis (1) Alcohol dependence with uncomplicated withdrawal Current Visit: Yes Status: Chronic (2) Nicotine dependence Current Visit: Yes Status: Chronic Qualifiers: Nicotine product type: cigarettes Substance use status: uncomplicated Qualified Code(s): F17.210 - Nicotine dependence, cigarettes, uncomplicated (3) Depression Current Visit: Yes Status: Chronic Qualifiers: Depression Type: major depressive disorder (4) Abrasion of knee, left Current Visit: No Status: Acute Qualifiers: Encounter type: initial encounter Qualified Code(s): S80.212A - Abrasion, left knee, initial encounter (5) Eloped from emergency department Current Visit: No Status: Acute (6) Cataract, left eye Current Visit: No Status: Chronic Qualifiers: Cataract type: traumatic Traumatic cataract type: localized Qualified Code(s): H26.112 - Localized traumatic opacities, left eye (7) Cocaine use disorder Current Visit: No Status: Chronic (8) History of schizophrenia Current Visit: No Status: Chronic (9) Insomnia Current Visit: No Status: Chronic Qualifiers: Insomnia type: primary Qualified Code(s): F51.01 - Primary insomnia (10) Non-compliance Current Visit: No Status: Chronic (11) Substance induced mood disorder Current Visit: No Status: Chronic - AMA Did Patient Leave Against Medical Advice: Yes
[2019-09-02 09:51] LABS: HEMATOCRIT 38.6 % (35.4-49); MCH 29.4 pg (25.7-33.7); MCHC 33.7 g/dl (32.0-35.9); MEAN CELL VOLUME 87.4 fl (80-96); MEAN PLT VOLUME 7.6 fl (7.5-11.1); PLATELET COUNT 223 K/MM3 (134-434); RBC 4.41 M/mm3 (4.00-5.60); RDW 12.9 % (11.9-15.9); WHITE BLOOD COUNT 5.9 K/mm3 (4.0-10.0)
[2019-09-02] MEDS ORDERED: PRENATAL VITAMINS W/ FOLIC ACID TABLET (FP) PO SCH (10:00)
[2019-09-02 10:20] LABS: ALBUMIN 3.9 g/dl (3.4-5.0); BILIRUBIN,TOTAL 0.3 mg/dL (0.2-1); BLOOD UREA NITROGEN 14.6 mg/dL (7-18); CALCIUM 8.8 mg/dL (8.5-10.1); POTASSIUM 4.2 mmol/L (3.5-5.1); TOT PROT 7.1 g/dl (6.4-8.2)
[2019-09-03] MEDS ORDERED: chlordiazePOXIDE 5 MG CAPSULE PO SCH (05:00)
[2019-09-04] MEDS ORDERED: chlordiazePOXIDE HCL 10 MG CAPSULE PO PRN
[2019-09-04] MEDS ORDERED: chlordiazePOXIDE HCL 10 MG CAPSULE PO SCH (05:00)
[2019-09-05] MEDS ORDERED: chlordiazePOXIDE HCL 10 MG CAPSULE PO ONE (05:00)
== END 2019-09-02 09:25 | disposition left against medical advice (07) | DRG 770 ==
LOC: YASAS 09:16 → Y6N 11:44
PROVIDERS: ADMIT Allergy & Immunology; ATTEND Allergy & Immunology
PROC: HZ2ZZZZ Detoxification Services for Substance Abuse Treatment (ICD-10-PCS; principal; 2019-09-01)
DX: F10.230 Alcohol dependence with withdrawal, uncomplicated (principal); F14.90 Cocaine use, unspecified, uncomplicated; F17.210 Nicotine dependence, cigarettes, uncomplicated; F19.24 Other psychoactive substance dependence with psychoactive substance-induced mood disorder; F32.9 Major depressive disorder, single episode, unspecified; G47.00 Insomnia, unspecified; H26.1 Traumatic cataract; Z91.14 Patient's other noncompliance with medication regimen; Z59.0 Homelessness
CPT/HCPCS: 36415; 80053; 85027; 86593

== ENCOUNTER 2019-10-27 09:21 | Inpatient (IN) | payer OTHER ==
[2019-10-27 11:58] VITALS: BMI 23.0
--- NOTE | 2019-10-27 13:01 | BHS.RME ---
Substance Use & Tx History - Substance Use History Alcohol Substance amount: vodka, beer Frequency of use: Daily Substance route: Oral - Last Treatment Date of last treatment: 10/24/2019 Where was last treatment: [facility] Physical/Psych/Mental Status - Behavior General Behavior: Increased activity (restlessness, agitation) Eye Contact: Normal - Cooperativeness Cooperativeness: Cooperative - Thinking Thought Processes: Logical - Physical Health Problems Is patient presently having any pain?: No Does patient presently have any injuries (include location): No Does patient currently have a fever: No Is patient : No (NA) CIWA Nausea/Vomitin Muscle Tremors: 2 Anxiety: 2 Agitation: 2 Paroxysmal Sweats: 2 Orientation: 0-Oriented Tacttile Disturbances: 2-Mild Itch/Numbness/Burn Auditory Disturbances: 0-None Visual Disturbances: 0-None Headache: 1-Very Mild CIWA-Ar Total Score: 13
--- NOTE | 2019-10-27 13:06 | HP ---
CIWA Score Nausea/Vomitin Muscle Tremors: 2 Anxiety: 2 Agitation: 2 Paroxysmal Sweats: 2 Orientation: 0-Oriented Tacttile Disturbances: 2-Mild Itch/Numbness/Burn Auditory Disturbances: 0-None Visual Disturbances: 0-None Headache: 1-Very Mild CIWA-Ar Total Score: 13 - Admission Criteria OASAS Guidelines: Admission for Medically Managed Detox: Requires at least one of the followin. CIWA greater than 12 2. Seizures within the past 24 hours 3. Delirium tremens within the past 24 hours 4. Hallucinations within the past 24 hours 5. Acute intervention needed for co occurring medical disorder 6. Acute intervention needed for co occurring psychiatric disorder 7. Severe withdrawal that cannot be handled at a lower level of care (continued vomiting, continued diarrhea, abnormal vital signs) requiring intravenous medication and/or fluids 8. Admitting History and Physical - Smoking History Smoking history: Current every day smoker Have you smoked in the past 12 months: Yes Aproximately how many cigarettes per day: 3 - Alcohol/Substance Use Hx Alcohol Use: Yes Admission ROS [facility] Chief Complaint: "mucho drinking" Allergies/Adverse Reactions: Allergies Allergy/AdvReac Type Severity Reaction Status Date / Time No Known Allergies Allergy Verified 10/27/19 11:51 History of Present Illness: Patient is a 49 years old man who presents for alcohol detox. As per records, patient presented for detox on 10/24/19 but was heavily intoxicated, agitated, combative, and threatening to hurt himself warranting transfer to [facility]. Patient reports he was kept overnight and discharged home the next day, he reports he has been drinking "mucho" since then. Exam Limitations: No Limitations - Ebola screening Have you traveled outside of the country in the last 21 days: No Have you had contact with anyone from an Ebola affected area: No Have you been sick,other than usual withdrawal symptoms: No Do you have a fever: No - Review of Systems Constitutional: Loss of Appetite, Changes in sleep EENT: reports: No Symptoms Reported Respiratory: reports: Cough (on and off) Cardiac: reports: No Symptoms Reported GI: reports: Nausea, Poor Appetite, Poor Fluid Intake, Abdominal cramping : reports: No Symptoms Reported Musculoskeletal: reports: Back Pain, Muscle Pain Integumentary: reports: No Symptoms Reported Neuro: reports: Headache, Tremors Endocrine: reports: No Symptoms Reported Hematology: reports: No Symptoms Reported Psychiatric: reports: Depressed, other (schizophrenia) Other Systems: Reviewed and Negative Patient History - Patient Medical History Hx Anemia: No Hx Asthma: No Hx Chronic Obstructive Pulmonary Disease (COPD): No Hx Cancer: No Hx Cardiac Disorders: No Hx Congestive Heart Failure: No Hx Hypertension: No Hx Hypercholesterolemia: No Hx Pacemaker: No HX Cerebrovascular Accident: No Hx Seizures: No Hx Dementia: No Hx Diabetes: No Hx Gastrointestinal Disorders: No Hx Liver Disease: No Hx Genitourinary Disorders: No Hx Sexually Transmitted Disorders: No Hx Renal Disease (ESRD): No Hx Thyroid Disease: No Hx Human Immunodeficiency Virus (HIV): No Hx Hepatitis C: No Hx Depression: Yes Hx Suicide Attempt: No Hx Bipolar Disorder: No Hx Schizophrenia: Yes - Patient Surgical History Past Surgical History: No - PPD History Previous Implant?: Yes Documented Results: Negative w/proof Implanted On Prior [facility] Admission?: Yes Date: 09/03/19 Results: 0 mm PPD to be Administered?: No - Smoking Cessation Smoking history: Current every day smoker Have you smoked in the past 12 months: Yes Aproximately how many cigarettes per day: 3 Hx Chewing Tobacco Use: No Initiated information on smoking cessation: Yes 'Breaking Loose' booklet given: 10/27/19 - Substances abused Alcohol Substance route: Oral Frequency: Daily Amount used: 1 pint of vodka (2) 24oz beers Age of first use: 19 Date of last use: 10/26/19 Admission Physical Exam BHS - Vital Signs Vital Signs: Vital Signs - 24 hr 10/27/19 11:54 Temperature 97.7 F Pulse Rate 75 Respiratory 16 Rate Blood Pressure 120/72 - Physical General Appearance: Yes: No Apparent Distress HEENTM: Yes: Hearing grossly Normal, Normocephalic, Normal Voice Respiratory: Yes: Chest Non-Tender, Lungs Clear, No Respiratory Distress, No Accessory Muscle Use Neck: Yes: No masses,lesions,Nodules, Supple Breast: Yes: Breast Exam Deferred Cardiology: Yes: Regular Rhythm, Regular Rate, S1, S2 Abdominal: Yes: Normal Bowel Sounds, Soft Genitourinary: Yes: Within Normal Limits Back: Yes: Normal Inspection Musculoskeletal: Yes: full range of Motion, Gait Steady, Back pain, Muscle weakness Extremities: Yes: Tremors, Other (right knee dry scab) Neurological: Yes: Alert, Normal Mood/Affect, Normal Response Integumentary: Yes: Moist Lymphatic: Yes: Within Normal Limits - Diagnostic (1) Alcohol dependence with uncomplicated withdrawal Current Visit: Yes Status: Acute (2) Cataract, left eye Current Visit: Yes Status: Chronic Qualifiers: Cataract type: traumatic Traumatic cataract type: localized Qualified Code(s): H26.112 - Localized traumatic opacities, left eye (3) Nicotine dependence Current Visit: Yes Status: Acute Qualifiers: Nicotine product type: cigarettes Substance use status: uncomplicated Qualified Code(s): F17.210 - Nicotine dependence, cigarettes, uncomplicated Cleared for Admission S - Detox or Rehab [facility] Level of Care: Medically Managed Detox Regimen/Protocol: Librium Claeared for Rehab Admission: No Breathalyzer - Breathalyzer Breathalyzer: 0 Urine Drug Screen - Test Device Lot number: [id number] Expiration date: 07/20/21 - Control Is test valid?: Yes - Results Drug screen NEGATIVE: No Urine drug screen results: THC-Marijuana, BZO-Benzodiazepines Inpatient Rehab Admission - Rehab Decision to Admit Inpatient rehab admission?: No
[2019-10-27] MEDS ORDERED: IBUPROFEN 400 MG TABLET (FP) PO PRN (13:11)
[2019-10-27] MEDS ORDERED: MAGNESIUM HYDROX 2400MG/30ML ORAL SUSPENSION 30 ML CUP PO PRN (13:11)
[2019-10-27] MEDS ORDERED: chlordiazePOXIDE HCL 10 MG CAPSULE PO PRN (13:11)
[2019-10-27] MEDS ORDERED: ACETAMINOPHEN 325 MG TABLET (FP) PO PRN ×2 (13:11)
[2019-10-27] MEDS ORDERED: ONDANSETRON *ODT* 4 MG TABLET SL ONE (13:11)
[2019-10-27] MEDS ORDERED: BISMUTH SUBSALICYLATE 524 MG/30 ML UD PO PRN (13:11)
[2019-10-27] MEDS ORDERED: MENTHOL/PHENOL 1 EACH UD MM PRN (13:11)
[2019-10-27] MEDS ORDERED: chlordiazePOXIDE HCL 25 MG CAPSULE PO ONE (13:11)
[2019-10-27] MEDS ORDERED: METHOCARBAMOL 500 MG TABLET PO PRN (13:11)
[2019-10-27] MEDS ORDERED: NICOTINE POLACRILEX 2 MG GUM BUC PRN (13:11)
[2019-10-27] MEDS ORDERED: MAG HYDROX/AL HYDROX/SIMETH 30 ML UNIT-DOSE CUP PO PRN (13:11)
[2019-10-27] MEDS ORDERED: MAGNESIUM CITRATE 300 ML BOTTLE PO PRN (13:11)
[2019-10-27] MEDS: hydrOXYzine PAMOATE 25 MG CAPSULE (FP) PO SCH ×3 (14:25→22:20)
[2019-10-27] MEDS: chlordiazePOXIDE HCL 25 MG CAPSULE PO SCH (22:19)
[2019-10-27] MEDS: THIAMINE HCL 100 MG TABLET (FP) PO SCH (22:20)
[2019-10-27] MEDS: MELATONIN 5 MG TABLETS PO SCH (22:20)
[2019-10-28] MEDS: hydrOXYzine PAMOATE 25 MG CAPSULE (FP) PO SCH ×4 (06:06→22:22)
[2019-10-28] MEDS: chlordiazePOXIDE HCL 25 MG CAPSULE PO SCH ×3 (06:06→22:20)
--- NOTE | 2019-10-28 10:16 | PN ---
S CIWA - CIWA Score Nausea/Vomitin-Mild Nausea/No Vomiting Muscle Tremors: 2 Anxiety: 3 Agitation: 3 Paroxysmal Sweats: No Perspiration Orientation: 0-Oriented Tacttile Disturbances: 1-Very Mild Itch/Numbness Auditory Disturbances: 0-None Visual Disturbances: 0-None Headache: 2-Mild CIWA-Ar Total Score: 12 BHS Progress Note (SOAP) Subjective: alert,irritable,anxious,interrupted sleep,tremor,pain in the body Objective: 10/28/19 10:14 Vital Signs Temperature 97.8 F 10/28/19 05:25 Pulse Rate 68 10/28/19 05:25 Respiratory Rate 18 10/28/19 05:25 Blood Pressure 120/71 10/28/19 05:25 O2 Sat by Pulse Oximetry (%) 10/28/19 10:15 labs pending Assessment: 10/28/19 10:15 withdrawal symptom Plan: continue detox librium regimen
[2019-10-28 10:25] LABS: HEMATOCRIT 39.6 % (35.4-49); MCH 28.5 pg (25.7-33.7); MCHC 32.9 g/dl (32.0-35.9); MEAN CELL VOLUME 86.7 fl (80-96); MEAN PLT VOLUME 8.3 fl (7.5-11.1); PLATELET COUNT 170 K/MM3 (134-434); RBC 4.56 M/mm3 (4.00-5.60); RDW 13.6 % (11.9-15.9); WHITE BLOOD COUNT 3.9 K/mm3 (4.0-10.0)
[2019-10-28 10:32] LABS: ALBUMIN 3.5 g/dl (3.4-5.0); BILIRUBIN,TOTAL 0.9 mg/dL (0.2-1); BLOOD UREA NITROGEN 12.9 mg/dL (7-18); CALCIUM 8.8 mg/dL (8.5-10.1); CREATININE 0.9 mg/dL (0.55-1.3); POTASSIUM 3.8 mmol/L (3.5-5.1); TOT PROT 6.8 g/dl (6.4-8.2)
[2019-10-28] MEDS: PRENATAL VITAMINS W/ FOLIC ACID TABLET (FP) PO SCH (11:06)
[2019-10-28] MEDS: THIAMINE HCL 100 MG TABLET (FP) PO SCH (22:20)
[2019-10-28] MEDS: MELATONIN 5 MG TABLETS PO SCH (22:22)
[2019-10-29] MEDS: chlordiazePOXIDE 5 MG CAPSULE PO SCH ×3 (05:17→21:14)
[2019-10-29] MEDS: hydrOXYzine PAMOATE 25 MG CAPSULE (FP) PO SCH ×3 (05:18→18:55)
--- NOTE | 2019-10-29 10:43 | PN ---
S CIWA - CIWA Score Nausea/Vomitin-Mild Nausea/No Vomiting Muscle Tremors: 2 Anxiety: 2 Agitation: 2 Paroxysmal Sweats: No Perspiration Orientation: 0-Oriented Tacttile Disturbances: 1-Very Mild Itch/Numbness Auditory Disturbances: 0-None Visual Disturbances: 0-None Headache: 1-Very Mild CIWA-Ar Total Score: 9 S Progress Note (SOAP) Subjective: alert,irritable,anxious,interrupted sleep,tremor Objective: 10/29/19 10:50 Vital Signs Temperature 97.8 F 10/29/19 09:33 Pulse Rate 83 10/29/19 09:33 Respiratory Rate 18 10/29/19 09:33 Blood Pressure 124/69 10/29/19 09:33 O2 Sat by Pulse Oximetry (%) Laboratory Last Values WBC 3.9 K/mm3 (4.0-10.0) L 10/28/19 07:50 RBC 4.56 M/mm3 (4.00-5.60) 10/28/19 07:50 Hgb 13.0 GM/dL (11.7-16.9) 10/28/19 07:50 Hct 39.6 % (35.4-49) 10/28/19 07:50 MCV 86.7 fl (80-96) 10/28/19 07:50 MCH 28.5 pg (25.7-33.7) 10/28/19 07:50 MCHC 32.9 g/dl (32.0-35.9) 10/28/19 07:50 RDW 13.6 % (11.9-15.9) 10/28/19 07:50 Plt Count 170 K/MM3 (134-434) D 10/28/19 07:50 MPV 8.3 fl (7.5-11.1) 10/28/19 07:50 Sodium 139 mmol/L (136-145) 10/28/19 07:50 Potassium 3.8 mmol/L (3.5-5.1) 10/28/19 07:50 Chloride 103 mmol/L (98-107) 10/28/19 07:50 Carbon Dioxide 29 mmol/L (21-32) 10/28/19 07:50 Anion Gap 7 MMOL/L (8-16) L 10/28/19 07:50 BUN 12.9 mg/dL (7-18) 10/28/19 07:50 Creatinine 0.9 mg/dL (0.55-1.3) 10/28/19 07:50 Est GFR (CKD-EPI)AfAm 117.47 10/28/19 07:50 Est GFR (CKD-EPI)NonAf 101.35 10/28/19 07:50 Random Glucose 104 mg/dL (74-106) 10/28/19 07:50 Calcium 8.8 mg/dL (8.5-10.1) 10/28/19 07:50 Total Bilirubin 0.9 mg/dL (0.2-1) 10/28/19 07:50 AST 22 U/L (15-37) 10/28/19 07:50 ALT 19 U/L (13-61) 10/28/19 07:50 Alkaline Phosphatase 78 U/L (45-117) 10/28/19 07:50 Total Protein 6.8 g/dl (6.4-8.2) 10/28/19 07:50 Albumin 3.5 g/dl (3.4-5.0) 10/28/19 07:50 RPR Titer Nonreactive (NONREACTIVE) 10/28/19 07:50 Assessment: 10/29/19 10:51 withdrawal symptom Plan: continue detox librium regimen,wbc is 3900,probably due to chronic alcoholism
[2019-10-29] MEDS: PRENATAL VITAMINS W/ FOLIC ACID TABLET (FP) PO SCH (10:59)
[2019-10-29] MEDS: THIAMINE HCL 100 MG TABLET (FP) PO SCH (21:15)
[2019-10-29] MEDS: MELATONIN 5 MG TABLETS PO SCH (22:21)
[2019-10-30] MEDS ORDERED: chlordiazePOXIDE HCL 10 MG CAPSULE PO PRN
[2019-10-30] MEDS: hydrOXYzine PAMOATE 25 MG CAPSULE (FP) PO SCH ×5 (06:03→22:38)
[2019-10-30] MEDS: chlordiazePOXIDE HCL 10 MG CAPSULE PO SCH ×3 (06:03→22:37)
[2019-10-30] MEDS: PRENATAL VITAMINS W/ FOLIC ACID TABLET (FP) PO SCH (10:10)
--- NOTE | 2019-10-30 11:55 | PN ---
S CIWA - CIWA Score Nausea/Vomitin-No Nausea/No Vomiting Muscle Tremors: 1-None Visible, but [place] Anxiety: 1-Mildly Anxious Agitation: 1-Slight > Activity Paroxysmal Sweats: No Perspiration Orientation: 0-Oriented Tacttile Disturbances: 0-None Auditory Disturbances: 0-None Visual Disturbances: 0-None Headache: 1-Very Mild CIWA-Ar Total Score: 4 BHS Progress Note (SOAP) Subjective: pt admitted for alcohol detox, c/o some nausea and so not eating well. would like ensure O: Vital Signs - 24 hr 10/29/19 10/29/19 10/30/19 16:36 21:14 03:37 Temperature 98.1 F 97.7 F Pulse Rate 60 69 Respiratory 20 18 18 Rate Blood Pressure 109/71 132/65 10/30/19 10/30/19 05:25 08:40 Temperature 97.4 F L 97.8 F Pulse Rate 59 L 61 Respiratory 18 17 Rate Blood Pressure 117/70 104/64 Laboratory Tests 10/28/19 10/28/19 10/28/19 07:50 07:50 07:50 WBC 3.9 L RBC 4.56 Hgb 13.0 Hct 39.6 MCV 86.7 MCH 28.5 MCHC 32.9 RDW 13.6 Plt Count 170 D MPV 8.3 Sodium 139 Potassium 3.8 Chloride 103 Carbon Dioxide 29 Anion Gap 7 L BUN 12.9 Creatinine 0.9 Est GFR (CKD-EPI)AfAm 117.47 Est GFR (CKD-EPI)NonAf 101.35 Random Glucose 104 Calcium 8.8 Total Bilirubin 0.9 AST 22 ALT 19 Alkaline Phosphatase 78 Total Protein 6.8 Albumin 3.5 RPR Titer Nonreactive T.pallidum Ab Interpret 10/28/19 07:50 WBC RBC Hgb Hct MCV MCH MCHC RDW Plt Count MPV Sodium Potassium Chloride Carbon Dioxide Anion Gap BUN Creatinine Est GFR (CKD-EPI)AfAm Est GFR (CKD-EPI)NonAf Random Glucose Calcium Total Bilirubin AST ALT Alkaline Phosphatase Total Protein Albumin RPR Titer T.pallidum Ab Interpret Cancelled a/p AUD- continue detox anticipate discharge tomorrow ensure ordered
[2019-10-30] MEDS: THIAMINE HCL 100 MG TABLET (FP) PO SCH (22:37)
[2019-10-30] MEDS: MELATONIN 5 MG TABLETS PO SCH (22:39)
[2019-10-31] MEDS ORDERED: chlordiazePOXIDE HCL 10 MG CAPSULE PO ONE (05:00)
[2019-10-31] MEDS: hydrOXYzine PAMOATE 25 MG CAPSULE (FP) PO SCH ×2 (06:52→10:33)
--- NOTE | 2019-10-31 08:49 | DS ---
[facility] Detox Discharge Summary Admission Date: 10/27/19 Discharge Date: 10/31/19 - History Present History: Alcohol Dependence, Cocaine Dependence - Physical Exam Results Vital Signs: Vital Signs Temperature 97.9 F 10/31/19 05:25 Pulse Rate 60 10/31/19 05:25 Respiratory Rate 18 10/31/19 05:25 Blood Pressure 125/59 L 10/31/19 05:25 O2 Sat by Pulse Oximetry (%) Pertinent Admission Physical Exam Findings: Vital Signs Temperature 97.9 F 10/31/19 05:25 Pulse Rate 60 10/31/19 05:25 Respiratory Rate 18 10/31/19 05:25 Blood Pressure 125/59 L 10/31/19 05:25 O2 Sat by Pulse Oximetry (%) Laboratory Tests 10/28/19 10/28/19 10/28/19 07:50 07:50 07:50 WBC 3.9 L RBC 4.56 Hgb 13.0 Hct 39.6 MCV 86.7 MCH 28.5 MCHC 32.9 RDW 13.6 Plt Count 170 D MPV 8.3 Sodium 139 Potassium 3.8 Chloride 103 Carbon Dioxide 29 Anion Gap 7 L BUN 12.9 Creatinine 0.9 Est GFR (CKD-EPI)AfAm 117.47 Est GFR (CKD-EPI)NonAf 101.35 Random Glucose 104 Calcium 8.8 Total Bilirubin 0.9 AST 22 ALT 19 Alkaline Phosphatase 78 Total Protein 6.8 Albumin 3.5 RPR Titer Nonreactive T.pallidum Ab Interpret 10/28/19 07:50 WBC RBC Hgb Hct MCV MCH MCHC RDW Plt Count MPV Sodium Potassium Chloride Carbon Dioxide Anion Gap BUN Creatinine Est GFR (CKD-EPI)AfAm Est GFR (CKD-EPI)NonAf Random Glucose Calcium Total Bilirubin AST ALT Alkaline Phosphatase Total Protein Albumin RPR Titer T.pallidum Ab Interpret Cancelled aaox3 ambulating no acute distress lungs CTA - Treatment Hospital Course: Detox Protocol Followed, Detoxed Safely, Responded well, Discharged Condition Good, Rehab Referral Accepted - Medication Discharge Medications: Ambulatory Orders NK [No Known Home Medication] 12/15/18 - Diagnosis (1) Alcohol dependence with uncomplicated withdrawal Current Visit: Yes Status: Chronic (2) Nicotine dependence Current Visit: Yes Status: Chronic Qualifiers: Nicotine product type: cigarettes Substance use status: uncomplicated Qualified Code(s): F17.210 - Nicotine dependence, cigarettes, uncomplicated (3) Cataract, left eye Current Visit: Yes Status: Chronic Qualifiers: Cataract type: traumatic Traumatic cataract type: localized Qualified Code(s): H26.112 - Localized traumatic opacities, left eye (4) Abrasion of knee, left Current Visit: No Status: Acute Qualifiers: Encounter type: initial encounter Qualified Code(s): S80.212A - Abrasion, left knee, initial encounter (5) Eloped from emergency department Current Visit: No Status: Acute (6) Alcohol dependence Current Visit: No Status: Chronic (7) Cocaine use disorder Current Visit: No Status: Chronic (8) Depression Current Visit: No Status: Chronic Qualifiers: Depression Type: major depressive disorder (9) History of schizophrenia Current Visit: No Status: Chronic (10) Insomnia Current Visit: No Status: Chronic Qualifiers: Insomnia type: primary Qualified Code(s): F51.01 - Primary insomnia (11) Non-compliance Current Visit: No Status: Chronic (12) Substance induced mood disorder Current Visit: No Status: Chronic - AMA Did Patient Leave Against Medical Advice: No
[2019-10-31 09:47] VITALS: BP 118/78; PULSE 61; TEMP 98.3
[2019-10-31] MEDS: PRENATAL VITAMINS W/ FOLIC ACID TABLET (FP) PO SCH (10:33)
== END 2019-10-31 11:10 | disposition home or self-care (01) | DRG 774 ==
LOC: YASAS 09:21 → Y6N 13:29
PROVIDERS: ADMIT Allergy & Immunology; ATTEND Allergy & Immunology
PROC: HZ2ZZZZ Detoxification Services for Substance Abuse Treatment (ICD-10-PCS; principal; 2019-10-27)
DX: F10.230 Alcohol dependence with withdrawal, uncomplicated (principal); F14.20 Cocaine dependence, uncomplicated; F17.210 Nicotine dependence, cigarettes, uncomplicated; F19.24 Other psychoactive substance dependence with psychoactive substance-induced mood disorder; F32.9 Major depressive disorder, single episode, unspecified; G47.00 Insomnia, unspecified; H26.1 Traumatic cataract; Z59.0 Homelessness; Z91.19 Patient's noncompliance with other medical treatment and regimen
CPT/HCPCS: 36415; 80053; 85027; 86593

== ENCOUNTER 2020-04-02 08:50 | Inpatient (IN) | payer OTHER ==
--- NOTE | 2020-04-02 09:11 | BHS.RME ---
Substance Use & Tx History - Substance Use History Alcohol Substance amount: 2 pints Vodka, 11 beers x 12 ounce Frequency of use: Daily Date of Last Use: 04/02/20 Cocaine- Powder Substance amount: $20 Frequency of use: Less than 3 times per week Substance route: Inhalation (ex: sniffing or snorting) Date of Last Use: 03/30/20 - Last Treatment Date of last treatment: January 17 -January 21, 2020 Treatment type: Substance Use Disorder ([facility]) Where was last treatment: Detox Physical/Psych/Mental Status - Behavior General Behavior: Decreased activity Eye Contact: Normal - Cooperativeness Cooperativeness: Cooperative - Thinking Thought Processes: Tight Thought content: Future oriented - Physical Health Problems Is patient presently having any pain?: No Does patient presently have any injuries (include location): Yes (left thumb work accident 3 days ago, laceration) Does patient currently have a fever: No CIWA Nausea/Vomitin-No Nausea/No Vomiting Muscle Tremors: 3 Anxiety: 3 Agitation: 0-Normal Activity Paroxysmal Sweats: 3 Orientation: 1-Uncertain about Date Tacttile Disturbances: 1-Very Mild Itch/Numbness Auditory Disturbances: 1-Very Mild Visual Disturbances: 0-None Headache: 0-None Present CIWA-Ar Total Score: 12
--- NOTE | 2020-04-02 10:49 | HP ---
CIWA Score Nausea/Vomitin-No Nausea/No Vomiting Muscle Tremors: 3 Anxiety: 3 Agitation: 0-Normal Activity Paroxysmal Sweats: 3 Orientation: 1-Uncertain about Date Tacttile Disturbances: 1-Very Mild Itch/Numbness Auditory Disturbances: 1-Very Mild Visual Disturbances: 0-None Headache: 0-None Present CIWA-Ar Total Score: 12 - Admission Criteria OASAS Guidelines: Admission for Medically Managed Detox: Requires at least one of the followin. CIWA greater than 12 2. Seizures within the past 24 hours 3. Delirium tremens within the past 24 hours 4. Hallucinations within the past 24 hours 5. Acute intervention needed for co occurring medical disorder 6. Acute intervention needed for co occurring psychiatric disorder 7. Severe withdrawal that cannot be handled at a lower level of care (continued vomiting, continued diarrhea, abnormal vital signs) requiring intravenous medication and/or fluids 8. Admitting History and Physical - Admission Chief Complaint: 'Alcohol and cocain detox' History of Present Illness: CC: 'Alcohol and cocain detox' HPI: Gigi is a 49 year old man PMH Schizophrenia, not on meds, hypotensive episodes, cataracts, who presents for detox from alcohol and cocaine. He states that he has been drinking for 15+ years but the amount and frequency increased dramatically 8 months ago when his mother . He is experiencing depression, with visual and auditory hallucinations of his mother telling him to 'come and join' her. He reports thinking about suicide but says he is not going to act on those thoughts. Gigi has had frequent hospital visits within the past month. He states that 3 weeks ago he fell, suffering laceration to the forehead, and presented to [facility] where he received stitches. 2 weeks ago he was moving and injured his shoulder, and was seen at [facility]. While being evaluated at [facility], he disclosed he was suffering from auditory and visual cohen ucinations, and he was transferred to the psychiatric floor where he received 4 days of treatment. He states this was minimally effective, is still experiencing the hallucinations, and is extremely depressed. Gigi also states he was taking the trash outside on Monday, when he slit his left thumb open on a can and suffered a laceration approximately 2 cm long. He washed the thumb, and but did not seek medical advice. He was sent to [facility] for wound treatment prior to being admitted at [facility]. Given wound has been 6 days since injury, patient is not a candidate for lack repair and will have to let the wound heal by secondary intention. He was started on clindamycin antibiotics and topical bacitracin for infection prophylaxis with strict follow-up with hand specialist. - Substance Use History Alcohol Substance amount: 2 pints Vodka, 11 beers x 12 ounce Frequency of use: Daily Date of Last Use: 04/02/20 Cocaine- Powder Substance amount: $20 Frequency of use: Less than 3 times per week Substance route: Inhalation (ex: sniffing or snorting) Date of Last Use: 03/30/20 - Last Treatment Date of last treatment: January 17 -January 21, 2020 Treatment type: Substance Use Disorder (CAROLINE) Where was last treatment: Detox PMH: left cataract, hypotensive episodes PSH:None Psych: Schizophrenia, depression (untreated) Social: [facility] Legal: None History Source: Patient Limitations to Obtaining History: No Limitations - Smoking History Smoking history: Former smoker Have you smoked in the past 12 months: Yes - Alcohol/Substance Use Hx Alcohol Use: Yes - Social History Usual Living Arrangement: Yes: Alone Admission [facility] Chief Complaint: 'Alcohol and cocain detox' Allergies/Adverse Reactions: Allergies Allergy/AdvReac Type Severity Reaction Status Date / Time No Known Allergies Allergy Verified 01/18/20 09:14 Exam Limitations: No Limitations - Ebola screening Have you traveled outside of the country in the last 21 days: No Have you had contact with anyone from an Ebola affected area: No Have you been sick,other than usual withdrawal symptoms: No Do you have a fever: No - Review of Systems Constitutional: No Symptoms Reported EENT: denies: Eye Pain, Ear Pain, Nose Congestion Respiratory: denies: Cough, Shortness of Breath Cardiac: reports: No Symptoms Reported. denies: Chest Pain GI: reports: No Symptoms Reported. denies: Constipated, Diarrhea : reports: No Symptoms Reported Musculoskeletal: reports: No Symptoms Reported Integumentary: reports: No Symptoms Reported. denies: Rash Neuro: reports: No Symptoms reported. denies: Headache Endocrine: reports: No Symptoms Reported Hematology: reports: No Symptoms Reported Psychiatric: reports: Judgement Intact, Orientated x3, Anxious, Depressed Patient History - Patient Medical History Hx Anemia: No Hx Asthma: No Hx Chronic Obstructive Pulmonary Disease (COPD): No Hx Cancer: No Hx Cardiac Disorders: No Hx Congestive Heart Failure: No Hx Hypertension: No Hx Hypercholesterolemia: No Hx Pacemaker: No HX Cerebrovascular Accident: No Hx Seizures: No Hx Dementia: No Hx Diabetes: No Hx Gastrointestinal Disorders: No Hx Liver Disease: No Hx Genitourinary Disorders: No Hx Sexually Transmitted Disorders: No Hx Renal Disease (ESRD): No Hx Thyroid Disease: No Hx Human Immunodeficiency Virus (HIV): No Hx Hepatitis C: No Hx Depression: Yes Hx Suicide Attempt: No Hx Bipolar Disorder: No Hx Schizophrenia: Yes - Patient Surgical History Past Surgical History: No Hx Neurologic Surgery: No Hx Cataract Extraction: No Hx Cardiac Surgery: No Hx Lung Surgery: No Hx Breast Surgery: No Hx Breast Biopsy: No Hx Abdominal Surgery: No Hx Appendectomy: No Hx Cholecystectomy: No Hx Genitourinary Surgery: No Hx Section: No Hx Orthopedic Surgery: No Anesthesia Reaction: No - PPD History Date: 09/03/19 Results: 0 mm - Smoking Cessation Smoking history: Never smoked Have you smoked in the past 12 months: No Aproximately how many cigarettes per day: 5 Hx Chewing Tobacco Use: No Admission Physical Exam BHS - Vital Signs Vital Signs: BP 112/66 Pulse 8 RR 19 T 98.4 - Physical General Appearance: Yes: Within Normal Limits, Mild Distress, Tremorous, Anxious, Other (Depressed and tearful) HEENTM: Yes: Hearing grossly Normal, Normocephalic, CECELIA (bilateral cataracts) Respiratory: Yes: Within Normal Limits, Lungs Clear, No Respiratory Distress, No Accessory Muscle Use Neck: Yes: Within Normal Limits Breast: Yes: Breast Exam Deferred Cardiology: Yes: Within Normal Limits, Regular Rate, S1, S2. No: Murmur Abdominal: Yes: Within Normal Limits, Non Tender, Flat, Soft Back: Yes: Within Normal Limits Musculoskeletal: Yes: Within Normal Limits, Gait Steady Extremities: Yes: Within Normal Limits, Other (left thumb in bandage; right fourth digit deformity from injury 1 year ago) Neurological: Yes: Fully Oriented, Alert, Depressed Affect Integumentary: Yes: Normal Color, Dry, Warm - Diagnostic (1) Alcohol dependence with uncomplicated withdrawal Current Visit: Yes Status: Acute (2) Laceration of left thumb without complication Current Visit: Yes Status: Acute Qualifiers: Encounter type: initial encounter Qualified Code(s): S61.012A - Laceration without foreign body of left thumb without damage to nail, initial encounter (3) Cataract, left eye Current Visit: No Status: Chronic Qualifiers: Cataract type: traumatic Traumatic cataract type: localized Qualified Code(s): H26.112 - Localized traumatic opacities, left eye (4) Cocaine use disorder Current Visit: Yes Status: Acute (5) Depression Current Visit: Yes Status: Acute Qualifiers: Depression Type: major depressive disorder (6) History of schizophrenia Current Visit: Yes Status: Acute Cleared for Admission S - Detox or Rehab [facility] Level of Care: Medically Managed Screened but not Admitted - Documentation of Visit Screened but not Admitted: No Breathalyzer - Breathalyzer Breathalyzer: 0.082 Urine Drug Screen - Test Device Lot number: [id number] Expiration date: 03/24/22 - Control Is test valid?: Yes - Results Drug screen NEGATIVE: No Urine drug screen results: BZO-Benzodiazepines Inpatient Rehab Admission - Rehab Decision to Admit Inpatient rehab admission?: No
[2020-04-02] MEDS ORDERED: IBUPROFEN 400 MG TABLET (FP) PO PRN (13:33)
[2020-04-02] MEDS ORDERED: chlordiazePOXIDE HCL 25 MG CAPSULE PO PRN (13:33)
[2020-04-02] MEDS ORDERED: ACETAMINOPHEN 325 MG TABLET (FP) PO PRN ×2 (13:33)
[2020-04-02] MEDS ORDERED: BISMUTH SUBSALICYLATE 262 MG/15 ML BTL PO PRN (13:33)
[2020-04-02] MEDS ORDERED: MAGNESIUM CITRATE 300 ML BOTTLE PO PRN (13:33)
[2020-04-02] MEDS ORDERED: MENTHOL/PHENOL 1 EACH UD MM PRN (13:33)
[2020-04-02] MEDS ORDERED: ONDANSETRON *ODT* 4 MG TABLET SL ONE (13:33)
[2020-04-02] MEDS ORDERED: MAG HYDROX/AL HYDROX/SIMETH 30 ML UNIT-DOSE CUP PO PRN (13:33)
[2020-04-02] MEDS ORDERED: METHOCARBAMOL 500 MG TABLET PO PRN (13:33)
[2020-04-02] MEDS ORDERED: MAGNESIUM HYDROX 2400MG/30ML ORAL SUSPENSION 30 ML CUP PO PRN (13:33)
[2020-04-02 13:55] VITALS: BMI 25.2
[2020-04-02] MEDS: BACITRACIN 0.9 GM PACKET TP SCH ×2 (14:56→22:21)
[2020-04-02] MEDS: CLINDAMYCIN 150 MG PO SCH ×2 (15:19→22:21)
[2020-04-02 16:47] LABS: HEMATOCRIT 37.2 % (35.4-49); HEMOGLOBIN 12.2 GM/dL (11.7-16.9); MCH 28.9 pg (25.7-33.7); MCHC 32.8 g/dl (32.0-35.9); MEAN CELL VOLUME 88.1 fl (80-96); MEAN PLT VOLUME 7.9 fl (7.5-11.1); PLATELET COUNT 259 K/MM3 (134-434); RBC 4.22 M/mm3 (4.00-5.60)
[2020-04-02 16:59] LABS: ALBUMIN 4.2 g/dl (3.4-5.0); BILIRUBIN,TOTAL 0.7 mg/dL (0.2-1); BLOOD UREA NITROGEN 17.6 mg/dL (7-18); CALCIUM 8.5 mg/dL (8.5-10.1); POTASSIUM 4.3 mmol/L (3.5-5.1); TOT PROT 7.8 g/dl (6.4-8.2)
[2020-04-02] MEDS: chlordiazePOXIDE HCL 25 MG CAPSULE PO SCH ×2 (18:30→22:20)
[2020-04-02] MEDS: THIAMINE HCL 100 MG TABLET (FP) PO SCH (22:21)
[2020-04-02] MEDS: MELATONIN 5 MG TABLETS PO SCH (22:21)
[2020-04-03] MEDS: CLINDAMYCIN 150 MG PO SCH ×3 (06:10→22:32)
[2020-04-03] MEDS: chlordiazePOXIDE HCL 25 MG CAPSULE PO SCH ×4 (06:10→22:32)
--- NOTE | 2020-04-03 09:17 | PN ---
Teaching Attending Note Name of Resident: Shawna Rojo ATTENDING PHYSICIAN STATEMENT I saw and evaluated the patient. I reviewed the resident's note and discussed the case with the resident. I agree with the resident's findings and plan as documented. SUBJECTIVE: OBJECTIVE: ASSESSMENT AND PLAN: 1. Alcohol use disorder 2. Finger injury Plan 1. Librium detox protocol 2. antibiotics per [facility] ED rec
--- NOTE | 2020-04-03 10:21 | PN ---
[facility] CIWA - CIWA Score Nausea/Vomitin-Mild Nausea/No Vomiting Muscle Tremors: 2 Anxiety: 2 Agitation: 2 Paroxysmal Sweats: No Perspiration Orientation: 0-Oriented Tacttile Disturbances: 1-Very Mild Itch/Numbness Auditory Disturbances: 0-None Visual Disturbances: 0-None Headache: 2-Mild CIWA-Ar Total Score: 10 S Progress Note (SOAP) Subjective: alert,irritable,anxious,interrupted sleep,tremor,aching pian in the body and b ack Objective: 04/03/20 15:29 Vital Signs Temperature 98.4 F 04/03/20 12:58 Pulse Rate 68 04/03/20 12:58 Respiratory Rate 18 04/03/20 12:58 Blood Pressure 119/79 04/03/20 12:58 O2 Sat by Pulse Oximetry (%) 100 04/03/20 12:58 04/03/20 15:29 Laboratory Last Values WBC 6.0 K/mm3 (4.0-10.0) 04/02/20 14:00 RBC 4.22 M/mm3 (4.00-5.60) 04/02/20 14:00 Hgb 12.2 GM/dL (11.7-16.9) 04/02/20 14:00 Hct 37.2 % (35.4-49) 04/02/20 14:00 MCV 88.1 fl (80-96) 04/02/20 14:00 MCH 28.9 pg (25.7-33.7) 04/02/20 14:00 MCHC 32.8 g/dl (32.0-35.9) 04/02/20 14:00 RDW 15.0 % (11.9-15.9) 04/02/20 14:00 Plt Count 259 K/MM3 (134-434) D 04/02/20 14:00 MPV 7.9 fl (7.5-11.1) 04/02/20 14:00 Sodium 140 mmol/L (136-145) 04/02/20 14:00 Potassium 4.3 mmol/L (3.5-5.1) 04/02/20 14:00 Chloride 106 mmol/L (98-107) 04/02/20 14:00 Carbon Dioxide 28 mmol/L (21-32) 04/02/20 14:00 Anion Gap 6 MMOL/L (8-16) L 04/02/20 14:00 BUN 17.6 mg/dL (7-18) 04/02/20 14:00 Creatinine 1.0 mg/dL (0.55-1.3) 04/02/20 14:00 Est GFR (CKD-EPI)AfAm 103.42 04/02/20 14:00 Est GFR (CKD-EPI)NonAf 89.23 04/02/20 14:00 Random Glucose 82 mg/dL (74-106) 04/02/20 14:00 Calcium 8.5 mg/dL (8.5-10.1) 04/02/20 14:00 Total Bilirubin 0.7 mg/dL (0.2-1) 04/02/20 14:00 AST 22 U/L (15-37) 04/02/20 14:00 ALT 25 U/L (13-61) 04/02/20 14:00 Alkaline Phosphatase 71 U/L (45-117) 04/02/20 14:00 Total Protein 7.8 g/dl (6.4-8.2) 04/02/20 14:00 Albumin 4.2 g/dl (3.4-5.0) 04/02/20 14:00 Syphilis Serology Non-reactive (NONREACTIVE) 04/02/20 14:00 Assessment: 04/03/20 15:30 withdrawal symptom Plan: continue detox librium regimen
[2020-04-03] MEDS: PRENATAL VITAMINS W/ FOLIC ACID TABLET (FP) PO SCH (10:30)
[2020-04-03] MEDS: BACITRACIN 0.9 GM PACKET TP SCH ×2 (10:30→22:33)
[2020-04-03] MEDS ORDERED: PNEUMOCOCCAL 23 VACCINE 0.5 ML VIAL IM ONE (12:00)
[2020-04-03] MEDS ORDERED: PNEUMOC 13-VAL CONJ-DIP CRM/PF 0.5 ML DISP.SYRIN IM ONE (12:00)
--- NOTE | 2020-04-03 13:54 | CONSULT ---
[facility] Psychiatric Consult - Data Date of interview: 04/03/20 Admission source: [facility] Identifying data: Readmission to [address] [place] [address] for this 49 y/o [place]born male, self-referred for detoxification treatment. CAROLINE issues : alcohol, cocaine, nicotine. Patient is single, a father of one (claims no dependent in this interview), homeless (resides in a half-way), unemployed, deprived of financial assistance and supported on food stamps + odd jobs. Substance Abuse History: Discussed with the patient. CAROLINE profile as follows : Alcohol. Substance amount: 2 pints Vodka, 11 beers x 12 ounce. Frequency of use: Daily. Date of Last Use: 04/02/20. Cocaine- Powder. Substance amount: $20. Frequency of use: Less than 3 times per week. Substance route: Inhalation (ex: sniffing or snorting). Date of Last Use: 03/30/20. Last Treatment. Date of last treatment: January 17 -January 21, 2020. Treatment type: Substance Use Disorder (CAROLINE). Where was last treatment: Detox. History of multiple CAROLINE treatment failures. Medical History: Medical profile is remarkable for cataract (left eye) and chronic pain in left shoulder. Noted deformation of fourth finger (left hand) : old injury from punching the wall (years ago). Psychiatric History: Patient admits to a history of multiple psychiatric hospitalizations ([facility], [facility], [facility] in [place]). He has been reportedly diagnosed with MDD and Schizophrenia. Mr Pedraza admits to total non-adherence to psychiatric OPD care. Dropped ouf of follow-up at the [facility] mental health clinic in [place]. Records indicate past scripts for trazodone + aripriprazole + zoloft 50 mg + olanzapine + sertraline. NOT taken for months as per self-report. Patient was discharged, three weeks ago, from [facility] psychiatric inpatient service. Denies hisstory of suicide attempts. Physical/Sexual Abuse/Trauma History: Stressors : of mother (eight months ago), homelessness, unemployment and addictions. Additional Comment: Urine drug screen results: BZO-Benzodiazepines. Noted. Mental Status Exam - Mental Status Exam Alert and Oriented to: Time, Place, Person Cognitive Function: Good Patient Appearance: Unkempt, Disheveled Mood: Nervous, Withdrawn Affect: Mood Congruent, Constricted Patient Behavior: Fatigued, Appropriate, Cooperative Speech Pattern: Clear, Appropriate (in greenlandic) Voice Loudness: Normal Thought Process: Goal Oriented Thought Disorder: Not Present Hallucinations: Denies (at time of this interview; ) Suicidal Ideation: Denies Homicidal Ideation: Denies Insight/Judgement: Poor Sleep: Poorly, Difficulty falling asleep Appetite: Good Gait/Station: Normal Psychiatric Findings - Problem List ([place] 1, 2,3) (1) Alcohol dependence with uncomplicated withdrawal Current Visit: Yes Status: Acute (2) Nicotine dependence Current Visit: Yes Status: Chronic Qualifiers: Nicotine product type: cigarettes Substance use status: in withdrawal Qualified Code(s): F17.213 - Nicotine dependence, cigarettes, with withdrawal (3) Substance induced mood disorder Current Visit: Yes Status: Chronic (4) Insomnia Current Visit: Yes Status: Chronic Qualifiers: Insomnia type: primary Qualified Code(s): F51.01 - Primary insomnia (5) History of schizophrenia Current Visit: Yes Status: Chronic (6) Non-compliance Current Visit: Yes Status: Chronic - Initial Treatment Plan Initial Treatment Plan: Interview conducted with medical students in attendance (with patient's consent). Psychoeducation. Sleep hygiene. Detoxification in progress. Patient is in agreement with plan to resume a second generation antipsychotic. Aripriprazole is selected with the patient's consent. Side effects/benefits discussed. Abilify 5 mg po daily (first dose now) + trazodone 50 mg po hs. Risk of priapism explained to patient. Agreement granted to MD. [place].
[2020-04-03] MEDS: ARIPiprazole 5 MG TABLET PO SCH (16:07)
[2020-04-03] MEDS: traZODone HCL 50 MG TABLET (FP) PO SCH (22:32)
[2020-04-03] MEDS: MELATONIN 5 MG TABLETS PO SCH (22:32)
[2020-04-03] MEDS: THIAMINE HCL 100 MG TABLET (FP) PO SCH (22:32)
[2020-04-04] MEDS: CLINDAMYCIN 150 MG PO SCH ×3 (06:28→22:55)
[2020-04-04] MEDS: chlordiazePOXIDE HCL 25 MG CAPSULE PO SCH ×4 (06:29→22:55)
[2020-04-04] MEDS: BACITRACIN 0.9 GM PACKET TP SCH ×2 (10:14→22:56)
[2020-04-04] MEDS: PRENATAL VITAMINS W/ FOLIC ACID TABLET (FP) PO SCH (10:14)
[2020-04-04] MEDS: ARIPiprazole 5 MG TABLET PO SCH (10:14)
--- NOTE | 2020-04-04 11:01 | PN ---
S CIWA - CIWA Score Nausea/Vomitin-No Nausea/No Vomiting Muscle Tremors: None Anxiety: 3 Agitation: 0-Normal Activity Paroxysmal Sweats: 3 Orientation: 0-Oriented Tacttile Disturbances: 0-None Auditory Disturbances: 0-None Visual Disturbances: 0-None Headache: 2-Mild CIWA-Ar Total Score: 8 BHS Progress Note (SOAP) Subjective: c/o headache, sweats, and headache. Objective: 04/04/20 11:01 Vital Signs 04/04/20 04/04/20 05:47 08:42 Temperature 98.0 F 97.1 F L Pulse Rate 67 68 Respiratory 18 18 Rate Blood Pressure 115/71 122/75 O2 Sat by Pulse 97 Oximetry (%) Laboratory Last Values WBC 6.0 K/mm3 (4.0-10.0) 04/02/20 14:00 RBC 4.22 M/mm3 (4.00-5.60) 04/02/20 14:00 Hgb 12.2 GM/dL (11.7-16.9) 04/02/20 14:00 Hct 37.2 % (35.4-49) 04/02/20 14:00 MCV 88.1 fl (80-96) 04/02/20 14:00 MCH 28.9 pg (25.7-33.7) 04/02/20 14:00 MCHC 32.8 g/dl (32.0-35.9) 04/02/20 14:00 RDW 15.0 % (11.9-15.9) 04/02/20 14:00 Plt Count 259 K/MM3 (134-434) D 04/02/20 14:00 MPV 7.9 fl (7.5-11.1) 04/02/20 14:00 Sodium 140 mmol/L (136-145) 04/02/20 14:00 Potassium 4.3 mmol/L (3.5-5.1) 04/02/20 14:00 Chloride 106 mmol/L (98-107) 04/02/20 14:00 Carbon Dioxide 28 mmol/L (21-32) 04/02/20 14:00 Anion Gap 6 MMOL/L (8-16) L 04/02/20 14:00 BUN 17.6 mg/dL (7-18) 04/02/20 14:00 Creatinine 1.0 mg/dL (0.55-1.3) 04/02/20 14:00 Est GFR (CKD-EPI)AfAm 103.42 04/02/20 14:00 Est GFR (CKD-EPI)NonAf 89.23 04/02/20 14:00 Random Glucose 82 mg/dL (74-106) 04/02/20 14:00 Calcium 8.5 mg/dL (8.5-10.1) 04/02/20 14:00 Total Bilirubin 0.7 mg/dL (0.2-1) 04/02/20 14:00 AST 22 U/L (15-37) 04/02/20 14:00 ALT 25 U/L (13-61) 04/02/20 14:00 Alkaline Phosphatase 71 U/L (45-117) 04/02/20 14:00 Total Protein 7.8 g/dl (6.4-8.2) 04/02/20 14:00 Albumin 4.2 g/dl (3.4-5.0) 04/02/20 14:00 Syphilis Serology Non-reactive (NONREACTIVE) 04/02/20 14:00 COVID-19 (RJ) Not detected (Not Detected) 04/02/20 14:11 Labs noted. Assessment: 04/04/20 11:01 AOX3 and in no acute respiratory distress. Full ROM, ambulating in the unit. Withdrawal symptoms. Plan: continue detox.
[2020-04-04] MEDS: traZODone HCL 50 MG TABLET (FP) PO SCH (22:55)
[2020-04-04] MEDS: THIAMINE HCL 100 MG TABLET (FP) PO SCH (22:55)
[2020-04-04] MEDS: MELATONIN 5 MG TABLETS PO SCH (22:56)
[2020-04-05] MEDS ORDERED: chlordiazePOXIDE HCL 10 MG CAPSULE PO PRN
[2020-04-05] MEDS: chlordiazePOXIDE HCL 10 MG CAPSULE PO SCH ×4 (05:43→22:18)
[2020-04-05] MEDS: CLINDAMYCIN 150 MG PO SCH ×3 (05:44→22:17)
[2020-04-05] MEDS: ARIPiprazole 5 MG TABLET PO SCH (10:54)
[2020-04-05] MEDS: PRENATAL VITAMINS W/ FOLIC ACID TABLET (FP) PO SCH (10:55)
[2020-04-05] MEDS: BACITRACIN 0.9 GM PACKET TP SCH ×2 (10:55→22:20)
--- NOTE | 2020-04-05 16:53 | PN ---
S CIWA - CIWA Score Nausea/Vomitin-No Nausea/No Vomiting Muscle Tremors: 1-None Visible, but [place] Anxiety: 3 Agitation: 1-Slight > Activity Paroxysmal Sweats: No Perspiration Orientation: 0-Oriented Tacttile Disturbances: 0-None Auditory Disturbances: 0-None Visual Disturbances: 2-Mild Sensitivity Headache: 0-None Present CIWA-Ar Total Score: 7 BHS Progress Note (SOAP) Subjective: 49 YEARS OLD MALE ADMITTED ON 04/02/20 FOR ALCOHOL WITHDRAWAL SX MANAGEMENT TREATING WITH LIBRIUM DETOX REGIMENT FEELING ANXIOUS PREFERS TO LEAVE THE DETOX TODAY COUNSELOR AND HEALTH SPECIALIST MET WITH MR HURLEY DISCUSSING BENEFITS OF LIBRIUM REGIMENT COMPLETION MR HURLEY IS WILLING TO STAY TONIGHT Objective: 04/05/20 16:52 Vital Signs - 24 hr 04/04/20 04/04/20 04/05/20 17:09 20:48 07:08 Temperature 97.5 F L 97.3 F L 97.5 F L Pulse Rate 93 H 68 62 Respiratory 18 18 18 Rate Blood Pressure 119/67 128/81 112/69 O2 Sat by Pulse 97 100 Oximetry (%) 04/05/20 04/05/20 08:28 12:15 Temperature 96.9 F L 98.5 F Pulse Rate 70 73 Respiratory 18 18 Rate Blood Pressure 132/84 127/85 O2 Sat by Pulse 99 Oximetry (%) Laboratory Tests 04/02/20 04/02/20 04/02/20 14:00 14:00 14:00 WBC 6.0 RBC 4.22 Hgb 12.2 Hct 37.2 MCV 88.1 MCH 28.9 MCHC 32.8 RDW 15.0 Plt Count 259 D MPV 7.9 Sodium 140 Potassium 4.3 Chloride 106 Carbon Dioxide 28 Anion Gap 6 L BUN 17.6 Creatinine 1.0 Est GFR (CKD-EPI)AfAm 103.42 Est GFR (CKD-EPI)NonAf 89.23 Random Glucose 82 Calcium 8.5 Total Bilirubin 0.7 AST 22 ALT 25 Alkaline Phosphatase 71 Total Protein 7.8 Albumin 4.2 Syphilis Serology Non-reactive COVID-19 (RJ) 04/02/20 14:11 WBC RBC Hgb Hct MCV MCH MCHC RDW Plt Count MPV Sodium Potassium Chloride Carbon Dioxide Anion Gap BUN Creatinine Est GFR (CKD-EPI)AfAm Est GFR (CKD-EPI)NonAf Random Glucose Calcium Total Bilirubin AST ALT Alkaline Phosphatase Total Protein Albumin Syphilis Serology COVID-19 (RJ) Not detected LAB NOTED Assessment: 04/05/20 16:53 ALCOHOL WITHDRAWAL Plan: LIBRIUM REGIMENT
[2020-04-05] MEDS: MELATONIN 5 MG TABLETS PO SCH (22:18)
[2020-04-05] MEDS: THIAMINE HCL 100 MG TABLET (FP) PO SCH (22:18)
[2020-04-05] MEDS: traZODone HCL 50 MG TABLET (FP) PO SCH (22:19)
[2020-04-06] MEDS ORDERED: chlordiazePOXIDE HCL 10 MG CAPSULE PO SCH (05:00)
[2020-04-06] MEDS: CLINDAMYCIN 150 MG PO SCH (05:50)
--- NOTE | 2020-04-06 09:24 | DS ---
[facility] Detox Discharge Summary Admission Date: 04/02/20 Discharge Date: 04/06/20 - History Present History: Alcohol Dependence Additional Comments: 49 years old male was admitted on 04/02/20 for alcohol withdrawal sx management treated with librium detox regiment mr ritchie prefers to leave the detox today returns to [facility] and works with the mental health case manager for alcohol recovery aftercare General Appearance: Yes: Within Normal Limits, Mild Distress, Tremorous, Anxious, Other (Depressed and tearful) HEENTM: Yes: Hearing grossly Normal, Normocephalic, CECELIA (bilateral cataracts) Respiratory: Yes: Within Normal Limits, Lungs Clear, No Respiratory Distress, No Accessory Muscle Use Neck: Yes: Within Normal Limits Breast: Yes: Breast Exam Deferred Cardiology: Yes: Within Normal Limits, Regular Rate, S1, S2. No: Murmur Abdominal: Yes: Within Normal Limits, Non Tender, Flat, Soft Back: Yes: Within Normal Limits Musculoskeletal: Yes: Within Normal Limits, Gait Steady Extremities: Yes: Within Normal Limits, Other (left thumb in bandage; right fourth digit deformity from injury 1 year ago) Neurological: Yes: Fully Oriented, Alert, Depressed Affect Integumentary: Yes: Normal Color, Dry, Warm Pertinent Past History: time for discharge 45 minutes treatment team met with mr ritchie to discuss the benefits of librium regiment com pletion mr ritchie insists to leave the detox today and return to [facility] - Physical Exam Results Vital Signs: Vital Signs Temperature 98.0 F 04/06/20 06:44 Pulse Rate 64 04/06/20 06:44 Respiratory Rate 16 04/06/20 06:44 Blood Pressure 118/68 04/06/20 06:44 O2 Sat by Pulse Oximetry (%) 100 04/06/20 06:44 Pertinent Admission Physical Exam Findings: alcohol withdrawal Laboratory Tests 04/02/20 04/02/20 04/02/20 14:00 14:00 14:00 WBC 6.0 RBC 4.22 Hgb 12.2 Hct 37.2 MCV 88.1 MCH 28.9 MCHC 32.8 RDW 15.0 Plt Count 259 D MPV 7.9 Sodium 140 Potassium 4.3 Chloride 106 Carbon Dioxide 28 Anion Gap 6 L BUN 17.6 Creatinine 1.0 Est GFR (CKD-EPI)AfAm 103.42 Est GFR (CKD-EPI)NonAf 89.23 Random Glucose 82 Calcium 8.5 Total Bilirubin 0.7 AST 22 ALT 25 Alkaline Phosphatase 71 Total Protein 7.8 Albumin 4.2 Syphilis Serology Non-reactive COVID-19 (RJ) 04/02/20 14:11 WBC RBC Hgb Hct MCV MCH MCHC RDW Plt Count MPV Sodium Potassium Chloride Carbon Dioxide Anion Gap BUN Creatinine Est GFR (CKD-EPI)AfAm Est GFR (CKD-EPI)NonAf Random Glucose Calcium Total Bilirubin AST ALT Alkaline Phosphatase Total Protein Albumin Syphilis Serology COVID-19 (RJ) Not detected lab noted - Treatment Hospital Course: Detox Protocol Followed, Detoxed Safely, Responded well, Discharged Condition Good, Rehab Referral Accepted Patient has Accepted a Rehab Referral to: [facility] case menager for aftercare referral - Medication Discharge Medications: Ambulatory Orders Bacitracin - [Bacitracin Topical Ointment -] 1 applic TP BID 7 Days #1 tube 04/02/20 Clindamycin HCl [Cleocin HCl] 300 mg PO TID 7 Days #21 capsule 04/02/20 - Diagnosis (1) Alcohol dependence with uncomplicated withdrawal Status: Acute (2) Nicotine dependence Status: Acute Qualifiers: Nicotine product type: cigarettes Substance use status: in withdrawal Qualified Code(s): F17.213 - Nicotine dependence, cigarettes, with withdrawal (3) Substance induced mood disorder Status: Suspected - AMA Did Patient Leave Against Medical Advice: No CIWA Score - CIWA Score Nausea/Vomitin-No Nausea/No Vomiting Muscle Tremors: 1-None Visible, but [place] Anxiety: 2 Agitation: 0-Normal Activity Paroxysmal Sweats: No Perspiration Orientation: 0-Oriented Tacttile Disturbances: 0-None Auditory Disturbances: 0-None Visual Disturbances: 0-None Headache: 0-None Present CIWA-Ar Total Score: 3
[2020-04-06 09:30] VITALS: BP 123/75; PULSE 82; TEMP 98.7
[2020-04-07] MEDS ORDERED: chlordiazePOXIDE HCL 10 MG CAPSULE PO ONE (05:00)
== END 2020-04-06 10:50 | disposition home or self-care (01) | DRG 774 ==
LOC: YASAS 08:50 → Y3N 14:03
PROVIDERS: ADMIT Allergy & Immunology; ATTEND Allergy & Immunology
PROC: HZ2ZZZZ Detoxification Services for Substance Abuse Treatment (ICD-10-PCS; principal; 2020-04-02)
DX: F10.230 Alcohol dependence with withdrawal, uncomplicated (principal); F14.20 Cocaine dependence, uncomplicated; F17.213 Nicotine dependence, cigarettes, with withdrawal; F19.24 Other psychoactive substance dependence with psychoactive substance-induced mood disorder; F20.9 Schizophrenia, unspecified; F32.9 Major depressive disorder, single episode, unspecified; F51.05 Insomnia due to other mental disorder; H26.1 Traumatic cataract; M25.512 Pain in left shoulder; M20.092 Other deformity of left finger(s); Z56.0 Unemployment, unspecified; Z59.0 Homelessness; Z91.19 Patient's noncompliance with other medical treatment and regimen
CPT/HCPCS: 36415; 80053; 85027; 86780; 90732; G0009; U0003